=== PATIENT | female | born 1960 | race Caucasian/White ===

== ENCOUNTER 2018-09-27 15:55 | Outpatient (REF) | payer BC, SELFPAY ==
[2018-09-27 22:05] LABS: Hemoglobin A1C 5.7 % (4.5-6.2)
[2018-09-27 22:09] LABS: TSH (W/Ref FT4) 2.52 uIU/mL (0.358-3.74)
== END 2018-09-27 16:15 ==
LOC: NCHCN 15:55
PROVIDERS: PCP Nurse Practitioner; Visit Provider Nurse Practitioner
DX: R20.2 Paresthesia of skin (principal)
CPT/HCPCS: 83036; 84443

== ENCOUNTER 2018-09-28 07:53 | Outpatient (CLI) | payer BC, SELFPAY ==
--- NOTE | 2018-09-28 08:09 | DI.RAD_ITS ---
SYMPTOMS/DIAGNOSIS: PARESTHESIA OF FOOT, R20.2, RIGHT FOOT PAIN, M79.671 RIGHT FOOT: There are mild degenerative changes involving the right foot. The bony structures are normally mineralized. There is no evidence of a fracture or dislocation.
== END 2018-09-28 08:13 ==
PROVIDERS: PCP Nurse Practitioner; Visit Provider Nurse Practitioner
DX: M79.671 Pain in right foot (principal); M19.071 Primary osteoarthritis, right ankle and foot
CPT/HCPCS: 73630

== ENCOUNTER 2018-10-30 00:46 | Outpatient (CLI) | payer BC, SELFPAY ==
--- NOTE | 2018-10-30 08:23 | DI.MAMMO_ITS ---
SYMPTOMS/DIAGNOSIS: SCREENING, Z12.31 MAMMOGRAM: Mammograms were interpreted according to the usual protocol including computer analysis with CAD system, tomosynthesis and C view imaging. Comparison with prior examinations. Breast density B. No masses or microcalcifications are seen. There is nothing to suggest malignancy. IMPRESSION: Negative mammogram. Routine screening is recommended. Category I. MQSA ASSESSMENT OF FINDINGS: Negative. Category 1. Patient will receive a letter notifying them of these results. BI-RADS category B. There are scattered areas of fibroglandular density.
== END 2018-10-30 01:06 ==
PROVIDERS: PCP Nurse Practitioner; Visit Provider Obstetrics & Gynecology Gynecology
DX: Z12.31 Encounter for screening mammogram for malignant neoplasm of breast (principal)
CPT/HCPCS: 77063; 77067

== ENCOUNTER 2019-09-19 08:31 | Outpatient (REF) | payer BC, SELFPAY ==
[2019-09-19 12:53] LABS: Hemoglobin A1C 5.9 % (4.5-6.2)
[2019-09-19 12:58] LABS: ALT 42 U/L (14-59); Anion Gap 10.6 mmol/L (3-11); BUN 15 mg/dL (7-18); CO2 26.4 mmol/L (21.0-32.0); CREATININE 0.91 mg/dL (0.55-1.02); Calcium 9.2 mg/dL (8.5-10.1); Chloride 105 mmol/L (98-107); Glucose 98 mg/dL (70-100); Potassium 4.6 mmol/L (3.5-5.1); Sodium 142 mmol/L (136-145)
[2019-09-20 20:50] LABS: AST 20 U/L (15-37)
== END 2019-09-19 08:51 ==
LOC: NCHCN 08:31
PROVIDERS: PCP Nurse Practitioner; Visit Provider Nurse Practitioner Family
DX: Z00.00 Encounter for general adult medical examination without abnormal findings (principal); E78.00 Pure hypercholesterolemia, unspecified
CPT/HCPCS: 80048; 83036; 84450; 84460

== ENCOUNTER 2019-10-04 11:57 | Outpatient (REF) | payer BC, SELFPAY ==
[2019-10-04 13:46] LABS: Calculated LDL 157 mg/dL; Cholesterol 266 mg/dL (50-200); HDL Cholesterol 34 mg/dL (40-60); Triglyceride 376 mg/dL (30-150)
== END 2019-10-04 12:17 ==
LOC: NCHCN 11:57
PROVIDERS: PCP Nurse Practitioner; Visit Provider Nurse Practitioner Family
DX: Z00.00 Encounter for general adult medical examination without abnormal findings (principal); E78.00 Pure hypercholesterolemia, unspecified
CPT/HCPCS: 80061

== ENCOUNTER 2019-11-05 00:07 | Outpatient (CLI) | payer BC, SELFPAY ==
--- NOTE | 2019-11-05 10:16 | DI.MAMMO_ITS ---
EXAM: MG MAMMO SCREENING CLINICAL HISTORY: SCREENING Z12.31. TECHNIQUE: Full field digital CC and MLO mammographic images were obtained with 3D tomosynthesis and utilizing computer aided detection (CAD). COMPARISON: Available for comparison. FINDINGS: Masses/Architectural Distortion: None seen. Microcalcifications: No suspicious pleomorphic-type are seen. Skin Thickening/Nipple Retraction: None. IMPRESSION: 1. No significant interval change with no specific features of malignancy noted. 2. Unless there is more urgent need, screening mammography is recommended, as per [employer] guidelines. BI-RADS Cat 1 - Negative Breast Density - Category B - Scattered areas of fibroglandular density A negative radiographic report should not delay biopsy if a dominant or clinically suspicious mass is present. Up to ten percent of cancers are not identified on mammography. A negative report may reinforce clinical impression. Adenosis and dense breasts may obscure an underlying neoplasm. False positive reports average 6 to 10%. Patient will receive a letter notifying them of these results.
== END 2019-11-05 00:27 ==
PROVIDERS: PCP Nurse Practitioner; Visit Provider Nurse Practitioner Family
DX: Z12.31 Encounter for screening mammogram for malignant neoplasm of breast (principal)
CPT/HCPCS: 77063; 77067

== ENCOUNTER 2020-01-14 07:18 | Day surgery (SDC) | payer BC, SELFPAY ==
--- NOTE | 2020-01-14 06:49 | W.COLOREPORT ---
Date of service: 01/14/20 Time of Service: 09:37 Colonoscopy Report Date of procedure: 01/14/20 Pre-op diagnosis general: Colon Cancer Screening Post-op diagnosis procedure note: other (small polyp) Procedure: Colonoscopy with polypectomy by forceps Surgeon: Carlee Gomez Anesthesia proc note operative: other (General/ ASA 2/Lyssa Farfan CRNA) Estimated blood loss (mL): 2 Pathology: other (ASCENDING COLON POLYP) Complications: None Disposition: same day Indications: Mrs. Morales is a pleasant 59-year-old female who is here today to discuss a screening colonoscopy. Her last colonoscopy was in [address] White. At that time she had no polyps. Her only finding was that of mild diverticulosis. She has done well since then. A few years ago she did develop some intermittent diarrhea which she attributed to her anxiety. The episodes of diarrhea have decreased since she retired last year. She also has some intermittent urgency depending on what she eats. She has noted increase in loose stools and urgency after eating a lot of milk products as well as salads. She denies any melena or hematochezia. Once in a while she does have a little bit of blood on the tissue paper. No rectal pain. She has no family history of colon cancer. She has had no unintentional weight loss. She was recently diagnosed with prediabetes so she is at this point trying to eat a better diet and lose a little weight. Risks, benefits and complications have been reviewed. Complications include but are not limited to bleeding, pain, perforation, missed small lesion/polyp, sore throat, aspiration and adverse reaction to the medications. Questions were entertained and answered to their satisfaction and they wished to proceed. No guarantees were given or implied. Prep: Miralax/Dulcolax Procedure Start Time: 09:07 Procedure End Time: 09:33 Retraction Time: 18 minutes Findings: One small flat polyp just distal to the cecum Procedure Description: After informed consent was obtained the patient was taken to the procedure room and placed in a left decubitous position. Monitors were applied and a time out was done. The patients name, date of , procedure, allergies to medications and metal in their body was reviewed. The patient was then sedated. Once sedated and comfortable a rectal exam was done. External exam was normal. Internal exam revealed a normal sphincter tone and no palpable masses. The scope was then introduced and retro-flexed. No internal hemorrhoids were identified. The scope was then advanced to the cecum without difficulty. The TI and appendiceal orifice were identified. The prep was adequate. The scope was then slowly retracted over 18 minutes back into the rectum. Polyps were removed with cold forceps in the ascending colon. The scope was removed and the patient was woken up and taken back to Same day surgery in stable condition. The patient tolerated the procedure well and there were no immediate complications. Follow up: Follow up will depend on final pathology, unless they develop changes in bowel habits or other new gastrointestinal complaints.
--- NOTE | 2020-01-14 06:50 | W.PM.DSUDISC ---
Discharge Plan Disposition Patient Disposition: HOME Condition: Good Discharge Details Reason For Visit: Colon CAncer Screening Attending Provider: Carlee Gomez Primary Care Provider: Marilou Velasquez Home Meds and New Rx's Prescriptions: Continued multivitamin [Daily Multi-Vitamin] 1 EACH tablet 1 ea PO DAILY RF: 0 ergocalciferol (vitamin D2) 400 UNIT tablet 1 tab-cap PO DAILY RF: 0 fluoxetine 20 MG capsule 20 mg PO DAILY Qty: 60 RF: 6 Discontinued polyethylene glycol 3350 17 gram/dose powder 238 g PO ONCE Qty: 238 RF: 0 No Action ibuprofen [Advil] 200 mg Tablet 200 mg PO Q6H PRNRF: 0 fexofenadine [Vannessa Allergy] 180 mg Tablet 180 mg PO Q24H RF: 0 Discharge Instructions Additional Instructions: Findings: One small polyp Follow up: depends on final pathology report Please call if you develop: fevers >101.5 Nausea or Vomiting Abdominal pain that is not transient DAY SURGERY UNIT POST ENDOSCOPY INSTRUCTIONS 1. Because there will be medication in your system for the next 24 hours, you may feel a little sleepy. Your coordination will be affected. Therefore: a. Do not drive or operate dangerous equipment for 24 hours. b. Do not drink alcohol beverages for 24 hours (not even beer). c. Plan to go home and rest for the day. 2. Generally there are no restrictions on your activity after a day or so has gone by, but you may feel a bit fatigued for a few days. 3 After you arrive home you may have a light meal and return to a normal diet as you can tolerate it without feeling sick to your stomach. 4. After surgery, you may feel pain or discomfort. This should be only transient, but if it persists please contact your doctor. 5. If there are any questions regarding the findings of your procedure, please feel free to contact your doctor. 6. If you are unable to contact your doctor with a problem, contact the hospital at [phone]. 7. Continue all your regular medications unless directed otherwise. I understand the above instructions and have no questions. Signature of Patient or Responsible Adult Escort Date/Time Name of Responsible Adult Escort Signature of Nurse Date/Time Activity:: Activity as Tolerated Diet:: As Tolerated Discharge Orders Discharge Orders: Discharge Order (Routine); Ordered 01/14/20 Ordered By: Carlee Gomez
[2020-01-14 07:43] VITALS: BP 134/84; PULSE 76; RESP 18; TEMP 36.6; O2SAT 98
[2020-01-14] MEDS: Lactated Ringers 1,000 ML 80 ML IV (08:00)
--- NOTE | 2020-01-14 09:18 | BOWEL_PTH ---
PATIENT: Roxie Morales LOC: [facility] U#:[id number] AGE/SX: 59/F ROOM: RE01/14/[address]: Carlee Gomez MD : 1960 BED: DIS: 01/14/2020 SPEC #: [id number] RECD: 01/14/20 12:43 STATUS: DANIAL REQ #: [id number] JYOTI: 01/14/20 09:[address]: Carlee Gomez DEPT: Surgical Specimen RECD BY: Dai Tim ENTERED: 01/14/20 12:44 SP TYPE: Bowel OTHR DR: Marilou Velasquez Tissues: 1 - BIOPSY BOWEL Procedures: GROSS AND MICRO LEVEL 4 Comments: [id number]
[2020-01-14 10:25] VITALS: BP 134/74; PULSE 63; RESP 18; TEMP 36.1; O2SAT 96
== END 2020-01-14 11:21 | disposition home or self-care (01) ==
LOC: SUR 07:19
PROVIDERS: PCP Nurse Practitioner Family; Visit Provider Surgery
PROC: 0DJD8ZZ Inspection of Lower Intestinal Tract, Via Natural or Artificial Opening Endoscopic (ICD-10-PCS; CPT 45378; principal; 2020-01-14 08:30)
DX: Z12.11 Encounter for screening for malignant neoplasm of colon (principal); D12.1 Benign neoplasm of appendix
CPT/HCPCS: 45380; 88305; J2001; J2405; J2704

== ENCOUNTER 2020-10-15 08:45 | Outpatient (REF) | payer BC, SELFPAY ==
[2020-10-15 22:38] LABS: Calculated LDL 158 mg/dL (<100); Cholesterol 258 mg/dL (<200); HDL Cholesterol 37 mg/dL (40-60); Triglyceride 317 mg/dL (<150)
[2020-10-15 22:49] LABS: Hemoglobin A1C 5.6 % (<5.7)
[2020-10-16 04:48] LABS: Vitamin D 25 Total 33.2 ng/ml (30-100)
== END 2020-10-15 09:05 ==
LOC: NCHCN 08:45
PROVIDERS: PCP Nurse Practitioner Family; Visit Provider Nurse Practitioner Family
DX: Z00.00 Encounter for general adult medical examination without abnormal findings (principal); R73.03 Prediabetes; E78.00 Pure hypercholesterolemia, unspecified; E66.9 Obesity, unspecified
CPT/HCPCS: 80061; 82306; 83036

== ENCOUNTER 2021-09-29 13:29 | Outpatient (REF) | payer BC, SELFPAY ==
[2021-09-29 15:08] LABS: ALT 41 U/L (14-59); AST 21 U/L (15-37); Abs Immature Grans 0.02 10^3/uL (0.0-0.06); Absolute Basophil Count 0.05 10^3/uL (0.0-0.2); Absolute Eosinophil Count 0.14 10^3/uL (0.0-0.7); Absolute Lymphocyte Count 2.46 10^3/uL (1.2-3.4); Absolute Monocyte Count 0.87 10^3/uL (0.1-0.8); Absolute Neutrophil Count 4.51 10^3/uL (1.2-6.7); Alkaline Phosphatase 112 U/L (46-116); BUN 17 mg/dL (7-18); Basophils % 0.6; Bilirubin, Total 0.4 mg/dL (0.2-1.0); CREATININE 0.9 mg/dL (0.55-1.02); Calcium 9.3 mg/dL (8.5-10.1); Chloride 105 mmol/L (98-107); Eosinophils % 1.7; Glucose 98 mg/dL (74-106); HCT 45.6 % (36.0-46.0); HGB 15.5 g/dL (11.2-15.7); Immature Grans % 0.2; Lymphocytes % 30.6; MPV 10.7 fL (8.0-11.0); Monocytes % 10.8; Neutrophils % 56.1; Nucleated RBC 0 %; Platelet Count 289 10^3/uL (130-400); RDW 12.2 % (11.7-14.6); RDW-SD 43.8 fL; Sodium 142 mmol/L (136-145); Total Protein 7.6 g/dL (6.4-8.2); WBC 8.05 10^3/uL (4.4-10.8)
[2021-09-29 15:46] LABS: ESR 11 mm/hr (0-30)
[2021-09-30 20:48] LABS: Campylobacter PCR Negative (Negative); Salmonella PCR Negative (Negative); Shiga Toxin PCR Negative (Negative); Shigella/Enteroinvasive Ecoli Negative (Negative)
== END 2021-09-29 13:30 | disposition home or self-care (01) ==
LOC: NCHCN 13:29
PROVIDERS: PCP Nurse Practitioner Family; Visit Provider Family Medicine
DX: R19.7 Diarrhea, unspecified (principal)
CPT/HCPCS: 80053; 85652; 87329; 87505; 85025; 87177

== ENCOUNTER 2021-10-08 01:00 | Outpatient (CLI) | payer BC, SELFPAY ==
--- NOTE | 2021-10-08 10:20 | DI.MAMMO_ITS ---
Exam(s) MAMMO SCREENING EXAM: MAMMO SCREENING CLINICAL HISTORY: SCREENING, Z12.31 TECHNIQUE: Mammograms were interpreted according to the usual protocol including computer analysis w [employer] CAD system, tomosynthesis and C-view imaging. COMPARISON: 2010 through 2018 FINDINGS: The breasts are composed of scattered fibroglandular densities, Breast Density category B. No suspicious masses or suspicious microcalcifications are seen. No skin thickening or abnormal axillary lymph nodes are seen. There has been no significant change from prior exams. IMPRESSION: BI-RADS Category 1, Negative mammogram Yearly screening mammography is recommended. Breast Density - Category B, scattered fibroglandular densities. A negative radiographic report should not delay biopsy if a dominant or clinically suspicious mass is present. Up to ten percent of cancers are not identified on mammography. A negative report may reinforce clinical impression. Adenosis and dense breasts may obscure an underlying neoplasm. False positive reports average 6 to 10%. Patient will receive a letter notifying them of these results.
== END 2021-10-08 01:20 ==
PROVIDERS: PCP Nurse Practitioner Family; Visit Provider Nurse Practitioner Family
DX: Z12.31 Encounter for screening mammogram for malignant neoplasm of breast (principal)
CPT/HCPCS: 77063; 77067

== ENCOUNTER 2022-08-23 03:17 | Outpatient (CLI) | payer BC, SELFPAY ==
[2022-08-23] MEDS: Inhaler, Assist Device 1 EACH MC (15:17)
[2022-08-23] MEDS: Methacholine 100 MG VIAL IH (15:17)
[2022-08-23] MEDS: Albuterol HFA 18 GM 200 PUFF INH IH (15:17)
--- NOTE | 2022-08-27 15:04 | W.PFT ---
Date of service: 08/23/22 Time of Service: 13:00 Pulmonary Function Test Result Requesting Provider Marilou Velasquez Indications: REY Interpretation Spirometry: There is no airflow limitation. There was a 7% decrease in FEV1% with administration of 16 mg/mL methacholine. The FVC is low. Lung Volumes: There is mild restrictive lung disease. Diffusion Capacity: The diffusion is low. Airway Pressure: Increased airways resistance. Impression There is mild restrictive lung disease with a reduced diffusion. This may represent interstitial lung disease - recommend high resolution chest CT to evaluate for ILD if there is appropriate clinical concern. Clinical Correlation therefore is recommended.
== END 2022-08-23 03:18 | disposition home or self-care (01) ==
LOC: RT 03:17
PROVIDERS: PCP Nurse Practitioner Family; Visit Provider Nurse Practitioner Family
DX: R06.02 Shortness of breath (principal); R06.09 Other forms of dyspnea; J98.4 Other disorders of lung
CPT/HCPCS: 94060; 94070; 94726; 94729; 94010; J7674

== ENCOUNTER → 2022-08-23 09:32 | Outpatient (CLI) | payer BC, SELFPAY ==
--- NOTE | 2022-08-23 | DI.RAD_ITS ---
Exam(s) XR CHEST 2V PA LATERAL EXAM: XR CHEST 2V PA LATERAL CLINICAL HISTORY: SOB R06.02 TECHNIQUE: 2D digital imaging was performed. COMPARISON: No exams were available for comparison FINDINGS: HEART: Normal size. Aorta: PULMONARY VASCULATURE: Normal. LUNGS: Clear. PLEURAL SPACE: No pleural effusion or pneumothorax. BONE:Unremarkable for age. IMPRESSION: No acute abnormality. DATA REPOSITORY: RADIATION DOSE DELIVERED:
== END ==
PROVIDERS: PCP Nurse Practitioner Family; Visit Provider Nurse Practitioner Family
DX: R06.02 Shortness of breath (principal)
CPT/HCPCS: 71046

== ENCOUNTER 2022-09-21 14:06 | Outpatient (REF) | payer BC, SELFPAY ==
[2022-09-21 16:51] LABS: HCT 45.1 % (36.0-46.0); HGB 15.5 g/dL (11.2-15.7); MCH 33.4 pg (27.0-33.0); MCHC 34.4 % (32.0-36.0); MCV 97 fL (80-95); MPV 10.9 fL (8.0-11.0); Platelet Count 276 10^3/uL (130-400); RBC 4.64 10^6/uL (3.93-5.22); RDW 12.2 % (11.7-14.6); RDW-SD 43.8 fL; WBC 8.26 10^3/uL (4.4-10.8)
[2022-09-21 17:20] LABS: ALT 110 U/L (14-59); AST 83 U/L (15-37); Albumin 3.9 g/dL (3.4-5.0); Alkaline Phosphatase 105 U/L (46-116); BUN 18 mg/dL (7-18); Bilirubin, Total 0.5 mg/dL (0.2-1.0); CREATININE 0.8 mg/dL (0.55-1.02); Calcium 9.5 mg/dL (8.5-10.1); Chloride 104 mmol/L (98-107); Estimated GFR 82.23 (mL/min/1.73m2); Glucose 103 mg/dL (74-106); Potassium 4.1 mmol/L (3.5-5.1); Sodium 139 mmol/L (136-145); Total Protein 7.9 g/dL (6.4-8.2)
== END 2022-09-21 14:07 | disposition home or self-care (01) ==
LOC: NCHCN 14:06
PROVIDERS: PCP Nurse Practitioner Family; Visit Provider Family Medicine
DX: R06.02 Shortness of breath (principal); R73.03 Prediabetes
CPT/HCPCS: 80053; 85027

== ENCOUNTER → 2022-10-15 00:14 | Outpatient (CLI) | payer BC, SELFPAY ==
--- NOTE | 2022-10-15 | DI.US_ITS ---
APPROVED REPORT EXAM: Comprehensive 2D, Doppler, and color-flow Echocardiogram Patient Location: Out-Patient Squaring Machine Operator: Ayesha Cruz RDCS (AE) Indications: SOB Other Information Study Quality: Adequate Conclusion Normal left ventricular wall thickness and chamber size. Estimated ejection fraction is 60%. Wall m otion is normal Normal right ventricular size and systolic function Both atria are normal in size There is no structural or hemodynamically significant valvular disease Right ventricular systolic pressure could not be estimated Wall motion Left Ventricle The left ventricle is normal size. The left ventricular systolic function is normal. The left ventric ular ejection fraction is within the normal range. There is normal left ventricular wall thickness. T here is normal LV segmental wall motion. There is no ventricular septal defect visualized. LVEF is 60 %. Right Ventricle The right ventricle is normal size. The right ventricular systolic function is normal. Atria The left atrium size is normal. The right atrium size is normal. The interatrial septum is intact wit h no evidence for an atrial septal defect. Aortic Valve The aortic valve is normal in structure. Aortic valve is trileaflet. There is no aortic valvular sten osis. No aortic regurgitation is present. Mitral Valve The mitral valve is normal in structure. No evidence of mitral valve stenosis. Trace mitral regurgita tion. Tricuspid Valve The tricuspid valve is normal in structure. There is no tricuspid valve stenosis. Trace tricuspid reg urgitation. Unable to assess PA pressure. Pulmonic Valve The pulmonary valve is normal in structure. There is no pulmonic valvular stenosis. Trace pulmonic re gurgitation. Great Vessels The aortic root is normal in size. The ascending aorta is normal in size. Aortic arch is not well vis ualized. IVC is normal in size and collapses >50% with inspiration. Pericardium There is no pericardial effusion. 2D Dimensions IVSD d PLAX 1.03 cm F: 0.6-1.0 LV Vol A2C d MOD 82.6 mL LVPW d PLAX 0.98 cm F: 0.6 - 1.0 LV Vol A4C d MOD 82.6 mL LVID d PLAX 4.43 cm F: 3.8 - 5.2 LA vol/ BSA A2C s A-L 18.1 mL/m2 LVDs 3.00 cm F: 2.2 - 3.5 LA vol/ BSA A4C s A-L 21.3 mL/m2 Ao Root d 2.76 cm F: 2.7 - 3.3 LA Vol/ BSA Biplane s A-L 19.9 mL/m2 RA Area A4C 10.95 cm2 LA Area A4C s MOD 16.30 cm2 RA Vol/ BSA A4C s A-L 10.5 mL/m2 LA Area A2C s MOD 14.76 cm2 Ao Asc Diam d 2.94 cm F: 2.3 - 3.1 LV EF A4C MOD 65.9 % LV EF Teichholz 60.3 % LV EF A2C MOD 59.2 % LVEF (Figueroa's) 61.09 % F: 54 - 74 LV EF Biplane MOD 61.1 % LV Volume 62.71 mL F: 46 - 106 SV 51.22 mL LV Volume Index 31.19 mL/m2 F: 29 - 61 SV Index 25.39 mL/m2 LV Vol Biplane MOD 83.8 mL FS 31.95 % M-Mode TAPSE 2.47 cm (M/F) >1.7 LV Diastology MV E' medial 0.106 (>0.07 m/s) E/A Ratio 0.7 LV E/e MED 5.40 (<14) MV E Vmax 0.57 (0.4-1.3 m/s) MV E' lateral 0.073 (>0.1 m/s) MV A Vmax 0.80 (0.4-1.3 m/s) LV E/e LAT 7.80 (<14) MV E/A Ratio 0.69 MV E/E' medial 5.42 MV E/E' lateral 7.83 Aortic Valve LVOT Area 3.08 cm2 AoV Area Vmax 2.75 cm2 LVOT Vmax 1.11 m/s AoV Area/ BSA (Vmax) 1.36 cm2/m2 LVOT Mean Mohit. 0.73 m/s VIKTORIA Mean Mohit. 2.70 cm2 LVOT Peak Grad 4.9 mmHg VIKTORIA Mean Mohit. Index 1.34 cm2/m2 LVOT Mean Grad 2.5 mmHg LVOT VTI 0.247 m LVOT Diam s 1.95 cm AoV Vmax 1.24 m/s Velocity Ratio 0.89 AoV Mean Mohit. 0.83 m/s AoV Peak Grad 6.2 mmHg LVOT SV 75.98 mL AoV Mean Grad 3.1 mmHg AoV VTI 0.256 m AoV Area VTI 2.97 cm2 AoV Area/ BSA (VTI) 1.47 cm/m2 Mitral Valve MV DT 305 (160-240 msec) MV PHT 89 msec MV Area PHT 2.49 cm2 MV VTI 0.276 m MV Area VTI 2.76 (4.0-6.0 cm2) Pulmonary Valve PV Vmax 0.83 (0.5-1.5 m/s) RVOT Peak Gr. 2.23 mmHg PV Peak Grad 2.8 mmHg RVOT Mean Gr. 1.10 mmHg PV Mean Grad 2.0 mmHg RVOT VTI 0.160 m PV VTI 0.179 m RVOT Vmax 0.75 m/s
--- NOTE | 2022-10-15 | DI.CT_ITS ---
Exam(s) CT CHEST WO EXAM: CT CHEST WO CLINICAL HISTORY: SOB R06.02. TECHNIQUE: Multi planar reconstructions were performed. CONTRAST MATERIAL: None COMPARISON: CR XR CHEST 2V PA LATERAL from 08/23/2022 FINDINGS: CHEST: LUNGS: There are mild increased benign-appearing lung markings medially in both lower lobes, not asso ciated with pleural effusions. There are no ominous pulmonary nodules. Tiny 2 millimeter probable g ranuloma in the mid right lung is noted. No significant focal findings in the trachea and mainstem b ronchi. No bronchiectasis MEDIASTINUM: There is no obvious hilar nor mediastinal adenopathy. Visualized thyroid unremarkable.No obvious axillary adenopathy CARDIAC: Heart size is normal. There is no pericardial effusion.Caliber of the thoracic aorta is wit hin normal limits. VISUALIZED UPPER ABDOMEN:No adrenal masses. No splenomegaly. OSSEOUS: No significant osseous lesions.. IMPRESSION: 1. There are similar appearing increased markings in the medial aspect of both lower lobes., slightly more so on the right side. Benign appearance. No associated pleural effusions. No adenopathy. RADIATION DOSE DELIVERED: Total DLP DATA REPOSITORY: All CT scans at this facility are submitted to the National Radiology Data Registry (NRDR) Dose Index Registry (DIR) with the [employer] ([employer]). RADIATION OPTIMIZATION: All CT scans at this facility use at least one of these dose optimization te chniques: automated exposure control; mA and/or kV adjustment per patient size (includes targeted exa ms where dose is matched to clinical indication); or iterative reconstruction.
--- NOTE | 2022-10-15 | DI.MAMMO_ITS ---
Exam(s) MAMMO SCREENING EXAM: MAMMO SCREENING CLINICAL HISTORY: SCREENING FOR BREAST CANCER Z12.39. TECHNIQUE: Bilateral full field digital CC and MLO mammographic images were obtained with 3D tomosyn thesis and utilizing computer aided detection (CAD). COMPARISON: Prior mammograms were reviewed. FINDINGS: There has been no significant change in the appearance and distribution of the fibroglandular tissue. Asymmetric tissue medially in the breast is unchanged prior studies. There are no new spiculated masses nor malignant appearing microcalcification groups. Benign-appearing micro and macro calcifications are again noted in both breasts. There is no significant architectural distortion nor skin thickening-retraction. IMPRESSION: No radiographic evidence of malignancy. Stable benign findings. BI-RADS Category 2 - Benign Findings Breast Density - Category A - Almost entirely fatty Breast density Category C or D implies that the patient has dense breast tissue. Dense breast tissue can make it harder to find cancer on a mammogram. Dense breast tissue is also associated with an incr eased risk of breast cancer. This information about the result of the mammogram report was provided to the patient to raise their awareness. Use this report when you speak with the patient about their risks for breast cancer, which includes their family history. At that time, you may recommend additional screening tests (Ultrasoun d or MRI) as these tests may add significant information. A negative radiographic report should not delay biopsy if a dominant or clinically suspicious mass is present. Up to ten percent of cancers are not identified on mammography. A negative report may reinforce clinical impression. Adenosis and dense breasts may obscure an underlying neoplasm. False positive reports average 6 to 10%. Patient will receive a letter notifying them of these results.
--- OUTSIDE RECORDS SUMMARY | 2022-10-15 00:15 | XMS_ITS | Encounter Summary ---
:1960 Author Organization [facility] [place] [address] Care Team Providers Name Role Phone Conrado Chilel MD Primary Care Provider Reason for Visit Reason Comments Skin Check history of AKs Encounter Details Date Type Department Care Team Description 05/11/2018 Office Visit Dermatology at Dontae Vidal MD [facility] [address] [place] [address] Fuentes angioma; Bree Bee PA [facility] [address] [place] [address] Dermatofibroma; [address] Seborrheic keratosis; [place] [address] History of insect bite; [phone] History of nons pecific rash Social History Tobacco Use Types Packs/Day Years Used Date Smoking Tobacco: Never Smokeless Tobacco: Never Sex Assigned at Date Recorded Not on file documented as of this encounter Patient Instructions Patient InstructionsKiera Chacon V - 05/11/2018 8:00 AM EDT Recommended products: - Zeasorb AF powder - Vanicream antiperspirant - Hydrocortisone cream for bug bites documented in this encounter Progress Notes Bree Mosher PA - 05/11/2018 8:00 AM EDT DERMATOLOGY - ESTABLISHED PATIENT CLINIC NOTE Date of service: 05/11/2018 Roxie Morales : 1960 Dermatology Physician Press Loader Note: Bree Mosher PA-C (Bri) Chief Complaint Patient presents with ??? Skin Check history of AKs This is an established patient, last seen by me on 05/09/17 for skin exam. HPI: Roxie Morales is a 57 y.o. female who presents for a full skin check. Concerns today: rough spot on right lower cheek, itching under her breasts. Treats the redness and itching under her breasts with OTC miconazole. Also reports that she has developed a stronger reaction to insect bites in the past few years and wondering about any treatment for the itching. Usually treats with Sarna lotion. Skin History: Actinic keratosis No history of skin cancer Medical History: No past medical history on file. No Defibrillator/pacemaker No Anti-coagulants Medications: Current Outpatient Prescriptions on File Prior to Visit Medication Sig Dispense Refill ??? ESTRING 2 mg (7.5 mcg /24 hour) Ring 0 ??? multivitamin (THERAGRAN) Tablet Take 1 tablet by mouth daily. ??? FLUoxetine (PROZAC) 20 mg tablet Take 20 mg by mouth daily. ??? ergocalciferol (VITAMIN D) 50,000 unit capsule No current facility-administered medications on file prior to visit. Allergies: Allergies Allergen Reactions ??? 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 - Skin: As per HPI; no other skin concerns. Examination: - Constitutional: Patient was alert, well-appearing and in no noticeable distress. - Skin: A full skin examination was performed. This includes the head, neck, face and scalp including behind the ears. The chest, abdomen, back, and axillae, as well as the arms, hands, palms, fingers.Legs, feet, toes and soles were also examined. Buttocks and breasts were also examined with patient consent. Genitalia were not examined. Patient declined genital exam. Bo Skin Type: 2 Diagnosis/Assessment/Treatment Plan: 1. History of nonspecific rash - Inframammary folds are clear; patient reported history of itching and pink color, no scale - Recommended patient avoid habits that perpetuate warm, damp environment in the area - such as extended wear of wet bathing suits. - Recommended patient use an antifungal powder for prevention and maintenance (Zeasorb AF). Discussed adding in Vanicream antiperspirant. -Happy to evaluate when rash flares- doubt inverse psoriasis, intertrigo but I let her know she can be seen during a flare if she'd like us to evaluate. 2. Seborrheic keratoses - Scattered, including the right lower cheek: Multiple 0.4-0.6cm brown papules with waxy, stuck-on appearance. Milia-like cysts, comedone-like openings and/or fissuring on dermoscopy. - Patient reassured of benign nature. - Advised patient to call if areas become inflamed or irritated. 3. History of insect bites - Clear on exam today - Recommended patient use an OTC topical steroid such as hydrocortisone if needed for itching instead of Sarna if Sarna doesn't work well. 4. Dermatofibroma (DF) - Right forearm, right anterior thigh: firm papule, centrally raised and sclerotic, with peripheral hyperpigmentation and dimpling with lateral pressure. - Patient reassured of benign nature. - No treatment necessary. 5. Fuentes angiomas - Scattered: Multiple 0.2-0.4cm bright red, well-demarcated papules. - Patient reassured of benign nature. - No treatment necessary. [facility] [id number] RTC in 1 year for a full skin exam, sooner if needed. Reminder placed in scheduling system. Instructed to call if problems arise. Patient verbally expressed understanding. I specifically asked the patient at the end of the visit if there were any further concerns or questions and the patient verbally stated there were no other concerns or questions. All questions were answered and all concerns were addressed. Note initiated by GEORGETTE TOBIAS, Clinical Scribe - I am documenting this encounter acting as the scribe for and in the presence of Bree Mosher PA-C (Bri) I performed the above scribed service and agree with the accuracy of the documentation in this encounter. Reviewed and signed by Bree Mosher PA-C (Bri) Dermatology [facility] Patient seen in conjunction with staff physician: Azalia Espinosa MD Section of Dermatology [facility] Azalia Espinosa MD - 05/11/2018 8:00 AM EDT Patient seen and examined with Livia Mosher PA-C. We reviewed the patient's history. I personally examined the patient. We discussed the assessment and plan. Specifically, ?? Expand All Collapse All I have seen and examined this patient.?? I evaluated the skin findings: ??- I noted benign skin exam I went over the patient's history and discussed the symptoms. I discussed recommendations and therapeutic measures. ??- I agree with plan as documented by Livia Mosher PA-C. We will see the patient back as planned; they will call if problems arise. Patient seen in conjunction with Bree Mosher PA-C (Bri) Signed by: AZALIA ESPINOSA MD Section of Dermatology [facility] documented in this encounter Plan of Treatment Not on filedocumented as of this encounter Visit Diagnoses Diagnosis Fuentes angioma Nevus, non-neoplastic Dermatofibroma Benign neoplasm of skin, site unspecifie d Seborrheic keratosis Other seborrheic keratosis History of insect bite History of nonspecific rash Rash and other nonspecific skin eruption documented in this encounter Care Teams Sales Special Agent Relationship Specialty Start Date End Date Conrado Chilel MD PCP - General 10/20/10 04/27/20 [address] [place] [address] documented as of this encounter
--- OUTSIDE RECORDS SUMMARY | 2022-10-15 00:15 | XMS_ITS | Encounter Summary ---
:1960 Author Organization [facility] [place] [address] Care Team Providers Name Role Phone Marilou Velasquez APRN Primary Care Provider Encounter Details Date Type Department Care Team Description 09/11/2021 Office Visit Dermatology at Azalia Graham A ctinic keratosis; Cristian MULLER Seborrheic keratosis; [address] [facility] Fuentes angioma; [place], [place] CENTER Multiple benign nevi of upper extremity, lower extremity, and trunk; [id number] [facility] Lentigines; [phone] RD-DERMATOLOGY Dermatofibroma [place], [place] [address] Social History Tobacco Use Types Packs/Day Years Used Date Smoking Tobacco: Never Smokeless Tobacco: Never Sex Assigned at Date Recorded Not on file documented as of this encounter Progress Notes Azalia Blancas MD - 09/11/2021 9:00 AM EDT Images from the original note were not included. DEPARTMENT OF DERMATOLOGY [facility] D[facility]at[facility] Provider: Azalia Blancas MD Patient's preferred name Caty Preferred contact method for results [x]Phone [x]myD-H []Letter Detailed phone message OK? yes Are there any other people with whom we may discuss your care? 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 Patient returns to clinic today for a full skin cancer screening: - Rough bumps on left side and back, present for years no previously treatment - Bump on Left buddhism, 1 year, no previous treatment. -bump on right cheek, present several years, no previous treatment -Bump on right upper chest, present couple of years, no previous treatment Last visit at [facility] Derm: 07/18/2020 Last visit with this provider: Visit date not found Medications: Reviewed in eD-H Allergies: Reviewed in eD-H Skin Examination: Full skin examination: Patient asked to undress to their comfort level. Verbalized that the provider's preference is that patient remove all clothing and that the provider will not examine areas patient elects to keep covered. Examination of the scalp, hair, head, face, ears, neck, chest, axillae, abdomen, back, buttocks, genitalia, and upper and lower extremities was normal with the exception of thefindings below. Assessment/Plan # Actinic Keratosis-0.2-0.3cm scaly irregular pink papule(s) on the right cheek x2 - Discussed the natural history and etiology of actinic keratoses including the premalignant potential of these lesions. -Discussed treatment options. Procedure Note: Procedure: Destruction of lesion(s) with cryotherapy. Number: 2 Location: as above Discussed procedure and expectations including risks (including risk of hypopigmentation) and benefits. Verbal consent obtained. Frozen with LN2, 15-30 second thaw time, TWICE. There were no complications; the patient tolerated the procedure well. Post-procedure expectations and wound care were reviewed. # Seborrheic keratoses Scattered yellow to ruiz stuck on papules 3-6 mm in size on face, chest, back,arms, and legs -benign nature of lesions discussed -patient reassured. # Fuentes Angioma(s) Multiple 0.2-0.4cm bright red, well-demarcated papules with well formed lobules on dermoscopy -reassured pt of benign nature and that more would come with increasing age # Nevi-scattered brown macules on the back, chest, and face w/o concerning findings on dermoscopy # Plantar mole- on the left sole is a 3mm fibrillar macule -pt reassured -advised the pt to monitor nevi monthly and if they are growing, changing color, or new lesions appear pt should call back to be seen before their next FBSE # Intertrigo: Patient with slightly erythematous and macerated plaques of the bilateral inframammarycreases and inguinal fold. Intertrigo is a chronic inflammatory condition of approximating or opposing skin surfaces (intertriginous skin) such as the axillae, groin, inframammary folds, abdominal folds, and/or labiocrural folds.Clinically, there is erythema and sometimes maceration, erosions, or fissuring. Most frequently seen in obese and/or diabetic patients -Not active on exam today. # Solar lentigines -scattered light brown 3-6mm macules on the upper back, chest, BL arms and BL lower extremities - continue photoprotection - return to clinic for any growing or changing spots # Dermatofibroma- 4mm brown macule on the right antecubital fossa and right thigh with stellate appearence on dermoscopy Counseled: Dermatofibromas, benign/non-cancerous growth of dermal dendritic histiocyte cells, commonly arise at site of a minor injury and etiology is unknown, prognosis, treatment options if recurs and/or is symptomatic. Other: ??? Sun protection discussed (protective clothing and SPF30+ broad-spectrum sunscreen) RTC: 1- 2 years FSE []Note routed to secretary bookkeeper [x]Recall placed in scheduling system []Appointment scheduled at checkout Scribe attestation: Aury Weinberg LPN has performed the documentation for this encounter in the presence of and acting as a scribe for Azalia Blancas MD. I performed the above scribed service and agree with the accuracy of the documentation in this encounter. Reviewed and signed by: Azalia Blancas MD Dermatology [facility] documented in this encounter Plan of Treatment Not on filedocumented as of this encounter Visit Diagnoses Diagnosis Actinic keratosis Seborrheic keratosis Other seborrheic keratosis Fuentes angioma Nevus, non-neoplastic Multiple benign nevi of upper extremity, lower extremity, and trunk Lentigines Other dyschromia Dermatofibroma Benign neoplasm of skin, site unspecifie d documented in this encounter Care Teams Independent Freight Agent Relationship Specialty Start Date End Date Marilou Velasquez APRN PCP - General Family Medicine 04/28/20 [address] [place] [address] documented as of this encounter
--- OUTSIDE RECORDS SUMMARY | 2022-10-15 00:15 | XMS_ITS | Encounter Summary ---
:1960 Author Organization [facility] [place] [address] Care Team Providers Name Role Phone Conrado Chilel MD Primary Care Provider Reason for Visit Reason Comments Follow-up Encounter Details Date Type Department Care Team Description 11/08/2019 Office Visit Dermatology at [facility] Azalia Espinosa MD Rash [address] [facility] [place] [address] [facility]-DER[facility] [phone] [place], [place] [address] (Wo rk) Social History Tobacco Use Types Packs/Day Years Used Date Smoking Tobacco: Never Smokeless Tobacco: Never Sex Assigned at Date Recorded Not on file documented as of this encounter Progress Notes Azalia Espinosa MD - 11/08/2019 2:00 PM EST DERMATOLOGY ESTABLISHED PATIENT CLINIC NOTE Date of service: 11/08/2019 Roxie Morales : 1960 Provider: Azalia Espinosa MD Chief Complaint Patient presents with ??? Follow-up SKIN HISTORY: Actinic keratosis Seborrheic dermatitis No history of skin cancer Family History: No family history of melanoma Father- BCC No family history of atopy, psoriasis or other skin disease ?? 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 ? PATIENT PREFERENCES Preferred name: Caty Preferred contact method with results: home phone Detailed message including biopsy results okay?: yes HPI Roxie Morales is a 59 y.o. year old female. Established patient, last seen by me on 06/28/19. Here today for a follow up of an area located on the left tricep. Reports she applied Lotrimin and thecondition resolved. ADR: Allergies Allergen Reactions ??? Penicillins CIS - Rash, CIS - Rash MEDS: Current Outpatient Medications Medication Sig Dispense Refill ??? multivitamin (THERAGRAN) Tablet Take 1 tablet by mouth daily. ??? FLUoxetine (PROZAC) 20 mg tablet Take 20 mg by mouth daily. ??? ergocalciferol (VITAMIN D) 50,000 unit capsule No current facility-administered medications for this visit. ROS General: feeling well Skin: denies other skin complaints EXAM General: NAD, pleasant, cooperative Skin: A focused skin examination of the left tricep, significant for??the following: Significant skin findings: A. No skin findings appreciated upon exam today. ASSESSMENT/PLAN: A. Non-specific lesion resolved FOLLOW UP: RTC in June 2020 for a full skin exam; sooner if needed. Reminder placed in system to schedule. Instructed patient to call with questions or concerns. I am documenting this encounter acting as the scribe for and in the presence of Dr. Espinosa.: ALINA ROMO LPN and Chavez Menon I performed the above scribed service and agree with the accuracy of the documentation in this encounter. Azalia Espinosa MD Section of Dermatology [facility] documented in this encounter Plan of Treatment Not on filedocumented as of this encounter Visit Diagnoses Diagnosis Rash Rash and other nonspecific skin eruption documented in this encounter Care Teams Mover Relationship Specialty Start Date End Date Conrado Chilel MD PCP - General 10/20/10 04/27/20 [address] [place] [address] documented as of this encounter
--- OUTSIDE RECORDS SUMMARY | 2022-10-15 00:15 | XMS_ITS | Encounter Summary ---
:1960 Author Organization [facility] [place] [address] Care Team Providers Name Role Phone Marilou Velasquez APRN Primary Care Provider Reason for Visit Reason Comments Follow-up Last seen by JS 07/2015. GP J une 1st for fullness and HL AD. 2 weeks ago it started to resolve. Consultation (Routine) - Specialty Diagnoses / Procedures Referred By Contact Refer red To Contact Otolaryngology Diagnoses Unspecified hearing loss, unspecified ear HEARING LOSS Destini Hartman MD Saunders, James E, MD [address] [facility] [place] [address] 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 [address] Social History Tobacco Use Types Packs/Day Years Used Date Smoking Tobacco: Never Smokeless Tobacco: Never Sex Assigned at Date Recorded Not on file documented as of this encounter Last Filed Vital Signs Vital Sign Reading Time Taken Comments Blood Pressure 149/84 07/18/2020 8:57 AM EDT Pulse 64 07/18/2020 8:57 AM EDT Temperature 36.8 ??C (98.3 ??F) 07/18/2020 8:57 AM EDT Respiratory Rate 18 07/18/2020 8:57 AM EDT Oxygen Saturation 98% 07/18/2020 8:57 AM EDT Inhaled Oxygen Concentration - - Weight 91.5 kg (201 lb 11.2 oz) 07/18/2020 8:57 AM EDT Height 167.6 cm (5' 6) 07/18/2020 8:57 AM EDT Body Mass Index 32.56 07/18/2020 8:57 AM EDT documented in this encounter Progress Notes Sonny Corcoran PA - 07/18/2020 9:00 AM EDT HPI: h/o pulsatile tinnitus in left ear and CHL with neg MRI and CT thought c/w otosclerosis (no SCCD), last seen in clinic 05/17/2014. Doesn't notice change in hearing. Does occ have fullness AD and tinnitus L>>R.. Evaluated by Neurology in [place], [place] for her dizziness, diagnosed with migraine related dizziness. Returns today after a trial of low sodium diet. Still with fullness, tinnitus and dizziness. Is postmenopausal ~ 1 - 2 yrs ago Last appointment summary: Low frequency HL with fullness . 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 She would like to explore amplification as she is straining with male voices. Dizziness is most likely related to migraine and perimenopausal state. May consider low dose progesterone. Interval history: Patient reports onset of Right ear fullness and hearing loss that started in February. She was evlauated by her PCP who recommended trying a daily dose of Claritin. Tried this for a month and then added Flonase nasal spray, 2 sprays in each nostril daily. Symptoms resolved after ~ 1 month. Today patient reports symptoms had remained resolved with no recurrence. Is now using Flonase, 1 spray each nostril daily Known history of Left hearing loss, most consistent with otosclerosis. She denies any new or change in symptoms of her Left ear. Denies pain, discharge, vertigo, hearing change, vertigo PMH: reviewed, no interval change System review: the Constitutional and ENT systems are thoroughly reviewed for any changes. Pertinentpositives are listed in the HPI. Physical Exam The patient is well developed, well nourished. Responds to commands appropriately. Vocalizes in a strong clear voice. Alert and oriented x3. Ears: The pinnas are without erythema or mass. Facial motor function strong and symmetrical. Both ears were carefully examined using binocular microscopy Left side: Ear canal clear with mild, normal cerumen, exostosis anterior, inferior canal Tympanic membrane intact and translucent with normal mobility on pneumatic otoscopy. Fistula test isnegative. Right side: Ear canal clear with mild, normal cerumen, exostosis anterior, inferior canal Tympanic membrane intact and translucent with normal mobility on pneumatic otoscopy. Fistula test isnegative. Audiological Exam Audiogram 07/18/2020 Right- Normal Hearing Left- Mild mixed hearing loss Tympanograms: Right- Type As; Left Type As Word discrimination: Right- 100% at 85dB; Left- 100% at 85dB A/P: Signs and symptoms most consistent of serous otitis media that has resolved. Dr. Anaya recommended patient should continue to use Flonase daily and if symptoms should return, she can add Afrin nasalspray for 3 days. He recommended returning to audiology yearly for hearing test. No ENT follow up isneeded unless symptoms change or do not resolve. Patient was agreeable to this and all questions were answered. Sonny Corcoran MPAS, MS, PA-C, [place] [address] phone: [phone] Sarabjit Anaya MD - 07/18/2020 9:00 AM EDT I have discussed the case with Dre PALOMINO, reviewed the pertinent details in the chart, interviewed and examined the patient. I agree with the documented history, exam findings and management plan.Stable mild MHL - most likely due to otosclerosis. 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
--- OUTSIDE RECORDS SUMMARY | 2022-10-15 00:15 | XMS_ITS | Encounter Summary ---
:1960 Author Organization [facility] [place] [address] Care Team Providers Name Role Phone Conrado Chilel MD Primary Care Provider Reason for Visit Reason Comments Skin Check Encounter Details Date Type Department Care Team Description 05/09/2017 Office Visit Dermatology at Emilia Martines III, MD [facility] [address] EDWAR AREVALO-DERMATOLGY [place], [place] [id number] Lentigines; Road Bree Mosher PA [facility] [address] EDWAR AREVAL[place]MATOLOG[place], [place] [id number] Seborrheic keratosis; [address] Multiple benign nevi; [place], [place] Fuentes angioma; [id number] Dermatofibroma [phone] Social History Tobacco Use Types Packs/Day Years Used Date Smoking Tobacco: Never Smokeless Tobacco: Never Sex Assigned at Date Recorded Not on file documented as of this encounter Progress Notes Bree Mosher PA - 05/09/2017 2:30 PM EDT DERMATOLOGY - ESTABLISHED PATIENT CLINIC NOTE Date of service: 05/09/2017 Roxie Morales : 1960 Dermatology Physician Book Coverer Note: Bree Mosher PA-C (Bri) Chief Complaint Patient presents with ??? Skin Check This is an established patient, last seen by me on 05/19/16 for skin exam. HPI: Roxie Morales is a 56 y.o. female who presents for a full skin check. She is aware that her last check was one week short of one year ago and she and I are unaware if her insurance will cover another full skin check, but she verbalizes understanding of this and request the exam today. She has a scaly lesion on the right cheek which has been present for about one month as well as a few light brown spots on her right dorsal wrist and left flank. Denies itching, bleeding, or tenderness of any of these lesions. Denies prior treatments. Skin History: Actinic keratosis No history of skin cancer Medical History: No past medical history on file. No Defibrillator/pacemaker No Anti-coagulants Medications: Current Outpatient Prescriptions on File Prior to Visit Medication Sig Dispense Refill ??? PREMARIN 0.625 mg/gram Cream 0 ??? FLUoxetine (PROZAC) 20 mg tablet Take 20 mg by mouth daily. ??? CIS Free Text Med - Multivite\E\ ??? ergocalciferol (VITAMIN D) 50,000 unit capsule No current facility-administered medications on file prior to visit. Allergies: Allergies Allergen Reactions ??? 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 [...] declined genital exam. Bo Skin Type: 2 Specific skin findings: 1. Face: 0.3-0.6cm light-brown evenly pigmented, well-demarcated macules. 2. Face, trunk and extremities: Multiple 0.4-0.6cm brown papules with waxy, stuck-on appearance. Milia-like cysts, comedone-like openings and/or fissuring on dermoscopy. 3. Trunk and extremities: 0.3-0.5cm, medium-brown, evenly-pigmented macules and papules. All with regular pigment pattern on dermoscopy. No pigmented lesions suspicious for melanoma. 4. Scalp, trunk and extremities: Multiple 0.2-0.4cm bright red, well-demarcated papules. 5. Right anterior thigh: firm papule, centrally raised and sclerotic, with peripheral hyperpigmentation and dimpling with lateral pressure. Diagnosis/Assessment/Treatment Plan: 1. Lentigines - Patient reassured of benign nature. - Observe skin for change in color, size or character. Call if such occur. 2. Seborrheic keratosis (nonsymptomatic) - Patient reassured of benign nature. - Advised patient to call if areas become inflamed or irritated. 3. Benign appearing nevi with even pigmentation and well defined margins are noted (nonsymptomatic) - No lesions suspicious for melanoma identified on exam today. Will continue to monitor. - Discussed importance of sun protection, sun avoidance strategies, protective clothing, and sunscreen. I discussed warning signs for skin cancer, including the ABCDEs of melanoma. ?? - Patient reassured of benign nature. - Observe skin for change in color, size or character. Call if such occur. 4. Fuentes angiomas (nonsymptomatic) - Patient reassured of benign nature. - Advised patient to call if areas become inflamed or irritated. 5. Dermatofibroma (DF) (nonsymptomatic) - Patient reassured of benign nature. - Advised patient to call if areas become inflamed or irritated. [facility] [id number] RTC in 1 year for a full [...] all concerns were addressed. Note initiated by PELON L ALLEY, FARM AGENT Cindy Ludmila, Clinical Scribe - I am documenting this encounter acting as the scribe for and in the presence of Bree Armando) DARIA Mosher I performed the above scribed service and agree with the accuracy of the documentation in this encounter. Reviewed and signed by Bree Mosher PA-C (Bri) Dermatology [facility] Patient seen in conjunction with staff physician: Nate Bacon MD Section of Dermatology [facility] Nate Bacon III, MD - 05/09/2017 2:30 PM EDT I have seen and examined this patient. I evaluated the skin findings: - I noted the patient for a skin check - I noted lentigines, brendan kers and benign appearing nevi - I noted fuentes angioma and dermatofibroma I went over the patient's history and discussed the symptoms. I discussed recommendations and therapeutic measures. - I concur with the note as written and findings presented as well as the treatment proposed. We will see the patient back as planned; they will call if problems arise. Patient seen in conjunction with DARIA Maynard MD (Bri) Staff Dermatology documented in this encounter Plan of Treatment Not on filedocumented as of this encounter Visit Diagnoses Diagnosis Lentigines Other dyschromia Seborrheic keratosis Other seborrheic keratosis Multiple benign nevi Benign neoplasm of skin, site unspecifie d Fuentes angioma Nevus, non-neoplastic Dermatofibroma Benign neoplasm of skin, site unspecifie d documented in this encounter Care Teams Dial Equipment Engineer Relationship Specialty Start Date End Date Conrado Chilel MD PCP - General 10/20/10 04/27/[address] [place] [id number] documented as of this encounter
--- OUTSIDE RECORDS SUMMARY | 2022-10-15 00:15 | XMS_ITS | Encounter Summary ---
:1960 Author Organization [facility] [place] [address] Care Team Providers Name Role Phone Marilou Velasquez APRN Primary Care Provider Reason for Visit Reason Comments Skin Cancer Examination Encounter Details Date Type Department Care Team Description [facility] borrheic [facility]; Cristian MULLER Multiple benign nevi; [address] [facility] Dermatofibroma; [place] [address] [address] Skin irritation [phone] [facility] [place] [place] [place], [place] [address] Social History Tobacco Use Types Packs/Day Years Used Date Smoking Tobacco: Never Smokeless Tobacco: Never Sex Assigned at Date Recorded Not on file documented as of this encounter Progress Notes Azalia Espinosa MD - 07/18/2020 11:15 AM EDT DERMATOLOGY ESTABLISHED PATIENT CLINIC NOTE Date of Service: 07/17/2020 Roxie Morales : 1960 Provider: Azalia Espinosa MD Chief Complaint Patient presents with ??? 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 female, established patient last seen by me on 11/08/2019. Here today for a 1-year full skin exam with the following concerns: - Raised, asymptomatic lesions on face, including right mandible - Rashy area in inframammary, flaring today; treats as needed with OTC Monistat but inquires about alternative treatments Last FSE: 06/28/19 MEDS Current Outpatient Medications Medication Sig Dispense Refill ??? multivitamin (THERAGRAN) Tablet Take 1 tablet by mouth daily. ??? FLUoxetine (PROZAC) 20 mg tablet Take 20 mg by mouth daily. ??? ergocalciferol (VITAMIN D) 50,000 unit capsule No current facility-administered medications for this visit. ADR Allergies Allergen Reactions ??? Penicillins CIS - Rash, CIS - Rash ROS General: Feeling well Skin: Denies other skin complaints EXAM General: NAD, pleasant, cooperative Skin: Patient was asked to undress to the level of her comfort. Verbalized that the provider's preference is for the patient to remove all clothing and that the provider will not examine areas patient elects to keep covered. Patient's decision was to remove bra and underwear for a total body skin exam. This includes examination of the scalp, hair, face, ears, neck, chest, breasts, abdomen, back, axillae, upper and lower extremities, hands, and feet. Buttocks and genitalia were not examined. Buttocksand genitalia were examined with patient's consent. Areas of face under mask examined (COVID-19): [x] Yes [] No Significant Skin Findings: A. Right mandible, left cheek, trunk, and extremities: Low density of brown papules/plaques with waxy, stuck-on appearance. B. Trunk and extremities: Low density of 0.3-0.5 cm medium-brown, evenly- pigmented macules and papules. All with regular pigment pattern on dermoscopy. No pigmented lesions suspicious for melanoma. C. Lower extremities: Firm papule, centrally raised and sclerotic, with peripheral hyperpigmentationand dimpling with lateral pressure. D. Inframammary chest, inner thighs: Erythematous plaques; no maceration. Moist. ASSESSMENT/PLAN A. Low Density Seborrheic Keratoses - Etiology discussed. - Patient reassured that benign in nature. B. Low Density Benign-Appearing Nevi - No atypical lesions or features worrisome for malignancy. - Advised patient to watch for anything new or changing. Discussed changes (bleeding, pain, change in color or shape) that should prompt re-evaluation.?? - Will continue to monitor. C. Dermatofibromas - Discussed benign nature of lesion and provided reassurance. No treatment necessary. D. Hyperhidrosis and intertrigo - Discussed mechanical factors that make the skin environment suspectible to intertrigo. - Instructed patient to keep the area dry. May use a blow-dryer on low setting or grey goods examiner front of fan/AC after bathing. - Instructed to use clinical strength antiperspirant (20% AlCl) in affected areas nightly such as Dove Clinical Strength. - For flares, recommend OTC hydrocortisone 2.5% cream. Follow Up: RTC in 1 year for: [x] FSE [] Follow up [x] Reminder placed in system [] Appointment scheduled before exiting Note initiated by: CHAO Barragan I am documenting this encounter acting as the scribe for and in the presence of Dr. Espinosa: Amanda Esteban I performed the above scribed service and agree with the accuracy of the documentation in this encounter. Azalia Espinosa MD Department of Dermatology [facility] cc: Marilou Velasquez APRN documented in this encounter Plan of Treatment Not on filedocumented as of this encounter Visit Diagnoses Diagnosis Seborrheic keratosis Other seborrheic keratosis Multiple benign nevi Benign neoplasm of skin, site unspecifie d Dermatofibroma Benign neoplasm of skin, site unspecifie d Skin irritation Unspecified disorder of skin and subcuta neous tissue documented in this encounter Care Teams Research Tech Relationship Specialty Start Date End Date Marilou Velasquez APRN PCP - General Family Medicine 04/28/20 [address] [place] [address] documented as of this encounter
--- OUTSIDE RECORDS SUMMARY | 2022-10-15 00:15 | XMS_ITS | Encounter Summary ---
:1960 Author Organization [facility] [address] Care Team Providers Name Role Phone Conrado Chilel MD Primary Care Provider Encounter Details Date Type Department Care Team Description 07/06/2019 Telephone Dermatology at [facility] Azalia Evans MD [address] [facility] [place] [address] [facility] [phone] [place] [address] (Wo rk) Social History Tobacco Use Types Packs/Day Years Used Date Smoking Tobacco: Never Smokeless Tobacco: Never Sex Assigned at Date Recorded Not on file documented as of this encounter Miscellaneous Notes Telephone Encounter - Ana Quiroz - 07/06/2019 2:10 PM EDT I left a voicemail for Roxie Morales requesting a call back to schedule a 3 month spot check. Telephone Encounter - Ana Quiroz - 07/06/2019 2:10 PM EDT ----- Message from Azalia Espinosa MD sent at 06/28/2019 10:53 AM EDT ----- RTC 3 months recheck spot on right arm documented in this encounter Plan of Treatment Not on filedocumented as of this encounter Visit Diagnoses Not on filedocumented in this encounter Care Teams Due Diligence Coordinator Relationship Specialty Start Date End Date Conrado Chilel MD PCP - General 10/20/10 04/27/20 [address] [place] [address] documented as of this encounter
--- OUTSIDE RECORDS SUMMARY | 2022-10-15 00:15 | XMS_ITS | Encounter Summary ---
:1960 Author Organization [facility] [address] Care Team Providers Name Role Phone Marilou Velasquez APRN Primary Care Provider Encounter Details Date Type Department Care Team Description 09/29/2022 Travel Social History Tobacco Use Types Packs/Day Years Used Date Smoking Tobacco: Never Smokeless Tobacco: Never Sex Assigned at Date Recorded Not on file documented as of this encounter Plan of Treatment Not on filedocumented as of this encounter Visit Diagnoses Not on filedocumented in this encounter Care Teams Elevator Runner Relationship Specialty Start Date End Date Marilou Velasquez APRN PCP - General Family Medicine 04/28/20 [address] [place], [place] [id number] documented as of this encounter
--- OUTSIDE RECORDS SUMMARY | 2022-10-15 00:15 | XMS_ITS | Encounter Summary ---
:1960 Author Organization [facility] [place] [address] Care Team Providers Name Role Phone Conrado Chilel MD Primary Care Provider Encounter Details Date Type Department Care Team Description 10/11/2019 [address] [facility] Юлия Ramey, Sensorineural hearing [facility] AUD loss, unilateral, left Drive [facility] ear, with unrestricted [place], [place] [phone] AUDIOLOGY DEPT contralateral side [phone] [place], [place] [address] Social History Tobacco Use Types Packs/Day Years Used Date Smoking Tobacco: Never Smokeless Tobacco: Never Sex Assigned at Date Recorded Not on file documented as of this encounter Progress Notes Юлия Ramey, ALBERT - 10/11/2019 11:15 AM EST AUDIOLOGY Roxie Morales was seen today for a hearing aid check following a hearing re-evaluation. The hearing aid is used for management of unilateral sensorineural hearing loss in the left ear. Hearing thresholds appear to be stable in comparison to hear last audiologic evaluation. Please refer to the audiogram and associated note for details on otologic symptoms and hearing test results. Ana Gama, AuD Can Stacker, was present and assisted with this appointment. I was present throughout the patient's visit Ms. Morales reported the hearing aid is working well and she uses it consistently. She occasionally has some difficulty understanding others and requests repetition, but is uncertain whether it is her hearing or ???her brain?? having difficulty processing the information. Ms. Morales also mentioned that she uses her Speech in Noise program for restaurants and has found that to be helpful for understanding speech in noisier environments. The following actions were taken: ?? The hearing aid was cleaned and a listening check indicated that it was functioning appropriately. ?? Hearing aid responses approximated prescriptive targets for speech without exceeding MPO targets.No changes to hearing aid programming were made. ?? Simulated real ear measures were obtained and function of the directional microphones was verified. ?? Three extra tubes/domes were provided for the hearing instrument RECOMMENDATIONS Annual hearing evaluation and hearing aid check, sooner if concerns arise in the interim. Albert Babb [place] [address] ; HEARING AID(S): HEARING AID RIGHT LEFT Make/Model/Style Phonak Bolero V50 M Casing Color Champagne Serial Number [id number] Battery Size 312 Invoice number / date [id number] 10/13/15 PROGRAM/SETTINGS Fitting Algorithm DSL-Adult Verification Method REM Programs Autosense OS P1= Speech in Noise (less low frequency gain, increased high frequency gain) Disabled Features Other HEARING AID WARRANTY Original Fit Date 10/28/15 Current Status 01/10/18 EARMOLD (if BTE HOANG) Lab Earmold / Slim tube / EMILEE specifics Length 2 thin-tube/ medium closed dome Impression Date Invoice # ACCESSORIES Make/Model Color Serial Number Warranty date Invoice number/date documented in this encounter Plan of Treatment Not on filedocumented as of this encounter Visit Diagnoses Diagnosis Sensorineural hearing loss, unilateral, left ear, with unrestricted hearing on the contralateral side documented in this encounter Care Teams Repairer Resistance Welding Machines Relationship Specialty Start Date End Date Conrado Chilel MD PCP - General 10/20/10 04/27/20 [address] [place] [address] documented as of this encounter
--- OUTSIDE RECORDS SUMMARY | 2022-10-15 00:15 | XMS_ITS | Encounter Summary ---
:1960 Author Organization [facility] [place] [address] Care Team Providers Name Role Phone Conrado Chilel MD Primary Care Provider Encounter Details Date Type Department Care Team Description 10/11/2019 Office Visit Audiology at [facility] Seble Paulson Sensorineural hearing [facility] loss ([facility] L) of left ear [place] [address] of right ear [phone] Social History Tobacco Use Types Packs/Day Years Used Date Smoking Tobacco: Never Smokeless Tobacco: Never Sex Assigned at Date Recorded Not on file documented as of this encounter Progress Notes Seble Paulson - 10/11/2019 10:15 AM EST AUDIOLOGIC EVALUATION Roxie Morales was seen on 10/11/2019 for an audiologic evaluation in conjunction with Liss Babb for amplification management. Please refer to the audiogram located under the Procedurestab in the medical record for findings, impressions, and recommendations. Ruth Chaudhary. [place] [address] This case was discussed at the time of the visit or immediately afterwards. I have reviewed the history, assessment and plan with the Audiology Doctoral Post Hole Digger named above and concur with the findings.I was not present during this visit. Paulette Pierce MS, CCC-A Clinical Coordinator, Adult Audiology Program [place] [phone] (fax) documented in this encounter Plan of Treatment Not on filedocumented as of this encounter Procedures Procedure Name Priority Date/Time Associated Comments Diagnosis COMPREHENSIVE HEARING Routine 10/11/2019 10:26 Re sults for this TEST AM EST procedure are i n the results section. documented in this encounter Results Comprehensive hearing test (10/11/2019 10:26 AM EST) Specimen (Source) Anatomical Collection Method Collection Time Re ceived Time Location / / Volume Laterality 10/11/2019 10:26 AM EST Narrative AUD[facility] COMP - 10/11/2019 10:26 AM EST Follow-up with Liss Babb for amplification management (appointment today). Annual hearing test to monitor hearing t hresholds. Hearing protection in the presence of alas zardous noise levels. Good communication strategies in challen ging listening environments. Procedure Note Unknown - 10/11/2019Formatting of this n ote might be different from the original. Follow-up with Liss Babb for a mplification management (appointment today). Annual hearing test to monitor hearing t hresholds. Hearing protection in the presence of alas zardous noise levels. Good communication strategies in challen ging listening environments. Unknown AUDIOLOGY SERVICES ORDERABLE S Performing Organization Address City/State/ZIP Code Phon e Number AUD[facility] COMP documented in this encounter Visit Diagnoses Diagnosis Sensorineural hearing loss (SNHL) of lef t ear with unrestricted hearing of right ear documented in this encounter Care Teams Tricot Knitting Machine Operator Relationship Specialty Start Date End Date Conrado Chilel MD PCP - General 10/20/10 04/27/20 [address] [place] [address] documented as of this encounter
--- OUTSIDE RECORDS SUMMARY | 2022-10-15 00:15 | XMS_ITS | Encounter Summary ---
:1960 Author Organization [facility] [place] [address] Care Team Providers Name Role Phone RonMarilou YOANDY Primary Care Provider Encounter Details Date Type Department Care Team Description 02/27/2021 Telephone Otolaryngology at [facility] Tara Hernandez, [place] [address] Social History Tobacco Use Types Packs/Day Years Used Date Smoking Tobacco: Never Smokeless Tobacco: Never Sex Assigned at Date Recorded Not on file documented as of this encounter Miscellaneous Notes Telephone Encounter - Tara Hernandez RN - 02/27/2021 4:07 PM EDT Patient's call returned. Patient states right ear feels blocked, like the left one did when I came in for my appointment last June. Patient is wondering if it's the eustachian tube. Patient statesshe's tried fluticasone, henny, and afrin without relief. After discussion with GEORGETTE José he'dlike patient to come in with AE and appointment. Patient refuses this recommendation and states whenshe saw GEORGETTE José in 06/2020, Dr. Anaya had also seen her and recommended another medication, I think it was a steroid. Offered to speak with Dr. Anaya. Patient will hold off for now and pursue an allergy referral. documented in this encounter Plan of Treatment Not on filedocumented as of this encounter Visit Diagnoses Not on filedocumented in this encounter Care Teams Tie Tamper Relationship Specialty Start Date End Date Marilou Velasquez APRN PCP - General Family Medicine 04/28/20 [address] [place] [address] documented as of this encounter
--- OUTSIDE RECORDS SUMMARY | 2022-10-15 00:15 | XMS_ITS | Encounter Summary ---
:1960 Author Organization [facility] [place] [address] Care Team Providers Name Role Phone Conrado Chilel MD Primary Care Provider Reason for Visit Reason Comments Hearing Loss Encounter Details Date Type Department Care Team Description 11/07/2017 Office [address] Audiology at [facility] Carmen Ashford Unilateral [facility] sensorine [place] [address] Social History Tobacco Use Types Packs/Day Years Used Date Smoking Tobacco: Never Smokeless Tobacco: Never Sex Assigned at Date Recorded Not on file documented as of this encounter Progress Notes Carmen Lepe - 11/07/2017 3:30 PM EST AUDIOLOGIC EVALUATION Roxie Morales was seen on 11/07/2017 for an audiologic evaluation. Please refer to the scanned audiogram listed under Procedures for findings, impressions and recommendations. Carmen Arana, ELIZABETH Audiology [place] [address] ; Please do not hesitate to contact this Section at [phone] if there are questions regarding thisreport or its recommendations. I have reviewed this case and concur with the findings. Kike Babb [place] [address] ; documented in this encounter Plan of Treatment Not on filedocumented as of this encounter Procedures Procedure Name Priority Date/Time Associated Comments Diagnosis COMPREHENSIVE HEARING Routine 11/07/2017 3:32 PM Results for this TEST EST procedure are i n the results section. documented in this encounter Results Comprehensive hearing test (11/07/2017 3:32 PM EST) Specimen (Source) Anatomical Collection Method Collection Time Re ceived Time Location / / Volume Laterality 11/07/2017 3:32 PM EST Narrative [facility] - 11/07/2017 3:32 PM EST - Follow up with Kike Babb for amplification management. - Re-eval of hearing in one year or soon er if new concerns arise. - Hearing conservation - use hearing pro tection in excessive noise. - Use of communication strategies given hearing difficulties. Procedure Note Unknown - 11/07/2017Formatting of this n ote might be different from the original. - Follow up with Kike Babb for a mplification management. - Re-eval of hearing in one year or soon er if new concerns arise. - Hearing conservation - use hearing pro tection in excessive noise. - Use of communication strategies given hearing difficulties. Unknown AUDIOLOGY SERVICES ORDERABLE S Performing Organization Address City/State/ZIP Code Phon e Number [facility] documented in this encounter Visit Diagnoses Diagnosis Unilateral sensorineural hearing loss Sensorineural hearing loss, unilateral documented in this encounter Care Teams Type Soldering Machine Tender Relationship Specialty Start Date End Date Conrado Chilel MD PCP - General 10/20/10 04/27/20 [address] [place] [address] documented as of this encounter
--- OUTSIDE RECORDS SUMMARY | 2022-10-15 00:15 | XMS_ITS | Encounter Summary ---
:1960 Author Organization [facility] [place] [address] Care Team Providers Name Role Phone Conrado Chilel MD Primary Care Provider Reason for Visit Reason Onset Date Comments Appointment 07/09/2019 Encounter Details Date Type Department Care Team Description 07/09/2019 Telephone Dermatology at [facility] Dorota Taylor Appointment [address] [place] [address] Social History Tobacco Use Types Packs/Day Years Used Date Smoking Tobacco: Never Smokeless Tobacco: Never Sex Assigned at Date Recorded Not on file documented as of this encounter Miscellaneous Notes Telephone Encounter - Dorota Taylor - 07/09/2019 12:00 PM EDT Caller and relationship to patient (if other than patient): Evonne Best time to reach caller: any Message or Reason for Call: Evonne returned nAa's call from last week to schedule a 2 month follow up with Dr. Espinosa Appt Needed and Reason: yes, Provider: Dr. Espinosa documented in this encounter Plan of Treatment Not on filedocumented as of this encounter Visit Diagnoses Not on filedocumented in this encounter Care Teams Manager Tax Relationship Specialty Start Date End Date Conrado Chilel MD PCP - General 10/20/10 04/27/20 [address] [place] [address] documented as of this encounter
--- OUTSIDE RECORDS SUMMARY | 2022-10-15 00:15 | XMS_ITS | Encounter Summary ---
:1960 Author Organization [facility] [place] [address] Care Team Providers Name Role Phone Marilou Velasquez APRN Primary Care Provider Encounter Details Date Type Department Care Team Description 09/29/2022 [facility] Flip eborrheic keratoses; Road Fuentes angioma; [address] [facility] Lentigines; [place] [address] [address] Trevizo's contracture; [phone] [facility]-DERMATOLOGY [place], [place] [address] Social History Tobacco Use Types Packs/Day Years Used Date Smoking Tobacco: Never Smokeless Tobacco: Never Sex Assigned at Date Recorded Not on file documented as of this encounter Progress Notes Azalia Blancas MD - 09/29/2022 8:30 AM EDT Images from the original note were not included. DEPARTMENT OF DERMATOLOGY Medical Dermatology Clinic Provider: Azalia Blancas MD Patient's preferred name Caty Preferred contact method for results [x]?Phone [x]?myD-H []?Letter Detailed phone message OK? Yes Are there any other people with whom we may discuss your care? Yes ( Fidel) ?? 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 Pre-Procedure Questions Details Allergy to lidocaine, epinephrine, Dermabond, chlorhexidine, or adhesives N Bleeding disorder or blood thinners N Pacemaker, defibrillator, deep brain stimulator, cochlear implant N History of Present Illness: Roxie Morales is a 62 y.o. Patient returns to clinic today for a full skin cancer screening: - Left hinduism, lesion getting larger. Not bothersome to patient. - 2 raised lesions on right cheek and right shoulder x1. Patient denies of itch and pain from these spots. - Hx of irritation below the breasts. Patient uses Lotrimin and antifungal powder. Last visit at Dermatology: 06/08/2022 Last visit with this provider: 09/11/2021 Medications: Reviewed in eD-H Allergies: Reviewed in [...] with the exception of thefindings below. Assessment/Plan #. Seborrheic Keratoses - Stuck on, waxy papules on the face, trunk and extremities. - Discussed benign nature of lesions and provided reassurance. No treatment necessary at this time. #. Fuentes Angiomas - Multiple bright red, well-demarcated papules on the trunk and extremities. - Discussed benign nature of lesions and provided reassurance. No treatment necessary at this time. #. Lentigines - Scattered light-brown, evenly pigmented, well-demarcated macules on sun-exposed areas of the trunk and extremities. - No worrisome pigmented lesions. Discussed benign nature of lesions and provided reassurance. Will continue to monitor. #. Dupuytren's Contracture - erythematous nodules on L palm over tendons - F/u with PCP to see if would recommend treating #. Intertrigo - Erythema on the inframammary area. Improved per pt - Explained that condition is a result of repeated rubbing of skin folds in the setting of moisture. - Can continue OTC Lotrimin and Nystatin Powder to apply to the affected areas as needed. # Melanocytic Nevi- 2-6mm brown macules on trunk and extremities with reassuring pigment pattern on dermoscopy - Discussed benign appearing nevi based on today's exam - Recommended follow-up with dermatology if any changes in any pigmented lesions are noted or any concerns regarding new lesions arise. Other: ??? Sun protection discussed (protective clothing and SPF30+ broad-spectrum sunscreen) RTC: 1 year FSE, Hx of AK's. Return sooner as needed []Note routed to payroll secretary [x]Recall placed in scheduling system []Appointment scheduled at checkout Scribe attestation: Denisse Meléndez [facility] has performed the documentation for this encounter in the presence of and acting as a scribe for Azalia Blancas MD. I performed the above scribed service and agree with the accuracy of the documentation in this encounter. Reviewed and signed by: Azalia Blancas MD Dermatology [facility] documented in this encounter Plan of Treatment Not on filedocumented as of this encounter Visit Diagnoses Diagnosis Seborrheic keratoses Fuentes angioma Nevus, non-neoplastic Lentigines Other dyschromia Dupuytren's contracture Contracture of palmar fascia Intertrigo Other specified erythematous condition documented in this encounter Care Teams Recruiting Team Lead Relationship Specialty Start Date End Date Marilou Velasquez APRN PCP - General Family Medicine 04/28/20 [address] [place] [address] documented as of this encounter
--- OUTSIDE RECORDS SUMMARY | 2022-10-15 00:15 | XMS_ITS | Encounter Summary ---
:1960 Author Organization [facility] [place] [address] Care Team Providers Name Role Phone Conrado Chilel MD Primary Care Provider Reason for Visit Reason Comments Skin Check FSE Encounter Details Date Type Department Care Team Description 06/28/2019 Office Visit Dermatology at [facility], Azalia Kaplan, De rmatofibroma; Cristian MULLER Seborrheic keratosis; [address] [facility] Seborrheic dermatitis of sca [place]; [place] [address] [address] [place] (actinic keratosis); [phone] [facility] Tinea corporis -DERMATOLOGY [place], [place] [address] Social History Tobacco Use Types Packs/Day Years Used Date Smoking Tobacco: Never Smokeless Tobacco: Never Sex Assigned at Date Recorded Not on file documented as of this encounter Patient Instructions Patient InstructionsBea Dunlap CCMA - 06/28/2019 8:00 AM EDT Images from the original note were not included. Seborrheic Dermatitis Diagnosis: Seborrheic dermatitis is a red, scaly, itchy rash, most commonly seen on the scalp, eyebrows, eyelids, behind the ears, sides of the nose, and middle of the chest. Treatment instructions: 1. Massage abld-zlv-ndokdnu anti-dandruff shampoo onto affected area. (recommend medicated head and shoulders shampoo) 2. Leave on for 5-10 minutes. 3. Rinse. 4. If treating the scalp, follow with regular shampoo and conditioner. 5. Alternate with leave in product (photo below) every other day. Contact information: On weekdays (8am to 5pm), please call the clinic at [phone]. After 5pm, and on weekends and holidays, please call the hospital at [phone] and ask for the Nursing Unit Clerk Account Developer. documented in this encounter Progress Notes Azalia Espinosa MD - 06/28/2019 8:00 AM EDT DERMATOLOGY ESTABLISHED PATIENT CLINIC NOTE Date of service: 06/28/2019 Roxie Morales : 1960 Provider: Azalia sEpinosa MD Chief Complaint Patient presents with ??? Skin Check FSE Skin History: Actinic keratosis Seborrheic dermatitis No history of skin cancer Family History: No family history of melanoma Father- BCC No family history of atopy, psoriasis or other skin disease ?? 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 ?? PATIENT PREFERENCES Preferred name: Caty Preferred contact method with results: home phone Detailed message including biopsy results okay?: yes HPI Roxie Morales is a 58 y.o. year old female. Here for full skin exam. No personal history of skin cancer. Concerned about scaly brown lesions on her right lower cheek, present for less than a year.No attempted treatments. Also has a rash of her left tricep 5-6 weeks ago. The size and shape of the rash has remained consistent. She does not recall a tick bite. No previous tx. Intermittently itchy. Has a hx of seborrheic dermatitis on her scalp, not on any strict regimen, she limits her hair washing to a few times a week. ADR: Allergies Allergen Reactions ??? Penicillins CIS - Rash, CIS - Rash MEDS: Current Outpatient Medications Medication Sig Dispense Refill ??? ESTRING 2 [...] complaints EXAM General: NAD, pleasant, cooperative Skin: Significant skin findings: A. Trunk, face, and extremities: Scattered 0.4-0.6 cm pink-brown papules/plaques with waxy stuck-on appearance. B. Scalp: Diffuse greasy, loosely adherent, scale throughout scalp C. Right thigh: firm papule, centrally raised and sclerotic, with peripheral hyperpigmentation and dimpling with lateral pressure. D. Left tricep: 2 cm slightly scaly annular thin plaque ; KIEL negative for fungal elements ASSESSMENT/PLAN: A. Seborrheic keratosis. Patient reassured B. Seborrheic Dermatitis - Discussed etiology and therapeutic options. - Recommended using OTC anti-dandruff shampoo (Head and Shoulders) several times weekly. Advised lathering it on and letting it sit for 5 minutes before rinsing. Advised to alternate daily with leave in foam C. Dermatofibroma Patient reassured of benign nature. Discussed that it can arise from trauma. D. Tinea corporis (KIEL negative today for fungal elements) vs evolving SK vs granuloma annulare Discussed it is unlikely a tick bite. DDx includes evolving seborrheic keratosis. She was advised toreturn to clinic with any change in symptoms or appearance. RTC 3 months to recheck FOLLOW UP: 1 year for full skin exam, or sooner if needed. Appt reminder entered in the system. I am documenting this encounter acting as the scribe for and in the presence of Dr. Espinosa.: Bea Dunlap [facility] I performed the above scribed service and agree with the accuracy of the documentation in this encounter. Azalia Espinosa MD Section of Dermatology [facility] documented in this encounter Plan of Treatment Not on filedocumented as of this encounter Visit Diagnoses Diagnosis Dermatofibroma Benign neoplasm of skin, site unspecifie d Seborrheic keratosis Other seborrheic keratosis Seborrheic dermatitis of scalp Other seborrheic dermatitis AK (actinic keratosis) Actinic keratosis Tinea corporis Dermatophytosis of the body documented in this encounter Care Teams Metal Shaping Machine Operator Relationship Specialty Start Date End Date Conrado Chilel MD PCP - General 10/20/10 04/27/20 [address] [place] [address] documented as of this encounter
--- OUTSIDE RECORDS SUMMARY | 2022-10-15 00:15 | XMS_ITS | Encounter Summary ---
:1960 Author Organization [facility] [place] [address] Care Team Providers Name Role Phone Marilou Velasquez YOANDY Primary Care Provider Reason for Visit Reason Comments Skin Lesion Encounter Details Date Type Department Care Team Description 06/08/2022 Office Visit Dermatology at [facility], Neoplasm of Road unspecified behavior [address] [facility] [place] [address] [address] and skin [phone] DERMATOLOGY [place] [address] Social History Tobacco Use Types Packs/Day Years Used Date Smoking Tobacco: Never Smokeless Tobacco: Never Sex Assigned at Date Recorded Not on file documented as of this encounter Progress Notes Virgie Cornejo MD - 06/08/2022 10:30 AM EDT Images from the original note were not included. DEPARTMENT OF DERMATOLOGY Medical Dermatology Clinic Provider: Virgie Cornejo MD Patient's preferred name Caty Preferred contact method for results [x]Phone [x]myD-H []Letter Detailed phone message OK? Yes Are there any other people with whom we may discuss your care? 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 Patient returns to clinic today for spotof concern on chest. -Raised spot on the right chest that it has been there for 4-6 months. Patient stated that it sometimes gets red around the edges. It is very bothersome because of the location. No bleeding or itching.Non tender. Last visit at Dermatology: 09/11/2021 Medications: Reviewed in eD-H Allergies: Reviewed in eD-H Skin Examination: Focused skin examination of the right chest was normal with the exception of the findings below. Assessment/Plan: #. Wart vs SK vs SCC - 6 mm verrucous papule on the right chest (Figure 1). - Recommended a skin biopsy to confirm/clarify the nature of the skin lesion. After discussion of potential risks (scarring, bleeding, infection) and recurrence, patient agreed to proceed. - Patient denies known allergies to lidocaine and epinephrine. Procedure: Skin shave biopsy Location: right chest Discussed indications for procedure and expectations including risks and benefits. Verbal consent obtained. Time out performed. Skin prepped with alcohol. Local anesthesia with 1% xylocaine, 1/100,000 epinephrine. A sample of the lesion was removed by shave technique to the level of the dermis and subm itted to Pathology. Hemostasis obtained (AlCl). There were no complications; patient tolerated the procedure well. Wound dressed. Post-procedure expectations, wound care and activity restrictions reviewed. - Follow-up based on pathology results. Figure 1 Photo(s) taken and charted with patient's verbal consent. Other: ??? N/A RTC: Pending pathology and August 2022 for FSE []Note routed to medical file clerk []Recall placed in scheduling system [x]Appointment scheduled at checkout Scribe attestation: Dina Campbell performed the documentation for this encounter in the presence ofand acting as a scribe for Clemente Garvin MD. I performed the above scribed service and agree with the accuracy of the documentation in this encounter. Reviewed and signed by: Virgie Cornejo MD Dermatology [facility] documented in this encounter Plan of Treatment Not on filedocumented as of this encounter Procedures Procedure Name Priority Date/Time Associated Diagnosis Comme nts SURGICAL PATHOLOGY Routine 06/08/2022 10:59 AM Re sults for this REPORT EDT procedure are i n the results section. SPECIMEN TO Routine 06/08/2022 10:59 AM Neoplasm of Results for this PATHOLOGY EDT unspecified behavior procedu re are in of bone, soft the results tissue, and skin section. documented in this encounter Results Surgical Pathology Report (06/08/2022 10:59 AM EDT) Component Value Ref Test Analysis Performed At [facility] [place] Method Time Signature Surgical [id number] ? Location: [facility] Report The signing pathologist has (i) examined the relevant preparation(s) for the [facility] specimen(s) and (ii) rendered or confirmed the diagnosis(es) . HOSPITAL LABORATORY . ?Surgic al Pathology DIAGNOSIS Right chest, skin shave biopsy: - ??Verrucous keratosis, irritated and inflamed Electronically signed by: ?Blanca MULLER, Ami Verified: ??06/10/2022 12:12 ??Dermatopathologist Performed at: ??-[facility] Dept. of Pathology, [place], [place] SPECIMEN(S) SUBMITTED A - right chest, skin shave biopsy (1) CLINICAL INFORMATION Wart vs SK vs SCC. 6 mm verrucous papule SPECIMEN PROCESSING A - Labeled/Fixative: Right chest, formalin. Quantity/Size: ??Single, 0.7 x 0.6 x 0.4 cm. Tissue Description: Granular, friable pink-white papule. Sections/Processing: Inked, trisected and entirely submitted in 1 cassette labele d A1. ??pps Specimen (Source) Anatomical Collection Method Collection Time Re ceived Time Location / / Volume Laterality 06/08/2022 10:59 AM EDT Virgie Cornejo MD PATHOLOGY/CYTOLOGY ORDERABLE S Performing Organization Address City/[facility]/[place] [address] Specimen to Pathology (06/08/2022 10:59 AM EDT) Specimen Anatomical Collection Method Collection Time Receive d Time (Source) Location / / Volume Laterality AP Specimen 06/08/2022 10:59 06/08/2022 AM EDT 10:59 AM EDT Narrative [facility] - 06/08/2022 10:59 AM EDT Specimen requisition ordered. ??Separate Pathology report to follow Virgie Cornejo MD PATHOLOGY/CYTOLOGY ORDERABLE S Performing Organization Address City/[facility]/[place] [address] documented in this encounter Visit Diagnoses Diagnosis Neoplasm of unspecified behavior of bone , soft tissue, and skin documented in this encounter Care Teams Radiologic Therapist Relationship Specialty Start Date End Date Marilou Velasquez APRN PCP - General Family Medicine 04/28/20 [address] [place] [address] documented as of this encounter
--- OUTSIDE RECORDS SUMMARY | 2022-10-15 00:15 | XMS_ITS | Encounter Summary ---
:1960 Author Organization [facility] [place] [address] Care Team Providers Name Role Phone Conrado Chilel MD Primary Care Provider Encounter Details Date Type Department Care Team Description 11/07/2017 Office Visit Audiology at [facility] Юлия aRmey, Fitting and adjustment [facility] [place] [address] AUDIOLOGY DEPT [phone] [place], [place] [address] Social History Tobacco Use Types Packs/Day Years Used Date Smoking Tobacco: Never Smokeless Tobacco: Never Sex Assigned at Date Recorded Not on file documented as of this encounter Progress Notes Юлия Ramey, AUD - 11/07/2017 4:45 PM EST AUDIOLOGY Roxie Morales was seen today for a hearing aid check following a hearing re-evaluation. Please refer to the audiogram and associated note for details on otologic symptoms and hearing test results.Ms. Morales reported the hearing aid is working well and she uses it consistently. The following actions were taken: ?? The hearing aid was cleaned and a listening check indicated that it was functioning appropriately. ?? Hearing aid responses approximated prescriptive targets for speech without exceeding MPO targets.No significant changes to hearing aid programming were made. Simulated real ear measures were obtained and function of the directional microphones was verified. Three extra tubes/domes were provided for the hearing instrument RECOMMENDATIONS Annual hearing evaluation and hearing aid check, sooner if concerns arise in the interim. Kike Babb [place] [address] ; HEARING AID(S): HEARING AID RIGHT LEFT Make/Model/Style ? Diego Gracia V50 M Casing Color ? [facility] Serial Number ? [id number] Battery Size ? 312 Invoice number / date ? [id number] 10/13/15 PROGRAM/SETTINGS ? Fitting Algorithm ? DSL-Adult Verification Method ? REM Programs ? Autosense OS P1= Speech in Noise (less low frequency gain, increased high frequency gain) Disabled Features ? Other ? HEARING AID WARRANTY ? Original Fit Date ? 10/28/15 Current Status ? 01/10/18 EARMOLD (if BTE HOANG) ? Lab ? Earmold / Slim tube / EMILEE specifics ? Length 2 thin-tube/ medium closed dome Impression Date ? Invoice # ? ACCESSORIES ? Make/Model ? Color ? Serial Number ? Warranty date ? Invoice number/date ? documented in this encounter Plan of Treatment Not on filedocumented as of this encounter Visit Diagnoses Diagnosis Fitting and adjustment of hearing aid documented in this encounter Care Teams Emergency Department Director Relationship Specialty Start Date End Date Conrado Chilel MD PCP - General 10/20/10 04/27/20 [address] [place] [address] documented as of this encounter
--- OUTSIDE RECORDS SUMMARY | 2022-10-15 00:15 | XMS_ITS | Clinical Summary ---
:1960 Author Organization [facility] [place] [address] Care Team Providers Name Role Phone Marilou Velasquez YOANDY Primary Care Provider Allergies Active Allergy Reactions Severity Noted Date Comments Penicillins Medium CIS - Rash, CIS - Rash Medications Medication Sig Dispensed Refills Start Date End Date Status ergocalciferol (VITAMIN 0 01/01/2011 Active D) 50,000 unit capsule FLUoxetine (PROZAC) 20 Take 20 mg by 0 Active mg tablet mouth daily. multivitamin (THERAGRAN) Take 1 tablet by 0 Active Tablet mouth daily. fexofenadine/pseudoephed Take 1 tablet by 0 Active rine (JERRY-D 24 HOUR mouth daily. ORAL) triamcinolone (NASACORT 2 sprays by 0 Active or NASACORT OTC) 55 mcg Nasal route Aerosol, [place] daily. Active Problems Problem Noted Date CHL (conductive hearing loss) 07/27/2012 Pulsatile tinnitus 07/27/2012 Encounters Date Type Specialty Care Team Description 09/29/2022 Office Visit Dermatology Azalia Blancas MD Seborrh eic keratoses; Fuentes angioma; Lentigines; Dupuytren's con tracture; Intertrigo 09/29/2022 Travel from Last 3 Months Social History Tobacco Use Types Packs/Day Years Used Date Smoking Tobacco: Never Smokeless Tobacco: Never Sex Assigned at Date Recorded Not on file Last Filed Vital Signs Vital Sign Reading [...] Mass Index 32.56 07/18/2020 8:57 AM EDT Plan of Treatment Health Maintenance Due Date Last Done Comments Covid-19 Vaccine (#1) 02/12/1961 HIV screen 1976 Hepatitis C Screening 1976 Lipid Screening 1976 Tdap adult 1977 Tetanus vaccine 1977 HPV test 1988 PAP Smear 1988 Breast Cancer Share Decision Needed 1998 Diabetes Screening (HgbA1C or Glucose) 1998 Colonoscopy 2003 Breast Cancer screening 2008 Zoster vaccine (1 of 2) 2008 Advance Directive 2013 Influenza (Flu) vaccine (1 of 1 - Influenza standard 07/29/2022 series) Insurance Payer Benefit Plan Subscriber ID Effective Dates Phone Address Type / Group [facility] [id number] 2019-Sachi [phone] [address] [facility] t [address] [facility] [id number] Care Teams Personal Fitness Manager Relationship Specialty Start Date End Date Marilou Velasquez APRN PCP - General Family Medicine 04/28/20 [address] [place], [place] [address]
--- OUTSIDE RECORDS SUMMARY | 2022-10-15 00:16 | XMS_ITS | Encounter Summary ---
:1960 Author Organization [facility] [place] [address] Care Team Providers Name Role Phone Conrado Chilel MD Primary Care Provider Reason for Visit Reason Comments Skin Check Encounter Details Date Type Department Care Team Description 05/19/2016 Office Visit Dermatology at Do janet Meza MD [facility] [address] [place] [address] Seborrheic keratosis; Bree Bee PA [facility] [address] [place] [address] Dermatofibroma; [address] Fuentes angioma; [place] [address] Bug bite [phone] Social History Tobacco Use Types Packs/Day Years Used Date Smoking Tobacco: Never Smokeless Tobacco: Never Sex Assigned at Date Recorded Not on file documented as of this encounter Progress Notes Lisette Appiah MD - 05/19/2016 4:35 PM EDT Benign skin exam including DF, SKs, fuentes angiomas. No worrisome pigmented or cancerous lesions. Patient seen in conjunction with Bree Mosher PA-C (Bri) Signed by: LISETTE APPIAH MD Section of Dermatology [facility] Bree Mosher PA - 05/19/2016 3:16 PM EDT DERMATOLOGY - ESTABLISHED PATIENT CLINIC NOTE Date of service: 05/19/2016 Roxie Morales : 1960 Dermatology Physician Therapeutic Specialist Note: Bree Mosher PA-C (Bri) Chief Complaint Patient presents with ??? Skin Check This is an established patient, last seen by myself on 04/16/2015 for a full skin exam. HPI: Roxie Morales presents for a full skin exam. Ms. Morales states that she has been doing well; does not believe as though there have been any skin changes. No personal history of skin cancer; fatherwith NMSC. Patient is otherwise doing well and has no other skin concerns today. 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 [...] with patient consent. Genitalia were not examined. Bo Skin Type: 2 Specific skin findings: 1. Scattered on the trunk and extremities: Multiple 0.2-0.4cm bright red, well- demarcated papules 2. Scattered on the trunk and extremities: Warty stuck on papules 3. Chest: Scattered pink edematous papules 4. Right thigh, right arm: Firm papules, centrally raised and sclerotic, with peripheral hyperpigmentation and dimpling with lateral pressure. Diagnosis/Assessment/Treatment Plan: 1. Fuentes angioma - Etiology discussed - Patient reassured lesions are benign in nature 2. Seborrheic keratosis - Etiology discussed - Patient reassured lesions are benign in nature 3. Multiple bug bites - Reassured benign 4. Dermatofibroma - Etiology discussed - Patient reassured lesions are benign in nature - No intervention warranted LOS: [id number] RTC in 1 year skin exam, sooner if needed. Instructed to call with questions/concerns. Patient verbally expressed understanding. I specifically asked the patient at the end of the visit if there were any further concerns or questions and the patient verbally stated there were no other concerns or questions. All questions were answered and all concerns were addressed. I have granted patient's request that this note be sent to PCP. Note initiated by KLEBER WILKERSON, Clinical scribe: I am documenting this encounter acting as the scribe for and in the presence of Bree Mosher PA-C (Bri) I performed the above scribed service and agree with the accuracy of the documentation in this encounter. Reviewed and signed by Bree Mosher PA-C (Bri) Dermatology [facility] Patient seen in conjunction with staff physician: Lisette Appiah MD Section of Dermatology [facility] documented in this encounter Plan of Treatment Not on filedocumented as of this encounter Visit Diagnoses Diagnosis Seborrheic keratosis Other seborrheic keratosis Dermatofibroma Benign neoplasm of skin, site unspecifie d Fuentes angioma Nevus, non-neoplastic Bug bite Other, multiple, and unspecified sites, insect bite, nonvenomous, without mention of infection documented in this encounter Care Teams Boom Man Relationship Specialty Start Date End Date Conrado Chilel MD PCP - General 10/20/10 04/27/20 [address] [place] [address] documented as of this encounter
--- OUTSIDE RECORDS SUMMARY | 2022-10-15 00:16 | XMS_ITS | Encounter Summary ---
:1960 Author Organization [place] [address] Care Team Providers Name Role Phone Conrado Chilel MD Primary Care Provider Encounter Details Date Type Department Care Team Description 11/23/2011 Follow-Up Audiology at [facility] Lolis Pierce Tinnitus (Primary Dx); [facility] MS Anupama Normal hearing exam; [facility] Conductive hearing loss, [place] [address] AUDIOLOGY DEPT [place], [place] [address] (Wo rk) Social History Tobacco Use Types Packs/Day Years Used Date Smoking Tobacco: Never Smokeless Tobacco: Never Sex Assigned at Date Recorded Not on file documented as of this encounter Progress Notes Lolis Pierce MS - 11/23/2011 3:56 PM EST AUDIOLOGY SECTION Roxie Morales, age 51 years, was seen on 11/23/2011 for an audiologic evaluation in conjunctionwith Sarabjit Anaya MD. Please refer to the scanned audiogram in the electronic medical record for findings, impressions and recommendations. Paulette Pierce MS, [facility] [place] [address] [phone] (fax) documented in this encounter Plan of Treatment Not on filedocumented as of this encounter Visit Diagnoses Diagnosis Tinnitus - Primary Unspecified tinnitus Normal hearing exam Reserved for inherently not codable conc epts WITHOUT codable children Conductive hearing loss, unilateral documented in this encounter Care Teams Press Tool Maker Relationship Specialty Start Date End Date Conrado Chilel MD PCP - General 10/20/10 04/27/20 [address] [place] [address] documented as of this encounter
--- OUTSIDE RECORDS SUMMARY | 2022-10-15 00:16 | XMS_ITS | Encounter Summary ---
:1960 Author Organization [facility] [place] [address] Care Team Providers Name Role Phone Conrado Chilel MD Primary Care Provider Reason for Visit Reason Comments Skin Check Encounter Details Date Type Department Care Team Description 04/16/2015 Office Visit Dermatology at Bree L[facility]ep[facility] rmatoforrest; GEORGETTE Perkins Multiple benign nevi; [address] [facility] Seborrheic keratosis, inflam ed; [place] [address] [address] Actinic keratosis [phone] [facility]-DERMATOLOGY [place], [place] [address] Social History Tobacco Use Types Packs/Day Years Used Date Smoking Tobacco: Never Smokeless Tobacco: Never Sex Assigned at Date Recorded Not on file documented as of this encounter Progress Notes Azalia Espinosa MD - 04/16/2015 1:06 PM EDT Agree with treatment with LN2 Patient seen in conjunction with Bree Mosher PA-C (Bri) Signed by: Azalia Espinosa MD Section of Dermatology [facility] Bree Mosher PA - 04/16/2015 8:44 AM EDT Images from the original note were not included. DERMATOLOGY - NEW PATIENT CONSULT NOTE Date of service: 04/16/2015 Roxie Morales : 1960 Dermatology Physician Processing Mgr Note: Bree Mosher PA-C (Bri) Chief Complaint Patient presents with ??? Skin Check Roxie Morales is a 54 y.o. female. This is a new patient to me and to the clinic. Seen in consultation at the request of CONRADO CHILEL MD specifically for the evaluation and management of the above problem. HPI: Ms. Morales presents for a full skin exam. She has a new spot on her left forehead that appeared a few months ago and has been slowly growing. Denies bleeding or tenderness of this spot, but it concerning to her as it has grown. She several spots scattered over her body that are new in the past severalyears but none has bled, itched or changed. She protects her skin from the sun with sunscreen SPF 30. She has never used a tanning bed but did have a couple of blistering sunburns as a child. Past Skin History: No personal history of skin cancer or skin diseases Medical History: Patient Active Problem List Diagnosis Code ??? CHL (conductive hearing loss) 389.00 ??? Pulsatile tinnitus 388.30 Medications: Current Outpatient Prescriptions on File Prior to Visit Medication Sig Dispense Refill ??? FLUoxetine (PROZAC) 20 mg tablet Take 20 mg by mouth daily. ??? CIS Free Text Med - Multivite\E\ ??? Calcium Carbonate (TUMS) 300 mg (750 mg) Chew ??? ergocalciferol (VITAMIN D) 50,000 unit capsule ??? Bushnell-3 Fatty Acids-Fish Oil (ONE-PER-DAY OMEGA-3) 684-1,200 mg CpDR No current facility-administered medications on file prior to visit. Allergies: Allergies Allergen Reactions ??? 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 Skin: A full skin examination was performed. This includes the head, neck, face and scalp including behind the ears. The chest, abdomen, back, and axillae, as well as the arms, hands, palms, fingers. Legs, feet, toes and soles were also examined. Buttocks and breasts were also examined with patient consent. Genitalia were not examined. Bo Skin Type: Specific skin findings: 1. Left forehead - 4 mm symmetrical light pink scaly papule, irritated by washing face 2. Multiple 0.4-0.6cm brown papules with waxy, stuck-on appearance on her right central back x 1, right abdomen x 1, left flank x 2. Milia-like cysts, comedone- like openings and/or fissuring on dermoscopy. 3. Multiple 0.2-0.4cm bright red, well-demarcated papules on her trunk 4. Right lower cheek- 0.2-0.3cm scaly irregular pink papule 5. Right distal elbow, right thigh - firm papule, centrally raised and sclerotic, with peripheral hyperpigmentation and dimpling with lateral pressure. 6. Left upper back - symmetrical pink soft papule with adjacent brown pigmented macule Diagnosis/Assessment/Treatment Plan: 1. Seborrheic keratosis, inflamed and irritated - I discussed this condition with the patient and explored therapeutic options. I recommended this could be treated with LN2 and she agreed. Procedure Note: Procedure: Destruction of lesion(s) with cryotherapy. Number: 1 Location: as above Discussed procedure and expectations including risks (including risk of hypopigmentation) and benefits. Verbal consent obtained. Frozen with LN2, 15-30 second thaw time, TWICE. There were no complications; the patient tolerated the procedure well. Post-procedure expectations and wound care were reviewed. 2. Seborrheic keratoses - reassurance given. 3. Fuentes Angioma - reassurance given 4. Actinic keratosis Discussed premalignent potential of these lesions. Discussed that a surgical procedure would likely be needed if these were to progress to skin cancer. Discussed treatment options including LN2, PDT, and 5-FU. Shared decision to proceed with LN2 treatment at this time. Advised to call if this lesion does not resolve as expected in 4-6 weeks. Procedure Note: Procedure: Destruction of lesion(s) with cryotherapy. Number: 1 Location: as above Discussed procedure and expectations including risks (including risk of hypopigmentation) and benefits. Verbal consent obtained. Frozen with LN2, 15-30 second thaw time, TWICE. There were no complications; the patient tolerated the procedure well. Post-procedure expectations and wound care were reviewed. 5. Dermatofibroma (DF) - reassurance given 6. Dermal nevus with adjacent lentigo -Picture taken for documentation and to show patient this spot. RTC in 1 year. Instructed to call with questions or concerns. Note initiated by Zara Britt LPN I am documenting this encounter acting as the scribe for and in the presence of Bree Mosher PA-C (Bri) I performed the above scribed service and agree with the accuracy of the documentation in this encounter. Reviewed and signed by Bree Mosher PA-C (Bri) Dermatology [facility] Attending physician: Azalia Espinosa MD Section of Dermatology [facility] A copy of this report has been sent to the referring provider either by electronic messaging or by fax. Please see message below: We appreciate you allowing us to join in the care of your patient. To help expedite future referrals, we have included some tips below for your reference. We have created guidelines for our scheduling team for prioritizing referrals. By adhering to these guidelines and referral process requests, we feel we can do a better job meeting your needs. Please note that the following lists are simply guidelines and are subject to change based on your clinical exam. MOST Urgent (need to be seen within 48-72 hours) *Call our Consult [place] to schedule at [phone] ??? New or changing pigmented lesion ??? Eruptive rash (new/concerning) ??? Ruptured cyst ??? Bullous dermatoses (blisters/ blistering rash) ??? Ulcerated hemangioma SEMI Urgent (need to be seen within 2 weeks) *Enter referral in eDH as ???Urgent?? or ???YEIMY? Eczema and psoriasis flares /dermatitis ??? Skin lesions concerning for non-melanoma skin cancer ??? Hemangioma LEAST Urgent (next available appointment) *Enter referral in eDH as ???Routine? Chronic rash ??? Cosmetic concerns (including skin tags) ??? Onychomycosis and other nail complaints ??? Cysts ??? Acne ??? Alopecia ??? Actinic keratosis ??? Warts/molluscum ??? matute We hope you will work with us to educate mutual patients on these expected timelines. We feel that this process will help us see the right patients at the right time. documented in this encounter Plan of Treatment Not on filedocumented as of this encounter Visit Diagnoses Diagnosis Dermatofibroma Benign neoplasm of skin, site unspecifie d Multiple benign nevi Benign neoplasm of skin, site unspecifie d Seborrheic keratosis, inflamed Inflamed seborrheic keratosis Actinic keratosis documented in this encounter Care Teams Game Developer Relationship Specialty Start Date End Date Conrado Chilel MD PCP - General 10/20/10 04/27/20 [address] [place] [address] documented as of this encounter
--- OUTSIDE RECORDS SUMMARY | 2022-10-15 00:16 | XMS_ITS | Encounter Summary ---
:1960 Author Organization [facility] [address] Care Team Providers Name Role Phone Conrado Chille MD Primary Care Provider Encounter Details Date Type Department Care Team Description 06/09/2015 Follow-Up Audiology [place] [facility] Joanne Jones, Mixed hearing loss, [place] [address] [address] [phone] AUDIOLOGY DEPT [place], [place] [address] (Wo rk) Social History Tobacco Use Types Packs/Day Years Used Date Smoking Tobacco: Never Smokeless Tobacco: Never Sex Assigned at Date Recorded Not on file documented as of this encounter Progress Notes Joanne Jones AUD - 06/09/2015 10:25 [place] [address] (phone), (fax) Roxie Morales was seen on 06/09/2015 for an audiologic evaluation. Please refer to the scanned audiogram for findings, impressions, and recommendations. documented in this encounter Plan of Treatment Not on filedocumented as of this encounter Visit Diagnoses Diagnosis Mixed hearing loss, unilateral documented in this encounter Care Teams Resident Programs Assistant Relationship Specialty Start Date End Date Conrado Chilel MD PCP - General 10/20/10 04/27/20 [address] [place] [address] documented as of this encounter
--- OUTSIDE RECORDS SUMMARY | 2022-10-15 00:16 | XMS_ITS | Encounter Summary ---
:1960 Author Organization [facility] [place] [address] Care Team Providers Name Role Phone Conrado Chilel MD Primary Care Provider Encounter Details Date Type Department Care Team Description 11/24/2011 External Results Audiology at [facility] Lolis Pierce, [facility] [place] [address] [facility] [phone] AUDIOLOGY DEPT [place] [address] (Wo rk) Social History Tobacco Use Types Packs/Day Years Used Date Smoking Tobacco: Never Smokeless Tobacco: Never Sex Assigned at Date Recorded Not on file documented as of this encounter Plan of Treatment Not on filedocumented as of this encounter Procedures Procedure Name Priority Date/Time Associated Diagnosis Comme nts AUDIOLOGY SCAN Routine 11/23/2011 documented in this encounter Results Scan Doc: Audiology (11/23/2011) Narrative This result has an attachment that is no t available. Lolis Leonlla Stan MS MEDIA MGR SCAN EXT ORDR/RSLT documented in this encounter Visit Diagnoses Not on filedocumented in this encounter Care Teams Twister Hand Relationship Specialty Start Date End Date Conrado Chilel MD PCP - General 10/20/10 04/27/20 [address] [place] [address] documented as of this encounter
--- OUTSIDE RECORDS SUMMARY | 2022-10-15 00:16 | XMS_ITS | Encounter Summary ---
:1960 Author Organization [facility] [address] Care Team Providers Name Role Phone Unavailable Primary Care Provider Unavailable Encounter Details Date Type Department Care Team Description 09/30/2010 Follow-Up Otolaryngology at [facility] Sarabjit Anaya MD [place] [address] OTOLARYNGOLOGY DEPT. [phone] [place], [place] [address] (Wo rk) Social History Tobacco Use Types Packs/Day Years Used Date Smoking Tobacco: Never Assessed Sex Assigned at Date Recorded Not on file documented as of this encounter Plan of Treatment Not on filedocumented as of this encounter Visit Diagnoses Not on filedocumented in this encounter
--- OUTSIDE RECORDS SUMMARY | 2022-10-15 00:16 | XMS_ITS | Encounter Summary ---
:1960 Author Organization [facility] [place] [address] Care Team Providers Name Role Phone Conrado Chilel MD Primary Care Provider Encounter Details Date Type Department Care Team Description 07/27/2012 Follow-Up Audiology at [facility] Haim Contreras, Pulsatile tinnitus (Primary Dx); [facility] AUD Conductive hearing loss [place] [address] AUDIOLOGY DEPT. [place], [place] [address] Social History Tobacco Use Types Packs/Day Years Used Date Smoking Tobacco: Never Smokeless Tobacco: Never Sex Assigned at Date Recorded Not on file documented as of this encounter Progress Notes Haim Contreras, AUD - 07/27/2012 1:21 PM EDT AUDIOLOGY SECTION AUDIOLOGIC EVALUATION [place], [place] Roxie Morales was seen on 07/27/2012 for an audiologic evaluation. Please refer to the scanned audiogram listed under ???Chart Review?? and Scan Doc for findings, impressions and recommendations. It may take up to 24 hours for the audiogram to be scanned. Liss Jean, C-BOSSMAN Clinical Graduate Assistant [facility] [place] [address] ; [phone] (fax) [email or web address] documented in this encounter Plan of Treatment Not on filedocumented as of this encounter Visit Diagnoses Diagnosis Pulsatile tinnitus - Primary Unspecified tinnitus Conductive hearing loss in left ear Conductive hearing loss, unilateral documented in this encounter Care Teams Quarter Trimmer Relationship Specialty Start Date End Date Conrado Chilel MD PCP - General 10/20/10 04/27/20 [address] [place] [address] documented as of this encounter
--- OUTSIDE RECORDS SUMMARY | 2022-10-15 00:16 | XMS_ITS | Encounter Summary ---
:1960 Author Organization [place] [address] Care Team Providers Name Role Phone Conrado Chilel MD Primary Care Provider Encounter Details Date Type Department Care Team Description 10/28/2015 Clinical Support Audiology at [facility] Юлия Ramey, [place] [facility] AUD adjustment of [facility] [employer] hearing aid [place], [place] CENTER [address] AUDIOLOGY DEPT [phone] [place] [id number] Social History Tobacco Use Types Packs/Day Years Used Date Smoking Tobacco: Never Smokeless Tobacco: Never Sex Assigned at Date Recorded Not on file documented as of this encounter Progress Notes Юлия Naik, AUD - 10/28/2015 1:42 PM EST AUDIOLOGY Roxie Morales was fit today with a left hearing aid. Hearing aid programming was adjusted so that the aided responses approximated prescriptive targets for speech without exceeding MPO targets. Ms. Morales was subjectively satisfied with the sound quality of the aid, and loudness discomfort was denied. Ms. Morales was instructed on use, care and maintenance of the hearing aid, including instruction on hearing aid insertion/removal, cleaning and batteries. Warranty coverage, and the 30-day trial periodwere discussed. A review of expectations and the hearing aid adjustment process were also discussed.Ms. Morales was able to insert and manipulate the instrument with relative ease. she will be seen in 2-4 weeks for a follow-up hearing aid check and orientation. Lupe Walsh Clinical Medical Office [place] [address] (fax) HEARING AID(S): HEARING AID RIGHT LEFT Make/Model/Style Phonak Bolero V50 M Casing Color Champagne Serial Number [id number] Battery Size 312 Invoice number / date [id number] 10/13/15 PROGRAM/SETTINGS Fitting Algorithm DSL-Adult Verification Method REM Programs Autosense OS Disabled Features Push button Other HEARING AID WARRANTY Original Fit Date [...] aid documented in this encounter Care Teams Meat Wrapper Relationship Specialty Start Date End Date Conrado Chilel MD PCP - General 10/20/10 04/27/20 [address] [place] [address] documented as of this encounter
--- OUTSIDE RECORDS SUMMARY | 2022-10-15 00:16 | XMS_ITS | Encounter Summary ---
:1960 Author Organization [facility] [place] [address] Care Team Providers Name Role Phone Conrado Chilel MD Primary Care Provider Encounter Details Date Type Department Care Team Description 04/13/2017 Telephone Dermatology at [facility] Bree Mosher PA [address] [facility] [address] [facility] [phone] [place], [place] [address] (Wo rk) Social History Tobacco Use Types Packs/Day Years Used Date Smoking Tobacco: Never Smokeless Tobacco: Never Sex Assigned at Date Recorded Not on file documented as of this encounter Miscellaneous Notes Telephone Encounter - Bree Mosher PA - 04/13/2017 11:22 AM EDT Called patient to change appt scheduled appointment on May 24 to another day as I will not be here.If she needs to be seen that day/time, she can be changed to [facility]'s schedule. documented in this encounter Plan of Treatment Not on filedocumented as of this encounter Visit Diagnoses Not on filedocumented in this encounter Care Teams Drum Drier Relationship Specialty Start Date End Date Conrado Chilel MD PCP - General 10/20/10 04/27/20 [address] [place] [address] documented as of this encounter
--- OUTSIDE RECORDS SUMMARY | 2022-10-15 00:16 | XMS_ITS | Encounter Summary ---
:1960 Author Organization [facility] [place] [address] Care Team Providers Name Role Phone Conrado Chilel MD Primary Care Provider Reason for Visit Reason Comments Follow-up Encounter Details Date Type Department Care Team Description 07/27/2012 Follow-Up Otolaryngology at [facility] Sarabjit Anaya, Pulsatile tinnitus (Primary Dx); [facility] Melinda moon MD CHL (conductive hearing loss) [place] [address] [facility] [phone] OTOLARYNGOLOGY DEPT. [place], [place] 0[address] Social History Tobacco Use Types Packs/Day Years Used Date Smoking Tobacco: Never Smokeless Tobacco: Never Sex Assigned at Date Recorded Not on file documented as of this encounter Last Filed Vital Signs Vital Sign Reading Time Taken Comments Blood Pressure 139/74 07/27/2012 1:30 PM EDT Pulse 68 07/27/2012 1:30 PM EDT Temperature - - Respiratory Rate - - Oxygen Saturation - - Inhaled Oxygen Concentration - - Weight 86.2 kg (190 lb) 07/27/2012 1:30 PM EDT Height 167.6 cm (5' 6) 07/27/2012 1:30 PM EDT Body Mass Index 30.67 07/27/2012 1:30 PM EDT documented in this encounter Progress Notes Sarabjit Anaya MD - 07/27/2012 2:49 PM EDT HPI: h/o pulsatile tinnitus in left ear and CHL with neg MRI and CT thought c/w otosclerosis, now presents with head fullness and right ear tinnitus andhearing loss that occurs when she stands form sitting position, Doesn't occur when she has been lying down. Lasts for seconds and then abates. No dizziness, lightheadedness or syncope. No headaches. PMH: reviewed, no interval change System review: the Constitutional and ENT systems are thoroughly reviewed for any changes. Pertinentpositives are listed in the HPI. Physical Exam: The patient is well developed, well nourished. Responds to commands appropriately. Vocalizes in a strong clear voice. Alert and oriented x3. Ears: The pinnas are without erythema or mass. Facial motor function strong and symmetrical. Both ears were carefully examined using binocular microscopy Right:Normal EAC and TM w/ excellent mobility and no middle ear disease. fistula test negative, normal landmarks Left:Normal EAC and TM w/ excellent mobility and no middle ear disease. fistula test negative, normal landmarks Fundi - normal venous pulsation The following audiological studies were reviewed by me: CHL in left ear (slight progression form last year) , nl on right The following imaging studies were reviewed by me: CT, MRA and MRI - NL A/P: Uncertain of the cause of these new right sided symptoms. There was no drop in her BP with standing today and her exam is normal. There is no change of her hearing in the right. I have asked her to follow up with her PCP as I believe these ear symptoms are the manifestation of a systemic condition, possibly orthostatic BP change. There is no evidence of BIH in her case and she does not have headaches. 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 RTC 1 yr with AE. documented in this encounter Plan of Treatment Not on filedocumented as of this encounter Visit Diagnoses Diagnosis Pulsatile tinnitus - Primary Unspecified tinnitus CHL (conductive hearing loss) Unspecified conductive hearing loss documented in this encounter Care Teams Hand Tier Relationship Specialty Start Date End Date Conrado Chilel MD PCP - General 10/20/10 04/27/20 [address] [place] [address] documented as of this encounter
--- OUTSIDE RECORDS SUMMARY | 2022-10-15 00:16 | XMS_ITS | Encounter Summary ---
:1960 Author Organization [facility] [place] [address] Care Team Providers Name Role Phone Conrado Chilel MD Primary Care Provider Encounter Details Date Type Department Care Team Description 11/16/2016 Office Visit [place] [facility] [place]лия Ramey, Fitting and adjustment [facility] [place]UD [place] [address] AUDIOLOGY DEPT [phone] [place], [place] [address] Social History Tobacco Use Types Packs/Day Years Used Date Smoking Tobacco: Never Smokeless Tobacco: Never Sex Assigned at Date Recorded Not on file documented as of this encounter Progress Notes Юлия Ramey, AUD - 11/16/2016 7:30 AM EST AUDIOLOGY Roxie Morales was seen today for a hearing aid check. Ms. Morales reported that she uses the hearing aid consistently and it does help improve speech clarity. The following actions were taken: ?? A listening check indicated that the hearing aid was functioning appropriately ?? Verification of fit was completed via [id number] (REM) using the DSL- Adult prescriptive fitting method. Hearing aid programming was adjusted (very minor gain changes) so that the aided response nicely approximated targets for speech without exceeding MPO targets. ??NL?? was subjectively satisfied with the sound quality of the aids, and loudness discomfort was denied. ?? Simulated real ear measures were obtained and function of the directional microphones was verified. RECOMMENDATIONS: Return to clinic for annual hearing re-evaluation and hearing aid check, sooner if concerns arise. Please do not hesitate to contact this Section at [phone] if there are questions regarding thisreport or its recommendations. Kike [place]abb [place] [address] ; HEARING AID(S): HEARING AID RIGHT LEFT Make/Model/Style ?? Diego Gracia V50 M Casing Color ?? [facility] Serial Number ?? [id number] Battery Size ?? 312 Invoice number / date ?? [id number] 10/13/15 PROGRAM/SETTINGS ? Fitting Algorithm ?? DSL-Adult Verification Method ?? REM Programs ?? Autosense OS P1= Speech in Noise (less low frequency gain, increased high frequency gain) Disabled Features ? Other ? HEARING AID WARRANTY ? Original Fit Date ?? 10/28/15 Current Status ?? 01/10/18 EARMOLD (if BTE HOANG) ? Lab ? Earmold / Slim tube / EMILEE specifics ?? Length 2 thin-tube/ medium closed dome Impression Date ? Invoice # ? ACCESSORIES ? Make/Model ? Color ? Serial Number ? Warranty date ? Invoice number/date ? documented in this encounter Plan of Treatment Not on filedocumented as of this encounter Visit Diagnoses Diagnosis Fitting and adjustment of hearing aid documented in this encounter Care Teams Oil Rig Roughneck Relationship Specialty Start Date End Date Conrado Chilel MD PCP - General 10/20/10 04/27/20 [address] [place] [address] documented as of this encounter
--- OUTSIDE RECORDS SUMMARY | 2022-10-15 00:16 | XMS_ITS | Encounter Summary ---
:1960 Author Organization [facility] [place] [address] Care Team Providers Name Role Phone Conrado Chilel MD Primary Care Provider Reason for Visit Reason Onset Date Comments Prior Authorization 10/16/2015 hearing aid benefits Encounter Details Date Type Department Care Team Description 10/16/2015 Telephone Audiology at [facility] Юлия Ramey, Prior Authorization [facility] AUD (hearing aid benefits) [place] [address] AUDIOLOGY DEPT [place], [place] [address] Social History Tobacco Use Types Packs/Day Years Used Date Smoking Tobacco: Never Smokeless Tobacco: Never Sex Assigned at Date Recorded Not on file documented as of this encounter Miscellaneous Notes Telephone Encounter - Alejandrina Reid - 10/16/2015 12:36 PM EST PER OUSMANE @[facility]: AIDS ARE NOT A BENEFIT ON THE PATIENTS POLICY. REF# IS [id number]. documented in this encounter Plan of Treatment Not on filedocumented as of this encounter Visit Diagnoses Not on filedocumented in this encounter Care Teams Relocation Associate Relationship Specialty Start Date End Date Conrado Chilel MD PCP - General 10/20/10 04/27/[address] [place] [address] documented as of this encounter
--- OUTSIDE RECORDS SUMMARY | 2022-10-15 00:16 | XMS_ITS | Encounter Summary ---
:1960 Author Organization [facility] [place] [address] Care Team Providers Name Role Phone Conrado Chilel MD Primary Care Provider Encounter Details Date Type Department Care Team Description 01/02/[address] [facility] [place] [address] Social History Tobacco Use Types Packs/Day Years Used Date Smoking Tobacco: Never Smokeless Tobacco: Never Sex Assigned at Date Recorded Not on file documented as of this encounter Miscellaneous Notes Telephone Encounter - Lovely Berg LNA - 01/02/2014 10:48 AM EST Reminder sent documented in this encounter Plan of Treatment Not on filedocumented as of this encounter Visit Diagnoses Not on filedocumented in this encounter Care Teams Scientific Specialist Relationship Specialty Start Date End Date Conrado Chilel MD PCP - General 10/20/10 04/27/20 [address] [place] [address] documented as of this encounter
--- OUTSIDE RECORDS SUMMARY | 2022-10-15 00:16 | XMS_ITS | Encounter Summary ---
:1960 Author Organization [facility] [place] [address] Care Team Providers Name Role Phone Conrado Chilel MD Primary Care Provider Encounter Details Date Type Department Care Team Description 08/02/2012 External Results Audiology at [facility] Haim Contreras, [facility] [place] [address] [facility] [phone] AUDIOLOGY DEPT. [place], [place] [address] Social History Tobacco Use Types Packs/Day Years Used Date Smoking Tobacco: Never Smokeless Tobacco: Never Sex Assigned at Date Recorded Not on file documented as of this encounter Plan of Treatment Not on filedocumented as of this encounter Procedures Procedure Name Priority Date/Time Associated Diagnosis Comme nts AUDIOLOGY SCAN Routine 07/27/2012 documented in this encounter Results Scan Doc: Audiology (07/27/2012) Narrative This result has an attachment that is no t available. Haim Contreras AUD MEDIA MGR SCAN EXT ORDR/RSLT documented in this encounter Visit Diagnoses Not on filedocumented in this encounter Care Teams Motor Racer Relationship Specialty Start Date End Date Conrado Chilel MD PCP - General 10/20/10 04/27/20 [address] [place] [address] documented as of this encounter
--- OUTSIDE RECORDS SUMMARY | 2022-10-15 00:16 | XMS_ITS | Encounter Summary ---
:1960 Author Organization [facility] [place] [address] Care Team Providers Name Role Phone Conrado Chilel MD Primary Care Provider Reason for Visit Reason Comments Follow-up Encounter Details Date Type Department Care Team Description 05/17/2014 Follow-Up Otolaryngology at [facility] Sarabjit Anaya, Cerumen impaction, right (Pr imary Dx); [facility] Melinda moon MD SNHL (sensorineural hearing loss); [place] [address] [facility] Pulsatile tinnitus, left [phone] OTOLARYNGOLOGY DEPT. [place], [place] [address] Social History Tobacco Use Types Packs/Day Years Used Date Smoking Tobacco: Never Smokeless Tobacco: Never Sex Assigned at Date Recorded Not on file documented as of this encounter Last Filed Vital Signs Vital Sign Reading Time Taken Comments Blood Pressure 142/73 05/17/2014 1:47 PM EDT Pulse 65 05/17/2014 1:47 PM EDT Temperature - - Respiratory Rate - - Oxygen Saturation - - Inhaled Oxygen Concentration - - Weight 88.5 kg (195 lb) 05/17/2014 1:47 PM EDT Height 167.6 cm (5' 6) 05/17/2014 1:47 PM EDT Body Mass Index 31.47 05/17/2014 1:47 PM EDT documented in this encounter Progress Notes Sarabjit Anaya MD - 05/17/2014 1:22 PM EDT In the presence of Dr Anaya, I am recording the patients history of present illness. Lovely JEREZ HPI: h/o pulsatile tinnitus in left ear and CHL with neg MRI and CT thought c/w otosclerosis, last seen in clinic 07/27/2012, at that time Roxie presented with head fullness and right ear tinnitus and hearing loss that occurs when she stands form sitting position, Doesn't occur when she has been lying down. Lasts for seconds and then abates. Today Roxie states she still have the pulsatile tinnitus and it's symptoms, also with some dizziness she is working with her PCP, not sure if it is related to her anxiety, now on 20 MG Fluoxitine daily. PMH: reviewed, no interval change System review: the Constitutional and ENT systems are thoroughly reviewed for any changes. Pertinentpositives are listed in the HPI. Physical Exam: BP: 138/70 sitting, 128/73 standing The patient is well developed, well nourished. Responds to commands appropriately. Vocalizes in a strong clear voice. Alert and oriented x3. Ears: The pinnas are without erythema or mass. Facial motor function strong and symmetrical. Both ears were carefully examined using binocular microscopy Right:Normal EAC with wax and TM w/ excellent mobility and no middle ear disease. fistula test negative, normal landmarks Procedure: The impacted cerumen was obstructing the full view of the tympanic membrane, therefore the ear canals were cleaned of wax and debris with binocular microscopy using small blunt tip curettes,forceps and suctions as needed. Left:Normal EAC and TM w/ excellent mobility and no middle ear disease. fistula test negative, normal landmarks Ocular Exam: No spontaneous or gaze evoked nystagmus, EOMI with smooth pursuit Eyes Closed Rhomberg - stable Tandem Rhomberg - stable for 10 - 20 sec Tandem Gait - able to walk 5 ft with pivot and return with minimal or no errors Fukuda Test - stable without drift Delano-Hallpike Position Right - No dizziness or Nystagmus Lorraine-Hallpike Position Left - No dizziness or Nystagmus The following audiological studies were reviewed by me: Mild low Hz SNHL (previous scored as CHL) inleft ear, stable. nl on right The following imaging studies were reviewed by me: CT, MRA and MRI - NL A/P: Low frequency HL AD with pulsatile tinnitus. 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 Advised her RE low salt diet. Dizziness most likely due to orthostatic hypotension, but advised her RE BPPV as well. RTC 1 yr with AE I have performed the service outlined in the notes from this encounter. I have reviewed the pertinent details in the chart, interviewed and review the HPI with the patient, and personally examined the patient. I agree with the documented history and I am responsible for the exam findings and management plan as documented in the note. Jimmie Anaya MD documented in this encounter Plan of Treatment Not on filedocumented as of this encounter Visit Diagnoses Diagnosis Cerumen impaction, right - Primary SNHL (sensorineural hearing loss) Sensorineural hearing loss, unspecified Pulsatile tinnitus, left documented in this encounter Care Teams Hair Weaver Relationship Specialty Start Date End Date Conrado Chilel MD PCP - General 10/20/10 04/27/20 [address] [place] [address] documented as of this encounter
--- OUTSIDE RECORDS SUMMARY | 2022-10-15 00:16 | XMS_ITS | Encounter Summary ---
:1960 Author Organization [facility] [place] [address] Care Team Providers Name Role Phone Conrado Chilel MD Primary Care Provider Encounter Details Date Type Department Care Team Description 08/12/2015 External Results Otolaryngology at [facility] Emely Lewis [facility] [place] [address] [facility] [phone] AUDIOLOGY [place], [place] [address] (Wo rk) Social History Tobacco Use Types Packs/Day Years Used Date Smoking Tobacco: Never Smokeless Tobacco: Never Sex Assigned at Date Recorded Not on file documented as of this encounter Plan of Treatment Not on filedocumented as of this encounter Procedures Procedure Name Priority Date/Time Associated Diagnosis Comme nts AUDIOLOGY SCAN Routine 08/11/2015 documented in this encounter Results Scan Doc: Audiology (08/11/2015) Narrative This result has an attachment that is no t available. [facility] MGR SC[facility] EXT ORDR/RSLT documented in this encounter Visit Diagnoses Not on filedocumented in this encounter Care Teams Leather Goods Sales Representative Relationship Specialty Start Date End Date Conrado Chilel MD PCP - General 10/20/10 04/27/20 [address] [place] [address] documented as of this encounter
--- OUTSIDE RECORDS SUMMARY | 2022-10-15 00:16 | XMS_ITS | Encounter Summary ---
:1960 Author Organization [facility] [place] [address] Care Team Providers Name Role Phone Unavailable Primary Care Provider Unavailable Encounter Details Date Type Department Care Team Description 09/30/2010 Follow-Up Audiology at [facility] Teri Contreras, [facility] [place] [address] AUDIOLOGY DEPT [phone] [place], [place] [address] (Wo rk) Social History Tobacco Use Types Packs/Day Years Used Date Smoking Tobacco: Never Assessed Sex Assigned at Date Recorded Not on file documented as of this encounter Plan of Treatment Not on filedocumented as of this encounter Visit Diagnoses Not on filedocumented in this encounter
--- OUTSIDE RECORDS SUMMARY | 2022-10-15 00:16 | XMS_ITS | Encounter Summary ---
:1960 Author Organization [facility] [place] [address] Care Team Providers Name Role Phone Conrado Chilel MD Primary Care Provider Reason for Visit Reason Comments Follow-up pressure in L ear Encounter Details Date Type Department Care Team Description 11/23/2011 Follow-Up Otolaryngology at [facility] Blandon Otosclerosis of both ears (P rimary Dx); [facility] Melinda Zam[place] [address] [facility] [phone] [facility]. [place], [place] [address] Social History Tobacco Use Types Packs/Day Years Used Date Smoking Tobacco: Never Smokeless Tobacco: Never Sex Assigned at Date Recorded Not on file documented as of this encounter Last Filed Vital Signs Vital Sign Reading Time Taken Comments Blood Pressure 134/77 11/23/2011 3:39 PM EST Pulse 62 11/23/2011 3:39 PM EST Temperature - - Respiratory Rate - - Oxygen Saturation - - Inhaled Oxygen Concentration - - Weight 86.2 kg (190 lb) 11/23/2011 3:39 PM EST Height 167.6 cm (5' 6) 11/23/2011 3:39 PM EST Body Mass Index 30.67 11/23/2011 3:39 PM EST documented in this encounter Progress Notes Sarabjit Anaya MD - 11/23/2011 4:17 PM EST HPI: h/o mild CHL, Presumed to be otosclerosis, recent URI PMH: reviewed, no interval change System review: [...] ears were carefully examined using binocular microscopy Right: wax in EAC, o/w Normal EAC and TM w/ excellent mobility and no middle ear disease. fistula test negative, normal landmarks Procedure: The impacted cerumen was obstructing the full view of the tympanic membrane, therefore the ear canals were cleaned of wax and debris with binocular microscopy using small blunt tip curettes,forceps and suctions as needed. Left: minimal wax in EAc, o/w Normal EAC and TM w/ excellent mobility and no middle ear disease. fistula test negative, normal landmarks Audiogram: No change of left mild CHL, tymp - reduced compliance Radiology Studies: Ct and MRI reviewed - NL A/P: Presumed otosclerosis. RTC 2 yrs with AE. documented in this encounter Plan of Treatment Not on filedocumented as of this encounter Visit Diagnoses Diagnosis Otosclerosis of both ears - Primary Otosclerosis, unspecified Cerumen impaction Impacted cerumen documented in this encounter Care Teams Geospatial Systems Integrator Relationship Specialty Start Date End Date Conrado Chilel MD PCP - General 10/20/10 04/27/20 [address] [place] [address] documented as of this encounter
--- OUTSIDE RECORDS SUMMARY | 2022-10-15 00:16 | XMS_ITS | Encounter Summary ---
:1960 Author Organization [facility] [place] [address] Care Team Providers Name Role Phone Conrado Chilel MD Primary Care Provider Encounter Details Date Type Department Care Team Description 02/17/2015 Telephone Otolaryngology at [facility] [place] [address] Social History Tobacco Use Types Packs/Day Years Used Date Smoking Tobacco: Never Smokeless Tobacco: Never Sex Assigned at Date Recorded Not on file documented as of this encounter Miscellaneous Notes Telephone Encounter - Chhaya Flowers - 02/17/2015 3:50 PM EDT Sent April [address] Anaya documented in this encounter Plan of Treatment Not on filedocumented as of this encounter Visit Diagnoses Not on filedocumented in this encounter Care Teams Site Auditor Relationship Specialty Start Date End Date Conrado Chilel MD PCP - General 10/20/10 04/27/20 [address] [place] [address] documented as of this encounter
--- OUTSIDE RECORDS SUMMARY | 2022-10-15 00:16 | XMS_ITS | Encounter Summary ---
:1960 Author Organization [place] [address] Care Team Providers Name Role Phone Conrado Chilel MD Primary Care Provider Encounter Details Date Type Department Care Team Description 05/21/2014 External Results Otolaryngology at [facility] Emely Lewis [facility] [place] [address] [facility] [phone] AUDIOLOGY [place], [place] [address] (Wo rk) Social History Tobacco Use Types Packs/Day Years Used Date Smoking Tobacco: Never Smokeless Tobacco: Never Sex Assigned at Date Recorded Not on file documented as of this encounter Plan of Treatment Not on filedocumented as of this encounter Procedures Procedure Name Priority Date/Time Associated Diagnosis Comme nts AUDIOLOGY SCAN Routine 05/17/2014 documented in this encounter Results Scan Doc: Audiology (05/17/2014) Narrative This result has an attachment that is no t available. [facility] MGR SCAN EXT ORDR/RSLT documented in this encounter Visit Diagnoses Not on filedocumented in this encounter Care Teams Supervisor [place] Relationship Specialty Start Date End Date Conrado Chilel MD PCP - General 10/20/10 04/27/20 [address] [place] [address] documented as of this encounter
--- OUTSIDE RECORDS SUMMARY | 2022-10-15 00:16 | XMS_ITS | Encounter Summary ---
:1960 Author Organization [place] [address] Care Team Providers Name Role Phone Conrado Chilel MD Primary Care Provider Encounter Details Date Type Department Care Team Description 09/30/2015 Clinical Support Audiology at [facility] Юлия Ramey, Unilateral [facility] AUD conductive hearing [address] [facility] loss [place], [place] CENTER [address] AUDIOLOGY DEPT [phone] [place] [address] Social History Tobacco Use Types Packs/Day Years Used Date Smoking Tobacco: Never Smokeless Tobacco: Never Sex Assigned at Date Recorded Not on file documented as of this encounter Progress Notes Юлия Naik, AUD - 09/30/2015 12:30 PM EST AUDIOLOGY SECTION HEARING AID SELECTION APPOINTMENT Roxie Morales returns today for a hearing aid selection appointment. Ms. 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 She has tinnitus that can fluctuate in intensity. It is stressful to listen in noisy environments, as shenotices difficulty understanding people. Ms. Morales was counseled regarding hearing aid styles, technology, and pricing options. In consideration of Ms. Morales's auditory demands and degree/configuration of hearing loss, it was agreed that Phonak Bolero V50 M hearing aid would be appropriate for her needs. Otoscopy showed a clear left ear canal. Ms. Morales was counseled about the terms of the purchase and the thirty day return privilege. Although medical clearance was recommended prior to the new hearing aid fitting, Ms. Morales opted to sign the medical clearance waiver. The New Hearing Instruments: Itemized Fees form was reviewed and signed by Ms. Morales, and she understood the terms of payment. PLAN Monaural hearing aid fitting in the left ear. Liss Walsh, Flower Shop Laborer/Designer [facility] [place] [address] [address] ; [phone] (fax) documented in this encounter Plan of Treatment Not on filedocumented as of this encounter Visit Diagnoses Diagnosis Unilateral conductive hearing loss Conductive hearing loss, unilateral documented in this encounter Care Teams Tableau Analyst Relationship Specialty Start Date End Date Conrado Chilel MD PCP - General 10/20/10 04/27/20 [address] [place] [address] documented as of this encounter
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
--- OUTSIDE RECORDS SUMMARY | 2022-10-15 00:16 | XMS_ITS | Encounter Summary ---
:1960 Author Organization [facility] [place] [address] Care Team Providers Name Role Phone Conrado Chilel MD Primary Care Provider Encounter Details Date Type Department Care Team Description 11/11/2015 Clinical Support Audiology at [facility] Юлия Ramey, [place] and [facility] AUD adjustment of Drive [facility] hearing aid [place], [place] C[place] [address] AUDIOLOGY DEPT [phone] [place] [id number] Social History Tobacco Use Types Packs/Day Years Used Date Smoking Tobacco: Never Smokeless Tobacco: Never Sex Assigned at Date Recorded Not on file documented as of this encounter Progress Notes Юлия Naik, ALBERT - 11/11/2015 7:46 AM EST AUDIOLOGY HEARING AID CHECK Roxie Morales returns today after fitting of a left hearing aid. Ms. Morales reported the following information: The hearing aid seems to be helping her understand speech better. While the change in her hearing isnot dramatic, she is understanding her better and she is able to understand speech more easily in noisy situations. Soft female speech and child's speech can still be challenging to understand in the classroom setting. 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 The following actions were taken: ?? Otoscopy showed a clear left ear canal and no signs of irritation from the hearing aid. ?? Program 1 was created for Ms. Morales to try in the classroom setting (decreased low frequency, increased high frequency gain). ?? Simulated real ear measures were obtained and function of the directional microphones was verified. ?? Ms. Morales was provided 3 extra tubes/domes for the hearing instrument. Plan: Annual audiologic evaluation and hearing aid check. Patient was advised to contact the clinic if concerns arise in the interim. Albert Franklin [place] [address] ; HEARING AID(S): HEARING AID RIGHT LEFT Make/Model/Style Phonak Bolero V50 M Casing Color Champagne Serial Number [id number] Battery Size 312 Invoice number / date [id number] 10/13/15 PROGRAM/SETTINGS Fitting Algorithm DSL-Adult Verification Method [...] aid documented in this encounter Care Teams Printed Circuit Boards Inspector Relationship Specialty Start Date End Date Conrado Chilel MD PCP - General 10/20/10 04/27/20 [address] [place] [address] documented as of this encounter
--- OUTSIDE RECORDS SUMMARY | 2022-10-15 00:16 | XMS_ITS | Encounter Summary ---
:1960 Author Organization [place] [address] Care Team Providers Name Role Phone Conrado Chilel MD Primary Care Provider Encounter Details Date Type Department Care Team Description 06/09/2015 External Results Otolaryngology at Joanne Molina, [facility] [place] [address] [facility] [phone] AUDIOLOGY [place], [place] [address] (Wo rk) Social History Tobacco Use Types Packs/Day Years Used Date Smoking Tobacco: Never Smokeless Tobacco: Never Sex Assigned at Date Recorded Not on file documented as of this encounter Plan of Treatment Not on filedocumented as of this encounter Procedures Procedure Name Priority Date/Time Associated Diagnosis Comme nts AUDIOLOGY SCAN Routine 06/09/2015 documented in this encounter Results Scan Doc: Audiology (06/09/2015) Narrative This result has an attachment that is no t available. Joanne [facility] [place] MGR SCAN EXT ORDR/RSLT documented in this encounter Visit Diagnoses Not on filedocumented in this encounter Care Teams Lumber Carrier Operator Relationship Specialty Start Date End Date Conrado Chilel MD PCP - General 10/20/10 04/27/[address] [place] [address] documented as of this encounter
--- OUTSIDE RECORDS SUMMARY | 2022-10-15 00:16 | XMS_ITS | Encounter Summary ---
:1960 Author Organization [facility] [place] [address] Care Team Providers Name Role Phone Conrado Chilel MD Primary Care Provider Reason for Visit Reason Comments Follow-up Encounter Details Date Type Department Care Team Description 08/11/2015 Follow-Up Otolaryngology at [facility] Sarabjit Anaya, L (mixed hearing loss); [facility] Melinda moon MD Bilateral impacted cerumen; [phone] [facility] Pulsatile tinnitus, left [phone] OTOLARYNGOLOGY DEPT. [place], [place] [address] Social History Tobacco Use Types Packs/Day Years Used Date Smoking Tobacco: Never Smokeless Tobacco: Never Sex Assigned at Date Recorded Not on file documented as of this encounter Last Filed Vital Signs Vital Sign Reading Time Taken Comments Blood Pressure 141/78 08/11/2015 9:29 AM EDT Pulse 58 08/11/2015 9:29 AM EDT Temperature - - Respiratory Rate - - Oxygen Saturation - - Inhaled Oxygen Concentration - - Weight 88.5 kg (195 lb) 08/11/2015 9:29 AM EDT Height 167.6 cm (5' 6) 08/11/2015 9:29 AM EDT Body Mass Index 31.47 08/11/2015 9:29 AM EDT documented in this encounter Progress Notes Sarabjit Anaya MD - 08/11/2015 8:54 AM EDT In the presence of Dr Anaya, I am recording the patients history of present illness. Lovely JEREZ HPI: h/o pulsatile tinnitus in left ear and CHL with neg MRI and CT thought c/w otosclerosis (no SCCD), last seen in clinic 05/17/2014. Doesn't notice change in hearing. Does occ have fullness AD and tinnitus L>>R.. Evaluated by Neurology in [place], [place] for her dizziness, diagnosed with migraine related dizziness. Returns today after a trial of low sodium diet. Still with fullness, tinnitus and dizziness. Is postmenopausal ~ 1 - 2 yrs ago PMH: reviewed, no interval change System review: [...] ears were carefully examined using binocular microscopy Procedure: The impacted cerumen was obstructing the full view of the tympanic membrane, therefore the ear canal bilaterally were cleaned of wax and debris with binocular microscopy using small blunt tip curettes, forceps and suctions as needed. Left:Normal EAC and TM w/ excellent mobility and no middle ear disease. fistula test negative, normal landmarks Right:Normal EAC with wax and TM w/ excellent mobility and no middle ear disease. fistula test negative, normal landmarksOcular Exam: No spontaneous or gaze evoked nystagmus, EOMI with smooth pursuit Procedure: The impacted cerumen was obstructing the full view of the tympanic membrane, therefore the ear canals were cleaned of wax and debris bilateral with binocular microscopy using small blunt tipcurettes, forceps and suctions as needed. The following audiological studies were reviewed by me: low Hz MHL in left ear, nl on right The following imaging studies were reviewed by me: CT, MRA and MRI - NL as above A/P: Low frequency HL with fullness . 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 Early Otosclerosis (most likely). She would like to explore amplification as she is straining with male voices. Dizziness is most likely related to migraine and perimenopausal state. May consider low dose progesterone. I have performed the service outlined in the notes from this encounter and agree with the accuracy of the note. Jimmie Anaya MD documented in this encounter Plan of Treatment Not on filedocumented as of this encounter Visit Diagnoses Diagnosis MHL (mixed hearing loss) Mixed hearing loss, unspecified Bilateral impacted cerumen Impacted cerumen Pulsatile tinnitus, left documented in this encounter Care Teams Bicycle Taxi Driver Relationship Specialty Start Date End Date Conrado Chilel MD PCP - General 10/20/10 04/27/20 [address] [place] [address] documented as of this encounter
--- OUTSIDE RECORDS SUMMARY | 2022-10-15 00:16 | XMS_ITS | Encounter Summary ---
:1960 Author Organization [facility] [place] [address] Care Team Providers Name Role Phone Conrado Chilel MD Primary Care Provider Encounter Details Date Type Department Care Team Description 01/01/2011 Follow-Up Otolaryngology at [facility] Jessee Hickman MD [facility] [place] [address] OTOLARYNGOLOGY DEPT. [phone] [place], [place] [address] (Wo rk) Social History Tobacco Use Types Packs/Day Years Used Date Smoking Tobacco: Never Assessed Sex Assigned at Date Recorded Not on file documented as of this encounter Plan of Treatment Not on filedocumented as of this encounter Visit Diagnoses Not on filedocumented in this encounter Care Teams Regional Telecommunications Specialist Relationship Specialty Start Date End Date Conrado Chilel MD PCP - General 10/20/10 04/27/20 [address] [place], [place] [address] documented as of this encounter
--- OUTSIDE RECORDS SUMMARY | 2022-10-15 00:16 | XMS_ITS | Encounter Summary ---
:1960 Author Organization [facility] [place] [address] Care Team Providers Name Role Phone Conrado Chilel MD Primary Care Provider Encounter Details Date Type Department Care Team Description 08/11/2015 Follow-Up Audiology at [facility] Emely Lewis Unilateral mixed conductive and sensorineural hearing loss; [facility] ALBERT Giron Tinnitus, bilateral; Drive [facility] Ear fullness, [place] [address] AUDIOLOGY [place] [address] Social History Tobacco Use Types Packs/Day Years Used Date Smoking Tobacco: Never Smokeless Tobacco: Never Sex Assigned at Date Recorded Not on file documented as of this encounter Progress Notes Emely Lewis AUD - 08/11/2015 8:27 AM [place] [address] Roxie Morales was seen on 08/11/2015 for an audiologic evaluation in conjunction with Dr. Anaya in Otolaryngology. Please refer to the scanned audiogram listed under Scanned documents for findings, impressions and recommendations. It may take up to 24 hours for the audiogram to be scanned. Emely Godsell, [place] [address] documented in this encounter Plan of Treatment Not on filedocumented as of this encounter Visit Diagnoses Diagnosis Unilateral mixed conductive and sensorin eural hearing loss Tinnitus, bilateral Unspecified tinnitus Ear fullness, bilateral documented in this encounter Care Teams Dry Paste Supervisor Relationship Specialty Start Date End Date Conrado Chilel MD PCP - General 10/20/10 04/27/20 [address] [place] [address] documented as of this encounter
--- OUTSIDE RECORDS SUMMARY | 2022-10-15 00:16 | XMS_ITS | Encounter Summary ---
:1960 Author Organization [facility] [place] [address] Care Team Providers Name Role Phone Conrado Chilel MD Primary Care Provider Encounter Details Date Type Department Care Team Description 05/17/2014 Follow-Up Audiology at [facility] Emely Lewis Sensorineural hearing loss, unilateral (Primary Dx); [facility] ALBERT Giron Tinnitus, bilateral; [facility] Ear fullness, right; [place] [address] [address] Barnard tinnitus, right [phone] AUDIOLOGY [place] [address] Social History Tobacco Use Types Packs/Day Years Used Date Smoking Tobacco: Never Smokeless Tobacco: Never Sex Assigned at Date Recorded Not on file documented as of this encounter Progress Notes Emely Lewis AUD - 05/17/2014 3:59 PM [place] [address] Roxie Morales was seen on 05/17/2014 for an audiologic evaluation in conjunction with Dr. Anaya in Otolaryngology. Please refer to the scanned audiogram listed under Scanned documents for findings, impressions and recommendations. It may take up to 24 hours for the audiogram to be scanned[place] [address] documented in this encounter Plan of Treatment Not on filedocumented as of this encounter Visit Diagnoses Diagnosis Sensorineural hearing loss, unilateral - Primary Tinnitus, bilateral Unspecified tinnitus Ear fullness, right Pulsatile tinnitus, right documented in this encounter Care Teams Sheet Metal Duct Installer Apprentice Relationship Specialty Start Date End Date Conrado Chilel MD PCP - General 10/20/10 04/27/20 [address] [place] [address] documented as of this encounter
--- OUTSIDE RECORDS SUMMARY | 2022-10-15 00:18 | XMS_ITS | Encounter Summary ---
:1960 Author Organization [facility] Address [address] [place] [address] Care Team Providers Name Role Phone Conrado Chilel MD Primary Care Provider Encounter Details Date Type Department Care Team Description 01/14/2020 Lab Requisition [facility] Muriel Gomez for Pathology & MD Rey screening for Laboratory Medicine [address] malignant neoplasm - [place], [place] of colon [address] [facility] [address] [place], [place] [address] Social History Tobacco Use Types Packs/Day Years Used Date Smoking Tobacco: Never Assessed Sex Assigned at Date Recorded Not on file documented as of this encounter Plan of Treatment Not on filedocumented as of this encounter Procedures Procedure Name Priority Date/Time Associated Diagnosis Comme nts SURGICAL PATHOLOGY Today 01/14/2020 9:18 EST Encounter for R esults for this screening for procedure are in malignant neoplasm the resul ts of colon section. documented in this encounter Results SURGICAL PATHOLOGY (01/14/2020 9:18 EST) Component Value Ref Test Analysis Performed At [facility] Range Method Time Signature Final A. COLON, ASCENDING, POLYP, BIOPSY: 12/29 [facility] MEDICAL Electronically Diagnosis - Tubular adenoma. 12:43 EST CENTER s igned by Karsten LABORATORY Geri Rahman MD SERVICES on 01/15/20 20 at 1243 Clinical Screening 01/15/2020 [facility] MEDICAL History 12:43 EST CENTER LABORATORY SERVICES Attestation By the signature 01/15/2020 [facility] MEDICA L Electronically below, the 12:43 EST CENTER signed by Karsten attending eGri Mccall MD physician SERVICES on 01/15/20 at certifies that 1243 they have 1) personally conducted a gross and/or microscopic examination of the described specimen(s), and/or personally interpreted the results of laboratory testing of the described specimen(s), and 2) personally rendered or confirmed the above diagnosis. Gross A. Received in formalin labe lled with proper patient identification (initials B, C) and ascending colon polyp are 2 ruiz nodular tissues averaging 0.2 x 0.2 x 0.2 cm. Entirely submitted in A1. 01/15/20 20 [facility] MEDICAL Description 12:43 EST CENTER Lolis Moncada 01/14/2020 16:38 LABORATORY SERVICES Scanned Images 01/15/2020 [facility] MEDICAL 12:43 [facility] LABORATORY SERVICES Specimen Anatomical Collection Method Collection Time Receive d Time (Source) Location / / Volume Laterality Tissue ASCENDING COLON 01/14/2020 9:18 0 STRUCTURE / EST 16:19 EST Unknown Rey Gomez MD PATHOLOGY ORDERABLES Performing Organization Address City/State/ZIP Code Phon e Number [facility] [address] [place] [address] SERVICES documented in this encounter Visit Diagnoses Diagnosis Encounter for screening for malignant ne oplasm of colon Special screening for malignant neoplasm s, colon documented in this encounter Care Teams Substation Electrician Relationship Specialty Start Date End Date Conrado Chilel MD PCP - General 10/18/15 [address] [place], [place] [id number] documented as of this encounter
--- OUTSIDE RECORDS SUMMARY | 2022-10-15 00:18 | XMS_ITS | Encounter Summary ---
:1960 Author Organization [facility] Address [address] [place] [address] Care Team Providers Name Role Phone Unavailable Primary Care Provider Unavailable Encounter Details Date Type Department Care Team Description 05/13/2004 Results Only [facility] - Jennifer Tabares FNP conversion [address] [place] [address] [place] [address] (Wo rk) Social History Tobacco Use Types Packs/Day Years Used Date Smoking Tobacco: Never Assessed Sex Assigned at Date Recorded Not on file documented as of this encounter Plan of Treatment Not on filedocumented as of this encounter Procedures Procedure Name Priority Date/Time Associated Diagnosis Comme nts CYTOPATHOLOGY Routine 05/13/2004 0:00 EDT Results for this procedure are i n the results section . documented in this encounter Results CYTOPATHOLOGY (05/13/2004 0:00 EDT) Component Value Ref Test Analysis Performed At [facility] Method Time Signature Pathology CYTOPATHOLOGY REPORT [facility] Report: [facility] Reports generated via electronic interface contain original data; however they are lacking the format of the original report. Caution should be taken when reading/interpreting unformatte d reports. Name: ? IRINA TURNER ? Accession #: ? [id number] : ? 1960 (Age: 43) ??F ?Collect Date: ? 05/13/2004 Location: ? [facility] ? Receive Date: ? 05/18/2004 Provider: ?JENNIFER CORONA DIRECTOR REGULATORY COMPLIANCE Copy to: ? Specimen/Source: ?ThinPrep Pap Test, Cervix/Endoce rvix Last Menstrual Period: ? 04/27/2004 Other: ? HPVA - HPV testing requested if ASC-US on the current ThinPr ep Pap test. ? SPECIMEN ADEQUACY ? Satisfactory for Evaluation - transformation zone component present GENERAL CATEGORIZATION ? Negative for Intraepithelial Lesion or Malignancy ? Document reviewed and electronically signed by: ? Mamadou Galloway, SIVAKUMAR(ASCP) ? Report Date: ??05/21/2004 12:39 End of Report Specimen (Source) Anatomical Location Collection Method / Collectio n Time Received Time / Laterality Volume 05/13/2004 05/18/2004 Jennifer Corona DIRECTOR REGULATORY COMPLIANCE PATHOLOGY ORDERABLES Performing Organization Address City/State/ZIP Code Phon e Number [facility] [address] [place] [address] SERVICES [facility] [address] [place] [address] documented in this encounter Visit Diagnoses Not on filedocumented in this encounter
--- OUTSIDE RECORDS SUMMARY | 2022-10-15 00:18 | XMS_ITS | Encounter Summary ---
:1960 Author Organization [facility] Address [address] [place] [address] Care Team Providers Name Role Phone Conrado Chilel MD Primary Care Provider Encounter Details Date Type Department Care Team Description 09/30/2021 Lab Requisition [facility] Outr Resulting Lab, Pathology & Laboratory Provider [facility] [address] [place] [address] Social History Tobacco Use Types Packs/Day Years Used Date Smoking Tobacco: Never Assessed Sex Assigned at Date Recorded Not on file documented as of this encounter Plan of Treatment Not on filedocumented as of this encounter Procedures Procedure Name Priority Date/Time Associated Diagnosis Comme nts FECAL BACTERIAL Routine 09/29/2021 10:45 Results for this PATHOGENS BY PCR EDT procedure a re in the results section. documented in this encounter Results FECAL BACTERIAL PATHOGENS BY PCR (09/29/2021 10:45 EDT) [facility] Method Time Signature Salmonella PCR Negative Negative 09/30/2021 [facility] MEDICAL 20:42 EDT CENTER LABORATORY SERVICES Shigella/Enteroin Negative Negative 09/30/2021 [facility] vasive E. coli 20:42 EDT CENTER LABORATORY SERVICES [facility] Negative Negative 09/30/2021 [facility] CAMPYLOBACTER PCR 20:42 EDT CENTER LABORATORY SERVICES Shiga Toxin PCR Negative Negative 09/30/2021 [facility] MEDICAL 20:42 EDT CENTER LABORATORY SERVICES Specimen Anatomical Collection Method Collection Time Receive d Time (Source) Location / / Volume Laterality Feces SPECIMEN FROM 09/29/2021 10:45 09/30/2021 [facility] / Unknown EDT 16:14 EDT Provider Outr Resulting Lab MICROBIOLOGY - GENERAL ORD ERABLES Performing Organization Address City/State/ZIP Code Phon e Number [facility] [address] [place] [address] SERVICES documented in this encounter Visit Diagnoses Not on filedocumented in this encounter Care Teams Tufting Machine Operator Single Needle Relationship Specialty Start Date End Date Conrado Chilel MD PCP - General 10/18/15 [address] [place], [place] [phone] documented as of this encounter
--- OUTSIDE RECORDS SUMMARY | 2022-10-15 00:18 | XMS_ITS | Encounter Summary ---
:1960 Author Organization [facility] Address [address] [place] [address] Care Team Providers Name Role Phone Unavailable Primary Care Provider Unavailable Encounter Details Date Type Department Care Team Description 07/12/2005 Results Only [facility] Bryant Potts, REHABILITATION SPECIALIST conversion [address] [place] [address] [place] [address] [phone] Social History Tobacco Use Types Packs/Day Years Used Date Smoking Tobacco: Never Assessed Sex Assigned at Date Recorded Not on file documented as of this encounter Plan of Treatment Not on filedocumented as of this encounter Procedures Procedure Name Priority Date/Time Associated Diagnosis Comme nts CYTOPATHOLOGY Routine 07/12/2005 0:00 EDT Results for this procedure are i n the results section . documented in this encounter Results CYTOPATHOLOGY (07/12/2005 0:00 EDT) Component Value Ref Test Analysis Performed At [facility] Method Time Signature Pathology CYTOPATHOLOGY REPORT [facility] Report: [facility] Reports generated via electronic interface contain original data; however they are lacking the format of the original report. Caution should be taken when reading/interpreting unformatte d reports. Name: ? IRINA TURNER ? Accession #: ? [id number] : ? 1960 (Age: 44) ??F ?Collect Date: ? 07/12/2005 Location: ? [facility] ? Receive Date: ? 07/15/2005 Provider: ?BYRANT WOODALL REHABILITATION SPECIALIST Copy to: ? Specimen/Source: ? ThinPrep Pap Test, Cervix/Endocervix, processed on [employer] ThinPrep Imaging System, with manual evaluation Last Menstrual Period: ? 07/01/05 Other: ? HPVA - HPV testing requested if ASC-US on the current ThinPr ep Pap test. ? SPECIMEN ADEQUACY ? Satisfactory for Evaluation - transformation zone component present GENERAL CATEGORIZATION ? Negative for Intraepithelial Lesion or Malignancy ? Document reviewed and electronically signed by: ? Mamadou Galloway, CT(ASCP) ? Report Date: ??07/26/2005 07:07 End of Report Specimen (Source) Anatomical Location Collection Method / Collectio n Time Received Time / Laterality Volume 07/12/2005 07/15/2005 Bryant Woodall NP PATHOLOGY ORDERABLES Performing Organization Address City/State/ZIP Code Phon e Number [facility] [address] [place] [address] SERVICES [facility] [address] [place] [address] documented in this encounter Visit Diagnoses Not on filedocumented in this encounter
--- OUTSIDE RECORDS SUMMARY | 2022-10-15 00:18 | XMS_ITS | Encounter Summary ---
:1960 Author Organization [facility] Address [address] [place] [address] Care Team Providers Name Role Phone Unavailable Primary Care Provider Unavailable Encounter Details Date Type Department Care Team Description 06/18/2015 Results Only [facility]- Dario Ledezma MD [phone] [address] [place] [address] (Wo rk) Social History Tobacco Use Types Packs/Day Years Used Date Smoking Tobacco: Never Assessed Sex Assigned at Date Recorded Not on file documented as of this encounter Plan of Treatment Not on filedocumented as of this encounter Procedures Procedure Name Priority Date/Time Associated Diagnosis Comme nts PAP TEST- RESULT Routine 06/18/2015 0:00 EDT Resu lts for this ONLY procedure are i n the results section. documented in this encounter Results PAP TEST- RESULT ONLY (06/18/2015 0:00 EDT) Component Value Ref Test Analysis Performed At [facility] Range Method Time Signature Pathology CYTOPATHOLOGY REPORT [facility] Report: CENTER Reports generated via electronic interface contain origina l data; LABORATORY however they are lacking the format of the original report. SERVICES Caution should be taken when reading/interpreting unformatte d reports. Name: ? IRINA TURNER ? Accession #: ? [id number] : ? 1960 (Age: [age]) ??F ?Collect Date: ? 06/18/2015 Location: ? [facility] ? Receive Date: ? 06/20/2015 Provider: ?DARIO CLARK MD Copy to: ? Specimen/Source: ? Pap Test, Cervix/Endocervix, ThinPrep Imaging System with manual evaluation Last Menstrual Period: ? SPECIMEN ADEQUACY ? Satisfactory for Evaluation - transformation zone component absent GENERAL CATEGORIZATION ? Negative for Intraepithelial Lesion or Malignancy ? Document reviewed and electronically signed by: ? Kelly Haro, CT(ASCP)(IAC) ? Report Date: ??06/24/2015 16:41 End of Report Specimen (Source) Anatomical Location Collection Method / Collectio n Time Received Time / Laterality Volume 06/18/2015 06/20/2015 Dario Clark MD PATHOLOGY ORDERABLES Performing Organization Address City/State/ZIP Code Phon e Number [facility] [address] [place] [phone] SERVICES documented in this encounter Visit Diagnoses Not on filedocumented in this encounter
--- OUTSIDE RECORDS SUMMARY | 2022-10-15 00:18 | XMS_ITS | Encounter Summary ---
:1960 Author Organization [facility] Address [address] [place] [address] Care Team Providers Name Role Phone Unavailable Primary Care Provider Unavailable Encounter Details Date Type Department Care Team Description 10/01/2011 Results Only [facility] Dario Del Rosario MD [facility] [address] [place] [phone] (Wo rk) Social History Tobacco Use Types Packs/Day Years Used Date Smoking Tobacco: Never Assessed Sex Assigned at Date Recorded Not on file documented as of this encounter Plan of Treatment Not on filedocumented as of this encounter Procedures Procedure Name Priority Date/Time Associated Diagnosis Comme nts PAP TEST- RESULT Routine 10/01/2011 0:00 EDT Resu lts for this ONLY procedure are i n the results section. documented in this encounter Results PAP TEST- RESULT ONLY (10/01/2011 0:00 EDT) Component Value Ref Test Analysis Performed At [facility] Range Method Time Signature Pathology CYTOPATHOLOGY REPORT [facility] Report: [facility] Reports generated via electronic interface contain original data; however they are lacking the format of the original report. Caution should be taken when reading/interpreting unformatte d reports. Name: ? IRINA TURNER ? Accession #: ? [id number] : ? 1960 (Age: 51) ??F ?Collect Date: ? 10/01/2011 Location: ? [facility] ? Receive Date: ? 10/05/2011 Provider: ?DARIO CLARK MD Copy to: ? Specimen/Source: ?Pap Test, En docervix, ThinPrep Imaging System with manual evaluation Last Menstrual Period: ? SPECIMEN ADEQUACY ? Satisfactory for Evaluation - transformation zone component present GENERAL CATEGORIZATION ? Negative for Intraepithelial Lesion or Malignancy ? Document reviewed and electronically signed by: ? SIVAKUMAR Curry(ASCP) ? Report Date: ??10/11/2011 09:06 End of Report Specimen (Source) Anatomical Location Collection Method / Collectio n Time Received Time / Laterality Volume 10/01/2011 10/05/2011 Dario Clark MD PATHOLOGY ORDERABLES Performing Organization Address City/State/ZIP Code Phon e Number [facility] [address] [place] [address] SERVICES [facility] [address] [place] [address] documented in this encounter Visit Diagnoses Not on filedocumented in this encounter
--- OUTSIDE RECORDS SUMMARY | 2022-10-15 00:18 | XMS_ITS | Encounter Summary ---
:1960 Author Organization [facility] Address [address] [place] [address] Care Team Providers Name Role Phone Conrado Chilel MD Primary Care Provider Encounter Details Date Type Department Care Team Description 06/27/2018 Results Only [facility] Naomi Melgoza MD [phone] [facility] [place] [address] (Wo rk) Social History Tobacco Use Types Packs/Day Years Used Date Smoking Tobacco: Never Assessed Sex Assigned at Date Recorded Not on file documented as of this encounter Plan of Treatment Not on filedocumented as of this encounter Procedures Procedure Name Priority Date/Time Associated Diagnosis Comme nts PAP TEST- RESULT Routine 06/27/2018 0:00 EDT Resu lts for this ONLY procedure are i n the results section. documented in this encounter Results PAP TEST- RESULT ONLY (06/27/2018 0:00 EDT) Component Value Ref Test Analysis Performed At [facility] Range Method Time Signature Pathology CYTOPATHOLOGY REPORT [facility] Report: CENTER Reports generated via electronic interface contain origina l data; LABORATORY however they are lacking the format of the original report. SERVICES Caution should be taken when reading/interpreting unformatte d reports. Name: ? ADDISON TURNER ? Accession #: ? [id number] ? : ? 1960 (Age: [age]) ??F ?Collect Date: ? 06/27/2018 ? Location: ? [facility] ? Receive Date: ? 06/28/2018 ? Provider: NAOMI MELGOZA MD Copy to: DARIO HARRIS MD ? Final Report SPECIMEN ADEQUACY ? Satisfactory for Evaluation - transformation zone component present GENERAL CATEGORIZATION ? Negative for Intraepithelial Lesion or Malignancy ?? Hormonal/Contraceptive status: Yes Other: Mica Washer Gluer Clinical/Treatment Hx - None Specimen/Source: ??Pap Test, Cervix/Endocervix, ThinPr ep Imaging System with manual evaluation Document reviewed and electronically signed by: ? Lynda Ortiz, [facility](ASCP) ? Report ??Date: 07/11/2018 14:11 HPV with Pap Test ? Date Ordered: ? 07/11/2018 ? Status: ?? Signed Out ?Date Complete: ? 07/12/2018 ? By: ??System I nterface ? Date Reported: ? 07/12/2018 ? Interpretation RESULT: Negative for HPV. No E6 or E7 mRNA is detected from HPV types 16,18,31,33,35, 39,45,51,52,56,58,59,66, and 68 by grader meat mediated amplification. Comments Document reviewed and electronically signed by: ? System Interface ? Report date: 07/12/2018 By the signature above, the attending physician certifies th at he/she has personally conducted a gross and/or microscopic examin ation of the described specimens and rendered or confirmed the above diagnosis. End of Report Specimen (Source) Anatomical Location Collection Method / Collectio n Time Received Time / Laterality Volume 06/27/2018 06/28/2018 Naomi Melgoza MD PATHOLOGY ORDERABLES Performing Organization Address City/State/ZIP Code Phon e Number [facility] [address] [place] [address] SERVICES documented in this encounter Visit Diagnoses Not on filedocumented in this encounter Care Teams Brake Repair Mechanic Relationship Specialty Start Date End Date Conrado Chilel MD PCP - General 10/18/15 [address] [place] [address] documented as of this encounter
--- OUTSIDE RECORDS SUMMARY | 2022-10-15 00:18 | XMS_ITS | Encounter Summary ---
:1960 Author Organization [facility] Address [address] [place] [address] Care Team Providers Name Role Phone Unavailable Primary Care Provider Unavailable Encounter Details Date Type Department Care Team Description 07/04/2009 Orders Only [facility] Siomara Del Rosario MD [facility] [address] [place] [phone] (Wo rk) Social History Tobacco Use Types Packs/Day Years Used Date Smoking Tobacco: Never Assessed Sex Assigned at Date Recorded Not on file documented as of this encounter Plan of Treatment Not on filedocumented as of this encounter Procedures Procedure Name Priority Date/Time Associated Diagnosis Comme nts CYTOPATHOLOGY Routine 07/04/2009 0:00 EDT Results for this procedure are i n the results section . documented in this encounter Results CYTOPATHOLOGY (07/04/2009 0:00 EDT) Component Value Ref Test Analysis Performed At [facility] Range Method Time Signature Pathology CYTOPATHOLOGY REPORT ? [facility] Report: ? [facility] Reports generated via [employer] interface contain original data; ? however they are lacking the format of the original report. ? Caution should be taken when reading/interpreting unformatted reports. ? Name: ? ADDISON TURNER ? Accession #: ? [id number] ? : ? 1960 (Age: 48) ??F ?Collect Date: ? 07/04/2009 ? Location: ? [facility] ? Receive Date: ? 07/08/2009 ? Provider: ?SIOMARA FIN E MD ? Copy to: ? Specimen/Source: ? Pap Test, Endocervix, ThinPrep Imaging System with ? manual evaluation ? Last Menstrual Period: ? 7/27/09 ? SPECIMEN ADEQUACY ? Satisfactory for Eval uation ? - transformation zone compon ent present ? GENERAL CATEGORIZATION ? Negative for Intraepi thelial Lesion or Malignancy ? Document reviewed and electr onically signed by: ? Jovana Verville,CT(ASCP) ? Report Date: ??07/09/ 2008 15:18 ? End of Report ? Specimen (Source) Anatomical Location Collection Method / Collectio n Time Received Time / Laterality Volume 07/04/2009 07/08/2009 Siomara Clark MD PATHOLOGY ORDERABLES Performing Organization Address City/State/ZIP Code Phon e Number [facility] [address] [place] [address] SERVICES [facility] [address] [place] [address] documented in this encounter Visit Diagnoses Not on filedocumented in this encounter
--- OUTSIDE RECORDS SUMMARY | 2022-10-15 00:18 | XMS_ITS | Clinical Summary ---
:1960 Author Organization [facility] Address [address] [place] [address] Care Team Providers Name Role Phone Conrado Chilel MD Primary Care Provider Social History Tobacco Use Types Packs/Day Years Used Date Smoking Tobacco: Never Assessed Sex Assigned at Date Recorded Not on file Plan of Treatment Health Maintenance Due Date Last Done Comments Hepatitis C Screen 1960 COVID-19 Vaccine (#1) 02/12/1959 Insurance Payer Benefit Plan / Subscriber ID Effective Dates Phone Addre ss Type Group [facility] [id number] 2019-Present [address] [facility] [place] [address] 058 21 Care Teams Overlay Plastician Relationship Specialty Start Date End Date Conrado Chilel MD PCP - General 10/18/15 [address] [place] [address]
--- OUTSIDE RECORDS SUMMARY | 2022-10-15 00:18 | XMS_ITS | Encounter Summary ---
:1960 Author Organization [facility] Address [address] [place] [address] Care Team Providers Name Role Phone Unavailable Primary Care Provider Unavailable Encounter Details Date Type Department Care Team Description 09/25/2002 Results Only [facility] - Jennifer Tabares FNP conversion [address] [place] [address] [place] [address] (Wo rk) Social History Tobacco Use Types Packs/Day Years Used Date Smoking Tobacco: Never Assessed Sex Assigned at Date Recorded Not on file documented as of this encounter Plan of Treatment Not on filedocumented as of this encounter Procedures Procedure Name Priority Date/Time Associated Diagnosis Comme nts CYTOPATHOLOGY Routine 09/25/2002 0:00 EST Results for this procedure are i n the results section . documented in this encounter Results CYTOPATHOLOGY (09/25/2002 0:00 EST) Component Value Ref Test Analysis Performed At [facility] Method Time Signature Pathology CYTOPATHOLOGY REPORT [facility] Report: [facility] Reports generated via electronic interface contain original data; however they are lacking the format of the original report. Caution should be taken when reading/interpreting unformatte d reports. Name: ? IRINA TURNER ? Accession #: ? [id number] : ? 1960 (Age: 42) ??F ?Collect Date: ? 09/25/2002 Location: ? [facility] ? Receive Date: ? 09/28/2002 Provider: ?JENNIFER CORONA WELLNESS NURSE RN Copy to: ? Specimen/Source: ?ThinPrep Pap Test, Cervix/Endoce rvix Last Menstrual Period: ? 08/31/02 ? SPECIMEN ADEQUACY ? Satisfactory for Evaluation - transformation zone component present GENERAL CATEGORIZATION ? Negative for Intraepithelial Lesion or Malignancy ? Document reviewed and electronically signed by: ? SIVAKUMAR Arboleda(ASCP) ? Report Date: ??10/02/2002 14:10 End of Report Specimen (Source) Anatomical Location Collection Method / Collectio n Time Received Time / Laterality Volume 09/25/2002 09/28/2002 Jennifer Corona WELLNESS NURSE RN PATHOLOGY ORDERABLES Performing Organization Address City/State/ZIP Code Phon e Number [facility] [address] [place] [address] SERVICES [facility] [address] [place] [phone] documented in this encounter Visit Diagnoses Not on filedocumented in this encounter
--- OUTSIDE RECORDS SUMMARY | 2022-10-15 00:18 | XMS_ITS | Encounter Summary ---
:1960 Author Organization [facility] Address [address] [place] [address] Care Team Providers Name Role Phone Conrado Chilel MD Primary Care Provider Encounter Details Date Type Department Care Team Description 09/30/2021 Lab Requisition [facility] Outr Resulting Lab, Pathology & Laboratory Provider [facility] [address] [place] [address] Social History Tobacco Use Types Packs/Day Years Used Date Smoking Tobacco: Never Assessed Sex Assigned at Date Recorded Not on file documented as of this encounter Plan of Treatment Not on filedocumented as of this encounter Procedures Procedure Name Priority Date/Time Associated Comments Diagnosis GIARDIA AND Routine 09/29/2021 10:45 Results for this CRYPTOSPORIDIUM ANTIGENS EDT pro cedure are in the results section. OVA/PARASITE EXAM Routine 09/29/2021 10:45 Result s for this EDT procedure are i n the results section. documented in this encounter Results GIARDIA AND CRYPTOSPORIDIUM ANTIGENS (09/29/2021 10:45 EDT) Component Value Ref Range Test Analysis Performed Pathologis t Method Time At Signature Giardia and Cryptosporidium Cryptosporidium UV ME DICAL Cryptosporidium Antigen Neg and Antigen Neg and 1 10:41 CE NTER Giardia Antigen Giardia Antigen EDT LABORATO RY Neg Neg SERVICES Specimen Anatomical Collection Method Collection Time Receive d Time (Source) Location / / Volume Laterality Feces SPECIMEN FROM 09/29/2021 10:45 09/30/2021 [facility] / Unknown EDT 16:14 EDT Provider Outr Resulting Lab MICROBIOLOGY - GENERAL ORD ERABLES Performing Organization Address City/State/ZIP Code Phon e Number [facility] [address] [place] [address] SERVICES OVA/PARASITE EXAM (09/29/2021 10:45 EDT) Patholo gist Method Time Signature Parasite No ova and 10/01/2021 [facility] parasites 10:04 EDT CENTER seen. LABORATORY SERVICES Specimen Anatomical Collection Method Collection Time Receive d Time (Source) Location / / Volume Laterality Feces SPECIMEN FROM 09/29/2021 10:45 09/30/2021 [facility] / Unknown EDT 16:14 EDT Narrative [facility] SERVICES - 10/01/2021 10:04 EDT (If Cryptosporidium, Cyclospora, or Micr osporidium are suspected, specific tests must be requested.) Single negative specimen does not rule out the possibility of a parasitic infection. Provider Outr Resulting Lab MICROBIOLOGY - GENERAL ORD ERABLES Performing Organization Address City/State/ZIP Code Phon e Number [facility] [address] [place] [address] SERVICES documented in this encounter Visit Diagnoses Not on filedocumented in this encounter Care Teams Field Placement Director Relationship Specialty Start Date End Date Conrado Chilel MD PCP - General 10/18/15 [address] [place], [place] [id number] documented as of this encounter
== END ==
PROVIDERS: PCP Nurse Practitioner Family; Visit Provider Family Medicine
DX: Z12.31 Encounter for screening mammogram for malignant neoplasm of breast (principal); R06.02 Shortness of breath; R91.8 Other nonspecific abnormal finding of lung field
CPT/HCPCS: 71250; 77063; 77067; 93306

== ENCOUNTER 2022-11-04 16:36 | Outpatient (REF) | payer BC, SELFPAY ==
--- OUTSIDE RECORDS SUMMARY | 2022-11-04 16:47 | XMS_ITS ---
:[address] 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 with unrestricted hearing of right ear 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 1154 3004 left ear Problem Conductive H90.A12 Active 105326410 hearing loss of left ear with restricted hearing of right ear Problem Otosclerosis 387.2 Active 6305548 4 Problem Cerumen H61.20 Active 89841945 impaction Problem Conductive H90.0 Active 789567590 hearing loss, bilateral Problem Chronic rhinitis J31.0 Active 860 64494 Problem Allergic J30.9 Active 35577031 rhinitis due to allergen ALLERGIES Substance Reaction Event Type Date Status Dicloxacillin Sodium Unknown Drug Allergy Jan, Active ENCOUNTERS Encounter Location Date Diagnosis [place] [address] [facility] 16 Jun, 2022 Dysfunctio n of right Otolaryngology [address] [facility] Sigifredo t ube H69.[address] [place] [id number] [facility] Audiology [address] [place] [address] March, Otosclerosis o f left ear Road [address] H80.92 and Condu ctive [place], [place] hearing loss of left ear [id number] with unrestricte d hearing of right ear H90.[address] Jan, Allergic r hinitis due to Otolaryngology [address] [place], allergen J30 .9 and [place] [id number] Dysfunction of r ight Eustachian tube H69.[address] Jan, Allergic r hinitis due to Otolaryngology [address] [place], allergen J30 .9 [place] [id number] [address] Dec, Postnasal drip R09.82 ; Otolaryngology [address] [place], Chronic rhin itis J31.0 ; [place] [id number] Dysfunction of r ight Eustachian tube H69.81 ; Abnormal lead auditor y perception H93.2 99 ; Nasal ulcer J34. 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 Audiology [address] [place] [address] Feb, Otosclerosis o f left ear Road [address] H80.92 ; Stiff m iddle [place], [place] ear transmission of [id number] right ear, type B H74.8X1 and Righ t chronic serous o titis media H65.[address], [place], [place] [address] Feb, Otolaryngology [address] [place], [place] [id number] [address] 14 Feb, 2021 Right chromium plater roseann serous Otolaryngology [address] [place], otitis media H65.21 and [place] [id number] Otosclerosis of left ear H80.[address] 07 Jun, 2012 Otoscleros is 387.2 ; Otolaryngology [address] [place], Tinnitus NOS 388.30 and [place] [id number] EUSTACHIAN TUBE DIS NEC 381.89 IMMUNIZATIONS No Known Immunizations SOCIAL HISTORY Qualifiers Date Never Smoker REASON FOR REFERRAL FUNCTIONAL STATUS PLAN OF CARE VITAL SIGNS Height 5 ft 6 in in 2022-02-03 Height 5 ft 6 in in 2021-03-11 Weight 200 lbs 2022-02-03 Weight 196 lbs 2021-03-11 Weight 195 lbs 2012-07-04 Heart Rate 74 /min 2022-02-03 Heart Rate 64 /min 2012-07-04 Oximetry 94 2022-02-03 BMI 32.28 kg/m2 2022-02-03 BMI 31.63 kg/m2 2021-03-11 Blood pressure systolic 122 mm Hg 2022-02-03 Blood pressure diastolic 72 mm Hg 2022-02-03 MEDICATIONS Medication Instructions Dosage Frequency Start End Duration Statu s Date Date Fluticasone Nasally Once a 1 spray in 24h 30 day(s) Not-Taki Propionate 50 day each ng MCG/ACT nostril Multivitamins - as directed Not- Taki ng Montelukast TAKE ONE 30 Active Sodium 10 MG TABLET BY MOUTH EVERY EVENING Vitamin D 50 MCG Orally Once a 1 tablet 24h 30 day(s ) Not-Taki (1999) day ng Nasonex 50 Nasally Once a 2 sprays in 24h Dec, day(s) Active MCG/ACT day each 2021 nostril Multivitamins as directed Active henny allergy by mouth once a one tablet 24h Not-Taki 180 mg day ng FLUoxetine HCl Orally Once a 1 capsule 24h 30 day(s) Active 20 MG day PROCEDURES Procedure Date Ordered Result Body Site PRICK TESTS February 03, 2022 COMPREHENSIVE AUDIOMET THRESH AND SPEECH March 29, 2022 COMPREHENSIVE AUDIOMET THRESH AND SPEECH March 24, 2021 TYMPANOMETRY (IMPEDANCE TESTING) March 29, 2022 INTRADERMAL TESTS February 03, 2022 TYMPANOMETRY (IMPEDANCE TESTING) March 24, 2021 CERUMEN DEBRIDE - UNILATERIAL Jan 25, 2022 CERUMEN DEBRIDE - UNILATERIAL April 03, 2021 CERUMEN DEBRIDE - UNILATERIAL Jan 25, 2022 CERUMEN DEBRIDE - UNILATERIAL April 03, 2021 RESULTS No Results REASON FOR VISIT AUD AUDIOGRAM, Singulair RF, aud audiogram/check HOANG, ENT DISCUSS ALLERGY, Environmental Testing, ENTALLERGY TEST REVIEW AND MEDICATION QUESTIONS, TeleHealth Est Visit, Pt has agree to telehealth vist to todays complaints, Environmental Testing, PFP Allergy Test, ENT- ETD worsens during allergy season, PFP Est Patient (L), PFP allergy discussion. , ENT- ETD worsens during allergy season, PFP Est Patient (L), ENT DISCUSS ALLERGY. , AUD testing, ENT RECHECK EAR, PFP Est Patient (L), ent f/u from hearing test, PFP EST PATIENT (S), PFP Cerumen, Needs call back from office, AUD-PFP, records, records, ENT-right middle ear effusion, pfp New Consult, ENT-right middle ear effusion, continued right ear blockage, requesting allergy testing, ENT EAR PRESSURE, 2nd opinion Insurance Providers [facility] Health Member Patient Patient Patient Patient Patient Subscriber Subscriber Subscriber Group Insurance Plan Plan Plan Plan ID Relationship Address Phone Name Date of ID Name Date of No Type Insurance Insurance Insurance Coverage to Subscriber Address Phone Name Dates [place] [phone] [place] self Catharin [id number] [id number] [address] [place] [address]
[2022-11-04 17:27] LABS: ALT 145 U/L (14-59); AST 68 U/L (15-37); Albumin 3.9 g/dL (3.4-5.0); Alkaline Phosphatase 115 U/L (46-116); Bilirubin, Total 0.4 mg/dL (0.2-1.0); Calculated LDL 163 mg/dL (<100); Cholesterol 253 mg/dL (<200); HDL Cholesterol 38 mg/dL (40-60); TSH (W/Ref FT4) 4.22 uIU/mL (0.36-3.74); Total Protein 7.4 g/dL (6.4-8.2); Triglyceride 262 mg/dL (<150); Vitamin B12 566 pg/mL (193-986)
[2022-11-04 17:46] LABS: Bilirubin, Direct 0.1 mg/dL (0.0-0.2); FREE T4 0.94 ng/dL (0.76-1.46)
== END 2022-11-04 16:37 | disposition home or self-care (01) ==
LOC: NCHCN 16:36
PROVIDERS: PCP Nurse Practitioner Family; Visit Provider Nurse Practitioner Family
DX: R53.83 Other fatigue (principal); E78.00 Pure hypercholesterolemia, unspecified; F32.89 Other specified depressive episodes
CPT/HCPCS: 80061; 80076; 82607; 84439; 84443

== ENCOUNTER 2022-11-30 11:21 | Outpatient (REF) | payer BC, SELFPAY ==
[2022-12-01 11:12] LABS: Hepatitis A Antibody IgM Negative (Negative); Hepatitis B Core Antibody Negative (Negative); Hepatitis B surface Ag Negative (Negative); Hepatitis C Ab w Rflx HCV PCR Negative (Negative)
== END 2022-11-30 11:22 | disposition home or self-care (01) ==
LOC: NCHCN 11:21
PROVIDERS: PCP Nurse Practitioner Family; Visit Provider Nurse Practitioner Family
DX: R53.83 Other fatigue (principal)
CPT/HCPCS: 86704; 86709; 86803; 87340

== ENCOUNTER 2023-02-02 14:12 | Outpatient (REF) | payer BC, SELFPAY ==
[2023-02-02 17:29] LABS: Rheumatoid Factor <8.6 IU/mL (<12.0)
[2023-02-03 10:20] LABS: Cyclic Citrullinated Peptide <2.5 U/mL (<5.0)
[2023-02-03 14:30] LABS: ANA Interpretation Positive (Negative); ANA Titer Pattern 1:320 Homogeneous
== END 2023-02-02 14:13 | disposition home or self-care (01) ==
LOC: LBN 14:12
PROVIDERS: PCP Nurse Practitioner Family; Visit Provider Student in an Organized Health Care Education/Training Program
DX: J84.9 Interstitial pulmonary disease, unspecified (principal)
CPT/HCPCS: 86200; 86038; 86431

== ENCOUNTER 2023-02-10 12:58 | Outpatient (CLI) | payer BC, SELFPAY ==
--- NOTE | 2023-02-17 14:10 | W.PFT ---
Date of service: 02/10/23 Time of Service: 22:56 Pulmonary Function Test Result Indications: Nocturnal hypoxia Note: Overnight Oximetry Amount of time analyzed: 8 hours 37 minutes Number of minutes under 88%: 83.7 min FATMATA: 2.4 Appearance of oxygen saturation pattern: sharp increases and decreases consistent with sleep apnea Recommendation: start CPAP and retest after therapy initiated Coby Navarro MD Pulmonary & Critical Care Medicine Clinical Correlation therefore is recommended.
== END 2023-02-10 12:59 | disposition home or self-care (01) ==
PROVIDERS: PCP Nurse Practitioner Family; Visit Provider Student in an Organized Health Care Education/Training Program
DX: G47.30 Sleep apnea, unspecified (principal)
CPT/HCPCS: 94762

== ENCOUNTER 2023-04-05 10:32 | Outpatient (CLI) | payer BC, SELFPAY ==
[2023-04-06 18:39] LABS: Scl 70 Antibodies, IgG <0.2 U
[2023-04-08 14:54] LABS: SS-B (La) Ab, IgG 2.2 Units (<20.0)
[2023-04-08 15:06] LABS: dsDNA Ab, IgG <12.3 IU/mL (<30.0)
[2023-04-08 16:15] LABS: SS-A Antibody 1.4 Units (<20.0)
[2023-04-27 17:10] LABS: Anti-EJ Ab Negative (Negative); Anti-Jo-1 Ab <20 Units (<20); Anti-Ku Ab Negative (Negative); Anti-MDA-5 Ab (CADM-140) <20 Units (<20); Anti-Mi-2-Ab Negative (Negative); Anti-NXP-2 (P140) Ab <20 Units (<20); Anti-OJ Ab Negative (Negative); Anti-PL-12 Ab Negative (Negative); Anti-PL-7 Ab Negative (Negative); Anti-PM/Scl-100 Ab <20 Units (<20); Anti-SRP Ab Negative (Negative); Anti-SS-A 52kD Ab, IgG <20 Units (<20); Anti-TIF-1gamma Ab <20 Units (<20); Anti-U1 RNP Ab <20 Units (<20); Anti-U2 RNP Ab Negative (Negative); Anti-U3 RNP (Fibrillarin) Negative (Negative)
== END 2023-04-05 10:33 | disposition home or self-care (01) ==
LOC: PUL 10:33
PROVIDERS: PCP Nurse Practitioner Family; Visit Provider Student in an Organized Health Care Education/Training Program
DX: J84.9 Interstitial pulmonary disease, unspecified (principal); G47.34 Idiopathic sleep related nonobstructive alveolar hypoventilation
CPT/HCPCS: 83516; 86235; 86225

== ENCOUNTER 2023-04-26 04:22 | Outpatient (CLI) | payer BC, SELFPAY ==
--- NOTE | 2023-05-19 15:59 | W.PFT ---
Date of service: 05/19/23 Time of Service: 13:07 Pulmonary Function Test Result Indications: ILD Interpretation Spirometry: There is no airflow limitation. No significant bronchodilator response. Low FVC, likely pseudo-restriction from obesity Lung Volumes: Normal lung volumes Diffusion Capacity: Decreased diffusion Airway Pressure: Normal airways resistance Impression Decreased diffusion. Note: As compared to 08/23/22 lung function is stable and lung volumes improved. Clinical Correlation therefore is recommended.
== END 2023-04-26 04:23 | disposition home or self-care (01) ==
LOC: RT 04:22
PROVIDERS: PCP Nurse Practitioner Family; Visit Provider Student in an Organized Health Care Education/Training Program

== ENCOUNTER 2023-05-19 02:25 | Outpatient (CLI) | payer BC, SELFPAY ==
[2023-05-19] MEDS: Inhaler, Assist Device 1 EACH MC (14:18)
[2023-05-19] MEDS: Albuterol HFA 18 GM 200 PUFF INH IH (14:18)
--- NOTE | 2023-05-20 15:37 | W.NOCTURNAL ---
Date of service: 05/19/23 Time of Service: 23:17 Nocturnal Oximetry Note: Overnight Oximetry Amount of time analyzed: 8 hours 41 minutes on CPAP 8-14, FiO2 21% Number of minutes under 88%: 14.7 FATMATA:0.9 Appearance of oxygen saturation pattern:Gradual decreases consistent with cardiac or pulmonary disease. Recommendation: recommend administration of 1-2LPM bleed through CPAP machine Coby Navarro MD Pulmonary & Critical Care Medicine
== END 2023-05-19 02:26 | disposition home or self-care (01) ==
LOC: RT 02:25
PROVIDERS: PCP Nurse Practitioner Family; Visit Provider Student in an Organized Health Care Education/Training Program
DX: R53.83 Other fatigue (principal); R09.02 Hypoxemia
CPT/HCPCS: 94060; 94726; 94729; 94762

== ENCOUNTER 2023-05-26 12:28 | Outpatient (REF) | payer BC, SELFPAY | END 2023-05-26 12:29 | disposition home or self-care (01) | LOC: NCHCN 12:28 | PROVIDERS: PCP Nurse Practitioner Family; Visit Provider Family Medicine | DX: R30.0 Dysuria (principal) | CPT/HCPCS: 87077; 87086; 87186 ==

== ENCOUNTER 2023-09-20 11:16 | Outpatient (REF) | payer MEDICARE, SELFPAY ==
--- NOTE | 2023-09-20 10:15 | PAPFT_PTH ---
PATIENT: Roxie Morales LOC: [facility]#:[id number] AGE/SX: 63/F ROOM: RE09/20/[address]: Marilou Velasquez : 1960 BED: DIS: 09/20/2023 SPEC #: [id number] RECD: 09/21/23 13:09 STATUS: DANIAL RESotero #: [id number] JYOTI: 09/20/23 10:[address]: Marilou Velasquez DEPT: [facility] Cytology RECD BY: Dai Tim Tissues: 1 - CX/ENDOCX FOR PAP SMEARS Procedures: PAP THIN PREP/UVM Screening HPV DNA PROBE Comments: [id number]
[2023-09-20 15:28] LABS: HGB 15.9 g/dL (11.2-15.7); MCH 33.7 pg (27.0-33.0); MCHC 34.6 % (32.0-36.0); MCV 98 fL (80-95); Platelet Count 259 10^3/uL (130-400); RBC 4.72 10^6/uL (3.93-5.22); RDW 12.3 % (11.7-14.6); RDW-SD 44.5 fL; WBC 9.24 10^3/uL (4.4-10.8)
[2023-09-20 15:51] LABS: ALT 198 U/L (14-59); AST 144 U/L (15-37); Albumin 3.7 g/dL (3.4-5.0); Alkaline Phosphatase 113 U/L (46-116); Anion Gap 11.6 mmol/L (3-11); BUN 15 mg/dL (7-18); Bilirubin, Total 0.5 mg/dL (0.2-1.0); CO2 24.4 mmol/L (21.0-32.0); CREATININE 0.8 mg/dL (0.55-1.02); Calcium 9.3 mg/dL (8.5-10.1); Calculated LDL 173 mg/dL (<100); Chloride 105 mmol/L (98-107); Cholesterol 276 mg/dL (<200); Estimated GFR 81.72 (mL/min/1.73m2); Glucose 99 mg/dL (74-106); HDL Cholesterol 37 mg/dL (40-60); Potassium 4.3 mmol/L (3.5-5.1); Sodium 141 mmol/L (136-145); TSH (W/Ref FT4) 2.69 uIU/mL (0.36-3.74); Total Protein 7.6 g/dL (6.4-8.2); Triglyceride 333 mg/dL (<150)
== END 2023-09-20 11:17 | disposition home or self-care (01) ==
LOC: NCHCN 11:16
PROVIDERS: PCP Nurse Practitioner Family; Visit Provider Nurse Practitioner Family
DX: E66.9 Obesity, unspecified (principal); R53.83 Other fatigue; Z12.4 Encounter for screening for malignant neoplasm of cervix; Z11.51 Encounter for screening for human papillomavirus (HPV)
CPT/HCPCS: 80053; 80061; 85027; 88142; 84443; 87624

== ENCOUNTER → 2023-10-03 00:42 | Outpatient (CLI) | payer MEDICARE, SELFPAY ==
--- NOTE | 2023-10-03 | DI.US_ITS ---
Exam(s) US ABDOMEN EXAM: US ABDOMEN CLINICAL HISTORY: ELEVATED LIVER ENZYMES R74.8 TECHNIQUE: Ultrasound abdomen performed using standard protocol. COMPARISON: US PELVIS TRANSVAG from 10/14/2011 FINDINGS: ABDOMINAL AORTA AND IVC: Visualized portions normal caliber. PANCREAS: Normal where visualized. LIVER: There is increased echogenicity of the liver consistent with fatty infiltration. The liver me asures 19 cm long. Hepatopedal flow in the Portal Vein. GALLBLADDER:No evidence of cholelithiasis. No evidence of wall thickening. No pericholecystic fluid i dentified. BILIARY SYSTEM: Common bile duct measures < 7 mm. No intrahepatic biliary ductal dilation. DICKINSON'S SIGN: Negative. KIDNEYS: Right kidney is not visualized. The left kidney is unremarkable. No evidence of renal calc oneal. No evidence of hydronephrosis. No renal mass or cyst identified. SPLEEN: Not enlarged. ASCITES: None seen. IMPRESSION: 1. Hepatomegaly and hepatic steatosis. 2. The right kidney is again not visualized. The left kidney is unremarkable. DATA REPOSITORY:
== END ==
PROVIDERS: PCP Nurse Practitioner Family; Visit Provider Nurse Practitioner Family
DX: R16.0 Hepatomegaly, not elsewhere classified (principal); K76.0 Fatty (change of) liver, not elsewhere classified
CPT/HCPCS: 76700

== ENCOUNTER → 2023-10-05 00:41 | Outpatient (CLI) | payer MEDICARE, SELFPAY ==
--- NOTE | 2023-10-05 07:15 | DI.RAD_ITS ---
Exam(s) XR FOOT RT COMPLETE EXAM: XR FOOT RT COMPLETE CLINICAL HISTORY: Right foot pain,M79.671. TECHNIQUE: 2D digital imaging was performed of the right foot. Three images were obtained. AP, obl ique and lateral views were obtained. COMPARISON: CR XR foot RT complete from 09/28/2018 FINDINGS: BONES: No acute fracture is present. No bony destructive lesion is seen. JOINTS: No dislocation present. There are mild degenerative changes seen at the tarsometatarsal joint s. SOFT TISSUE: Normal. IMPRESSION: Mild degenerative changes seen at the tarsometatarsal joints particularly the 3rd and 4th TMT. DATA REPOSITORY: RADIATION DOSE DELIVERED:
== END ==
PROVIDERS: PCP Nurse Practitioner Family; Visit Provider Podiatrist
DX: M19.071 Primary osteoarthritis, right ankle and foot (principal); M72.2 Plantar fascial fibromatosis
CPT/HCPCS: 20550; 73630

== ENCOUNTER → 2023-10-17 02:22 | Outpatient (CLI) | payer MEDICARE, SELFPAY ==
--- NOTE | 2023-10-17 12:45 | DI.MAMMO_ITS ---
Exam(s) MAMMO SCREENING EXAM: MAMMO SCREENING CLINICAL HISTORY: SCREENING, Z12.39 TECHNIQUE: Mammograms were interpreted according to the usual protocol including computer analysis w Help/Systems CAD system, tomosynthesis and C-view imaging. COMPARISON: 2012 through 2021 FINDINGS: The breasts are composed of scattered fibroglandular densities, Breast Density category B. No suspicious masses or suspicious microcalcifications are seen. No skin thickening or abnormal axillary lymph nodes are seen. There has been no significant change from prior exams. IMPRESSION: BI-RADS Category 1, Negative mammogram Yearly screening mammography is recommended. Breast Density - Category B, scattered fibroglandular densities. A negative radiographic report should not delay biopsy if a dominant or clinically suspicious mass is present. Up to ten percent of cancers are not identified on mammography. A negative report may reinforce clinical impression. Adenosis and dense breasts may obscure an underlying neoplasm. False positive reports average 6 to 10%. Patient will receive a letter notifying them of these results.
== END ==
PROVIDERS: PCP Nurse Practitioner Family; Visit Provider Nurse Practitioner Family
DX: Z12.31 Encounter for screening mammogram for malignant neoplasm of breast (principal)
CPT/HCPCS: 77063; 77067

== ENCOUNTER → 2023-10-26 08:41 | Outpatient (BNVA) | payer MEDICARE, SELFPAY | PROVIDERS: PCP Nurse Practitioner Family; Referring Provider Nurse Practitioner Family; Visit Provider Podiatrist | DX: M72.2 Plantar fascial fibromatosis (principal); M79.671 Pain in right foot; M67.01 Short Achilles tendon (acquired), right ankle; M20.41 Other hammer toe(s) (acquired), right foot | CPT/HCPCS: 20550; J0702 ==

== ENCOUNTER → 2023-12-06 14:20 | Outpatient (BNVA) | payer MEDICARE, SELFPAY | PROVIDERS: PCP Nurse Practitioner Family; Referring Provider Nurse Practitioner Family; Visit Provider Physician Assistant Surgical | DX: J84.9 Interstitial pulmonary disease, unspecified (principal); G47.34 Idiopathic sleep related nonobstructive alveolar hypoventilation | CPT/HCPCS: 99214 ==

== ENCOUNTER → 2024-01-05 15:24 | Outpatient (BNVA) | payer MEDICARE, SELFPAY | PROVIDERS: PCP Nurse Practitioner Family; Referring Provider Nurse Practitioner Family; Visit Provider Podiatrist | DX: M72.2 Plantar fascial fibromatosis; M76.61 Achilles tendinitis, right leg; M79.671 Pain in right foot; M67.01 Short Achilles tendon (acquired), right ankle; M20.41 Other hammer toe(s) (acquired), right foot | CPT/HCPCS: 99213 ==

== ENCOUNTER → 2024-03-08 14:30 | Outpatient (BNVA) | payer MEDICARE, SELFPAY | PROVIDERS: PCP Nurse Practitioner Family; Referring Provider Nurse Practitioner Family; Visit Provider Podiatrist | DX: M72.2 Plantar fascial fibromatosis; M79.672 Pain in left foot; M79.671 Pain in right foot; M67.01 Short Achilles tendon (acquired), right ankle; M20.41 Other hammer toe(s) (acquired), right foot; M25.571 Pain in right ankle and joints of right foot; M25.572 Pain in left ankle and joints of left foot | CPT/HCPCS: 99213 ==

== ENCOUNTER 2024-03-29 05:06 | Outpatient (CLI) | payer MEDICARE, SELFPAY ==
[2024-03-29 11:14] LABS: ALT 50 U/L (14-59); AST 26 U/L (15-37); Albumin 3.7 g/dL (3.4-5.0); Alkaline Phosphatase 104 U/L (46-116); Bilirubin, Direct 0.1 mg/dL (0.0-0.2); Bilirubin, Total 0.5 mg/dL (0.2-1.0); Total Protein 7.7 g/dL (6.4-8.2)
[2024-03-29 11:28] LABS: Calculated LDL 162 mg/dL (<100); Cholesterol 257 mg/dL (<200); HDL Cholesterol 38 mg/dL (40-60); Triglyceride 289 mg/dL (<150)
== END 2024-03-29 05:07 | disposition home or self-care (01) ==
PROVIDERS: PCP Nurse Practitioner Family; Visit Provider Nurse Practitioner Family
DX: E78.00 Pure hypercholesterolemia, unspecified (principal); R73.03 Prediabetes
CPT/HCPCS: 36415; 80061; 80076; 83036

== ENCOUNTER → 2024-04-16 01:47 | Outpatient (CLI) | payer MEDICARE, SELFPAY ==
--- NOTE | 2024-04-16 | DI.US_ITS ---
Exam(s) US PELVIS TRANSVAGINAL EXAM: US PELVIS TRANSVAGINAL CLINICAL HISTORY: N93.9 ABN uterine and vaginal bleeding TECHNIQUE: Ultrasound of the pelvis was performed both transabdominal and transvaginal. COMPARISON: US US ABDOMEN from 10/03/2023 FINDINGS: UTERUS: Nongravid and anteverted Measures 7.6 cm length x 2.9 cm AP x 5.4 cm wide. There are no uterine fibroids. Endometrial thickness measures 5-9 mm. There is no fluid in the endometrial canal. CERVIX: There are no obvious nabothian cysts. RIGHT OVARY: Not able to be visualized LEFT OVARY: Also not able to be visualized CUL-DE-SAC: No free fluid evident. IMPRESSION: 1. Slightly thickened endometrium for this age group. Requires appropriate follow-up. There is no o bvious fluid in the endometrial canal. No uterine fibroids. 2. Both ovaries were not visualized on the present study. 3. No free fluid evident in the adnexal regions and cul-de-sac. DATA REPOSITORY:
== END ==
PROVIDERS: PCP Nurse Practitioner Family; Visit Provider Nurse Practitioner Family
DX: N93.9 Abnormal uterine and vaginal bleeding, unspecified (principal)
CPT/HCPCS: 76830; 76856

== ENCOUNTER 2024-05-17 14:00 | Outpatient (REF) | payer MEDICARE, SELFPAY ==
--- NOTE | 2024-05-17 13:40 | ENDOMET_PTH ---
PATIENT: Roxie Morales LOC: [facility] U#:[id number] AGE/SX: 63/F ROOM: RE05/17/[address]: Suha Jones DO : 1960 BED: DIS: 05/17/2024 SPEC #: [id number] RECD: 05/17/24 16:17 STATUS: DANIAL REQ #: [id number] JYOTI: 05/17/24 13:[address]: Suha Jones DEPT: Surgical Specimen RECD BY: Dai Tim ENTERED: 05/17/24 16:18 SP TYPE: Endomet OTHR DR: Marilou Velasquez Tissues: 1 - ENDOMETRIUM BX/JENAE Procedures: GROSS AND MICRO LEVEL 4 Comments: [id number]
== END 2024-05-17 14:01 | disposition home or self-care (01) ==
LOC: LBN 14:00
PROVIDERS: PCP Nurse Practitioner Family; Visit Provider Obstetrics & Gynecology
DX: Z78.0 Asymptomatic menopausal state (principal)
CPT/HCPCS: 88305

== ENCOUNTER → 2024-06-11 08:20 | Outpatient (BNVA) | payer MEDICARE, SELFPAY | PROVIDERS: PCP Nurse Practitioner Family; Referring Provider Nurse Practitioner Family; Visit Provider Internal Medicine Critical Care Medicine | DX: J84.9 Interstitial pulmonary disease, unspecified (principal); G47.33 Obstructive sleep apnea (adult) (pediatric); R00.2 Palpitations; R06.83 Snoring | CPT/HCPCS: 99215 ==

== ENCOUNTER 2024-06-14 02:48 | Outpatient (CLI) | payer MEDICARE, SELFPAY ==
[2024-06-14] MEDS: Albuterol HFA 18 GM 200 PUFF INH IH (12:38)
[2024-06-14] MEDS: Methacholine 100 MG VIAL IH (12:39)
[2024-06-14] MEDS: Inhaler, Assist Device 1 EACH MC (12:39)
--- NOTE | 2024-06-19 15:17 | W.PFT ---
Date of service: 06/14/24 Time of Service: 10:04 Pulmonary Function Test Result Requesting Provider Meri Samayoa Indications: REY Interpretation Spirometry: Normal FEV1/FVC but decreased FEV1 and FVC. Lung Volumes: Moderate decrease in lung volumes Diffusion Capacity: Mildly decreased. Impression Pulmonary function test Normal FEV1/FVC at 77%. Moderate decrease in FEV1 70% and FVC 68. Lung volumes showed moderate restriction mild decrease in SVC is 76%. Moderate decrease in diffusion at 60%. Suggest at least restrictive disease. Methacholine challenge Baseline FEV1 of 1.7 L. Patient receives incremental doses of methacholine and demonstrated 23% decrease in FEV1 after receiving 4mg/ml of methacholine patient was reversed after albuterol. Impression Positive study Clinical Correlation therefore is recommended.
--- NOTE | 2024-06-21 13:08 | W.NOCTURNAL ---
Date of service: 06/14/24 Time of Service: 13:08 Nocturnal Oximetry Note: Overnight Oximetry on Bipap and RA. Pt demonstrated no desaturation requiring supplemental O2.
== END 2024-06-14 02:49 | disposition home or self-care (01) ==
LOC: RT 02:48
PROVIDERS: PCP Nurse Practitioner Family; Visit Provider Internal Medicine Critical Care Medicine
DX: R06.09 Other forms of dyspnea (principal); J84.9 Interstitial pulmonary disease, unspecified
CPT/HCPCS: 00123; 94060; 94070; 94726; 94729; 94010; J7674

== ENCOUNTER → 2024-06-19 01:09 | Outpatient (CLI) | payer MEDICARE, SELFPAY ==
--- NOTE | 2024-06-19 06:15 | DI.US_ITS ---
APPROVED REPORT EXAM: Comprehensive 2D, Doppler, and color-flow Echocardiogram Patient Location: Out-Patient Skate Hop: Ayesha Cruz RDCS (AE) Indications: Dyspnea, Chest pain Other Information Study Quality: Adequate Conclusion Normal left ventricular wall thickness and chamber size. Ejection fraction is 60%. Wall motion is n ormal Normal right ventricular size and function Both atria are normal in size There is no structural or hemodynamically significant valvular disease Right ventricular systolic pressure could not be estimated Wall motion Left Ventricle The left ventricle is normal size. The left ventricular systolic function is normal. The left ventric ular ejection fraction is within the normal range. There is normal left ventricular wall thickness. T here is normal LV segmental wall motion. There is no ventricular septal defect visualized. LVEF is 60 %. Right Ventricle Right ventricle is grossly normal in size. The right ventricular systolic function is normal. Atria The left atrium size is normal. The right atrium size is normal. The interatrial septum is intact wit h no evidence for an atrial septal defect. Aortic Valve The aortic valve is normal in structure. Aortic valve is trileaflet. There is no aortic valvular sten osis. No aortic regurgitation is present. Mitral Valve The mitral valve is normal in structure. No evidence of mitral valve stenosis. Trace mitral regurgita tion. Tricuspid Valve The tricuspid valve is normal in structure. There is no tricuspid valve stenosis. Trace tricuspid reg urgitation. Unable to assess PA pressure. Pulmonic Valve The pulmonary valve is normal in structure. There is no pulmonic valvular stenosis. Trace pulmonic re gurgitation. Great Vessels The aortic root is normal in size. The ascending aorta is normal in size. Aortic arch is not well vis ualized. IVC is normal in size and collapses >50% with inspiration. Pericardium Trivial pericardial effusion. 2D Dimensions IVSD d PLAX 0.91 cm F: 0.6-1.0 Ao Root d 2.60 cm F: 2.7 - 3.3 LVPW d PLAX 0.95 cm F: 0.6 - 1.0 Ao Asc Diam d 2.94 cm F: 2.3 - 3.1 LVID d PLAX 4.94 cm F: 3.8 - 5.2 LVDs 3.36 cm F: 2.2 - 3.5 LV EF Teichholz 59.8 % FS 31.92 % LV EDV (Teich) 114.9 mL LV ESV (Teich) 46.2 mL M-Mode TAPSE 2.34 cm (M/F) >1.7 Auto EF LV EDV A4C 113.7 mL LV EDV A2C 90.8 mL LV EDV BP 102.1 mL LV ESV A4C 49.8 mL LV ESV A2C 37.6 mL LV ESV BP 43.6 mL LVEF(%) A4C 56.3 % LVEF(%) A2C 58.6 % LVEF(%) BP 57.4 % LV SV A4C 64.0 ml LV SV A2C 53.2 ml LV SV BP 58.6 ml LV CO A4C 3.7 L/min LV CO A2C 3.0 L/min LV CO BP 3.3 L/min HR A4C 57.60 BPM HR A2C 56.52 BPM LV EDV Index (BP) LA Volume LA Length A4C 6.0 cm LA Length A2C 5.6 cm LA Area A4C s 19.75 cm2 LA Area A2C s 19.53 cm2 LA Vol A4C A-L 55.03 mL LA Vol A2C A-L 58.15 mL LA Vol Biplane A-L 58.8 mL LA Vol/BSA A4C A-L LA Vol/BSA A2C A-L LA Vol/BSA BP A-L 29.1 mL/m2 LA Vol A4C MOD 51.7 mL LA Vol A2C MOD 54.3 mL LA Vol BP MOD 54.9 mL RA Volume RA Area A4C 13.4 cm2 RA ESV A4C (A-L) 28.9mL RA Vol/BSA A4C A-L RA Length A4C 5.2 cm RA ESV A4C (MOD) 29.0mL LV Diastology MV E' medial 0.107 (>0.07 m/s) MV E Vmax 0.79 (0.4-1.3 m/s) MV E/E' MED 7.37 (<14) MV A Vmax 0.90 (0.4-1.3 m/s) MV E' lateral 0.085 (>0.1 m/s) E/A Ratio 0.9 MV E/E' LAT 9.30 (<14) MV E' Average 0.096 m/s MV E/E'(average) 8.22 Aortic Valve AoV Vmax 1.34 m/s LVOT Vmax 1.07 m/s AoV Peak Grad 7.1 mmHg LVOT Peak Grad 4.6 mmHg AoV Area (Vmax) 2.39 cm2 LVOT VTI 0.257 m AoV VTI 0.316 m LVOT Mean Grad 2.6 mmHg AoV Mean Mohit. 0.93 m/s LVOT SV 76.54 mL AoV Mean Grad 4.0 mmHg LVOT Diam s 1.90 cm AoV Area (VTI) 2.42 cm2 Velocity Ratio 0.80 Mitral Valve MV DT 187 (160-240 msec) MV Vmax TIPS 0.85 m/s MV Mean Grad 1.2 (<2mmHg) MV VTI 0.317 m Pulmonary Valve PV Vmax 0.90 (0.5-1.5 m/s) RVOT Vmax 0.77 m/s PV Peak Grad 3.2 mmHg RVOT Peak Gr. 2.4 mmHg PV Mean Mohit 0.68 m/s RVOT VTI 0.193 m PV Mean Grad 2.1 mmHg RVOT Mean Gr. 1.4 mmHg Tricuspid Valve TV S' 0.14 m/s
== END ==
PROVIDERS: PCP Nurse Practitioner Family; Visit Provider Internal Medicine Critical Care Medicine
DX: R07.9 Chest pain, unspecified (principal)
CPT/HCPCS: 93306

== ENCOUNTER 2024-06-19 01:27 | Outpatient (CLI) | payer MEDICARE, SELFPAY ==
[2024-06-19 11:33] LABS: Abs Immature Grans 0.02 10^3/uL (0.0-0.06); Absolute Basophil Count 0.05 10^3/uL (0.0-0.2); Absolute Eosinophil Count 0.16 10^3/uL (0.0-0.7); Absolute Monocyte Count 0.72 10^3/uL (0.1-0.8); Absolute Neutrophil Count 4.96 10^3/uL (1.2-6.7); Basophils % 0.6 %; Eosinophils % 1.9 %; HGB 14.6 g/dL (11.2-15.7); Immature Grans % 0.2 %; Lymphocytes % 28.9 %; MCH 33.6 pg (27.0-33.0); MCHC 35.6 % (32.0-36.0); MCV 95 fL (80-95); MPV 11.1 fL (8.0-11.0); Monocytes % 8.7 %; Neutrophils % 59.7 %; Platelet Count 252 10^3/uL (130-400); RBC 4.34 10^6/uL (3.93-5.22); RDW 12.5 % (11.7-14.6); RDW-SD 43.3 fL; WBC 8.31 10^3/uL (4.4-10.8)
[2024-06-19 11:52] LABS: TSH 2.91 uIU/Ml (0.36-3.74)
== END 2024-06-19 01:28 | disposition home or self-care (01) ==
LOC: LBO 01:27
PROVIDERS: PCP Nurse Practitioner Family; Visit Provider Obstetrics & Gynecology
DX: Z01.818 Encounter for other preprocedural examination (principal); R06.00 Dyspnea, unspecified; R07.9 Chest pain, unspecified
CPT/HCPCS: 36415; 86850; 86900; 86901; 84443; 85025

== ENCOUNTER 2024-06-20 07:09 | Day surgery (SDC) | payer MEDICARE, SELFPAY ==
[2024-06-20 07:34] VITALS: BP 128/76; PULSE 67; RESP 16; TEMP 36.6; O2SAT 94
[2024-06-20] MEDS: Normal Saline 1,000 ML 125 ML IV (07:54)
--- NOTE | 2024-06-20 07:59 | W.ANESPRE ---
General Info Date of Service Date Performed: 06/20/24 Height: 5 ft 5 in Weight: 95.7 kg Body Mass Index (BMI): 35.1 Surgical Procedure: Operation Date: 06/20/24 08:55 Proposed Procedure Side Surgeon p Dilation & Curettage with Hysteroscopy Suha Jones DO Meds Allergies and Home Medications Allergies Allergy/AdvReac Type Severity Reaction Status Date / Time dicloxacillin Allergy Intermediate Skin Rash Verified 06/20/24 07:44 Home Medication ?Medication ?Instructions ?Recorded multivitamin (Daily Multi-Vitamin 1 ea PO DAILY 10/16/14 tablet) ergocalciferol (vitamin D2) 10 mcg 1 tab-cap PO DAILY 05/21/16 (400 unit) tablet fexofenadine 180 mg tablet 180 mg PO Q24H PRN 04/05/23 (Vannessa Allergy) triamcinolone acetonide 55 mcg 2 spray intranasal DAILY 04/05/23 nasal spray aerosol (Nasacort Allergy) estradiol 10 mcg vaginal tablet 10 mcg vaginal DAILY 10/04/23 (Vagifem) Current Visit Medications: Current Medications Generic Name Dose Route Start Last Admin Trade Name Freq PRN Reason Stop Dose Admin Sodium Chloride 1,000 mls @ 125 mls/hr 06/20/24 07:45 06/20/24 07:54 Saline 1000ml Bag IV 07/20/24 07:44 125 mls/hr INFUSION TIESHA Administration IV Miscellaneous Supplies 1 each 06/20/24 06:00 Iv Access IV 06/20/24 23:59 DIRECTED TIESHA Sodium Chloride 0 ml 06/20/24 06:00 Normal Saline Flush 10 Ml Syr IV 06/20/24 23:59 PRN PRN Sodium Chloride 0 ml 06/20/24 06:00 Normal Saline 10 Ml Vial IJ 06/20/24 23:59 DIRECTED PRN Sterile Water 0 ml 06/20/24 06:00 Water,Injection,Sterile 10 Ml Vial IJ 06/20/24 23:59 DIRECTED PRN PFSH Active Problems Active Problems: Problem Status Onset Code Palpitations Acute R00.2 AMADOR (obstructive sleep apnea) Chronic G47.33 Thickened endometrium Acute R93.89 Postmenopausal bleeding Acute N95.0 Pain in joints of both feet Acute M25.571, M25.572 Hammertoe of right foot Acute M20.41 Contracture of right Achilles tendon Acute M67.01 Pain in right foot Acute M79.671 Plantar fasciitis Acute M72.2 Achilles tendinitis Acute M76.60 Prediabetes Acute R73.03 Nocturnal hypoxia Acute G47.34 Stiff joint Acute M25.60 Single kidney Acute Z90.5 Gestational diabetes Acute O24.419 Interstitial lung disease Acute J84.9 Hearing loss of both ears Acute H91.93 Otosclerosis of left ear Acute H80.92 Acquired absence of kidney Acute Z90.5 Hypercholesteremia Acute E78.00 Sensorineural hearing loss Acute H90.5 Atrophic vaginitis Acute N95.2 Neuroma Acute D36.10 Hand anomaly Acute Q74.0 Tongue lesion Acute K14.8 Otitis media, chronic serous Acute H65.20 Eustachian tube dysfunction Acute H69.80 SOB (shortness of breath) Acute R06.02 Snoring Acute R06.83 Fatigue Acute R53.83 Medical History Medical History History of IBS Otosclerosis Obesity Vertigo Anxiety Palpitations Tinnitus [place] [facility] [place] Vestibular migraine Sees Dr. Glover. 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 Medical History Comments:: 06/20/24: Pt has experienced SOB, is on BiPap, PFT's done a week ago for asthma assessment, waiting results. Pt had an echo at [facility] 05/20/24. Pt reports she will have heart monitor 06/21/24 for palpitations. Pt reports she has random palpitations daily. Surgical History Surgical History History of section S/P colonoscopy 2008- Dr. Wihte- Diverticulosis salivary gland removed secondary to blockage. Tobacco Smoking/Tobacco Use Status: Never Second hand exposure: No Alcohol Alcohol Intake: current Alcohol intake frequency: a few times a week Alcohol type: beer, wine and hard liquor Substance Use Substance use: Never Substance use type: does not use Prental History History 2 Para 2 Hx # Term Pregnancies Multiple births Hx # Pregnancies Ectopic pregnancies AB induced Hx Number of Living Children AB spontaneous Past Pregnancies Del. Date GA/Weeks # Preg Succ Route Wgt Sex Labor Lgth Anesthesia Location Prov Complic Unknown 4450.875 g Female Unknown Yes 4195.729 g Male Delivery Date: Last Updated by: Yolanda Altman Baby born in 1983. Delivery Date: Last Updated by: Yolanda Anupama Baby born 1988 Vital Signs and Lab Results Vital Signs Most Recent Vital Signs in EMR: Most Recent Vital Signs Temp Pulse Resp BP Pulse Ox 36.6 C 67 16 128/76 94 06/20/24 07:34 06/20/24 07:34 06/20/24 07:34 06/20/24 07:34 06/20/24 07:34 Lab Results Blood Type / Crossmatch: Antibody Screen NEGATIVE 06/19/24 Complete Blood Count: White Blood Count 8.31 10^3/uL (4.4-10.8) 06/19/24 10:50 Red Blood Count 4.34 10^6/uL (3.93-5.22) 06/19/24 10:50 Hemoglobin 14.6 g/dL (11.2-15.7) 06/19/24 10:50 Hematocrit 41.0 % (36.0-46.0) 06/19/24 10:50 Platelet Count 252 10^3/uL (130-400) 06/19/24 10:50 Complete Metabolic Panel: No Data to Display Liver Function Panel: No Data to Display Coagulation Panel: No Data to Display Cardiac Panel: No Data to Display Arterial Blood Gas: No Data to Display Venous Blood Gas: No Data to Display Pancreas Panel: No Data to Display Thyroid Panel: Thyroid Stimulating Hormone (TSH) 2.91 uIU/Ml (0.36-3.74) 06/19/24 10:50 Infectious Disease: No Data to Display Blood Cultures: No Data to Display Toxicology Panel: No Data to Display Imaging and Studies Imaging and Studies Study information below may be from another EMR and interpreted by another provider. Please see original notes in EMR for more complete details. Echocardiogram Summary: 06/19/24 Conclusion Normal left ventricular wall thickness and chamber size. Ejection fraction is 60%. Wall motion is normal Normal right ventricular size and function Both atria are normal in size There is no structural or hemodynamically significant valvular disease Right ventricular systolic pressure could not be estimated Pulmonary Function Summary: 06/19/24 Interpretation Spirometry: Normal FEV1/FVC but decreased FEV1 and FVC. Lung Volumes: Moderate decrease in lung volumes Diffusion Capacity: Mildly decreased. Impression Pulmonary function test Normal FEV1/FVC at 77%. Moderate decrease in FEV1 70% and FVC 68. Lung volumes showed moderate restriction mild decrease in SVC is 76%. Moderate decrease in diffusion at 60%. Suggest at least restrictive disease. Anesthesia Assessment and Plan Anesthesia History Personal History: No History of Anesthesia Complications Family History: No Family History of Anesthesia Complications Exercise Tolerance Exercise Tolerance: Metabolic Equivalents<4 Pertinent Negatives Pertinent Negatives: No Symptoms of GERD, No Major Cardiovascular Symptoms or Complaints and No History of CVA/TIA Cardiac & Pulmonary Exam Cardiac Exam: Normal S1/S2 Heart Sounds Pulmonary Exam: Clear Bilateral Breath Sounds Cardiac and Pulmonary Comment:: AMADOR Implantable Cardiac Device Does patient have a Pacemaker or an ICD?: No Airway Exam Known Difficult Airway: No Mallampati Class: 2 Mouth Opening: Normal (> 3cm) Thyromental Distance: Greater than 3 cm Neck Range of Motion: Full ROM Neck Circumference: Normal Teeth Condition: Normal Dentition ASA Classification ASA Score: ASA 3 Emergency Case?: No NPO Status NPO Status: NPO Clears >2 hours, Solids >8 hours Anesthesia Plan Resuscitation Status: Full Code Anesthesia Technique: General Anesthesia Airway Planned: Natural Airway Monitors Used: Standard Monitors
[2024-06-20 08:33] VITALS: BMI 35.1
--- NOTE | 2024-06-20 09:00 | ENDO_PTH ---
PATIENT: Roxie Morales LOC: [facility] U#:[id number] AGE/SX: 63/F ROOM: RE06/20/[address]: Suha Jones DO : 1960 BED: DIS: 06/20/2024 SPEC #: [id number] RECD: 06/20/24 13:03 STATUS: DANIAL RE #: [id number] JYOTI: 06/20/24 09:[address]: Suha Jones DEPT: Surgical Specimen RECD BY: Dai Tim ENTERED: 06/20/24 13:05 SP TYPE: Endo OTHR DR: Marilou Velasquez Tissues: 1 - ENDOCERVICAL BX/CURRETTE 2 - ENDOMETRIUM BX/CURRETTE Procedures: GROSS AND MICRO LEVEL 4 IMMUNOPEROXIDASE STAIN Comments: [id number]
[2024-06-20 09:22] VITALS: BP 107/59; PULSE 63; RESP 16; TEMP 36.1; O2SAT 90
--- NOTE | 2024-06-20 09:24 | W.PM.OP ---
Date of service: 06/20/24 Time of Service: 09:24 Operative Note Operative Note DATE OF PROCEDURE: 06/20/24 PRE-OP DIAGNOSIS: Thickened endometrium, postmenopausal bleeding, failed endometrial sampling POST-OP DIAGNOSIS: same PROCEDURE: Hysteroscopy with fractional dilation and curettage SURGEON: Suha Jones ANESTHESIA TYPE: MAC Refer to Anesthesia Record ESTIMATED BLOOD LOSS: 5 PATHOLOGY: other (1. Endocervical curettage 2. Endometrial curettage) COMPLICATIONS: None Patient was transported to: same day Patient's condition: stable Indications: Thickened endometrium, postmenopausal bleeding, endometrial sampling unsatisfactory for diagnosis in the office Findings: Smooth regular endometrial cavity Procedure Description: After full informed consent was obtained, patient was taken the operating suite with an IV running. She is placed in dorsal supine position and anesthesia administered. She was then placed in the modified dorsolithotomy position in [facility]. She had pneumatic compression stockings for DVT prophylaxis. No antibiotic prophylaxis was warranted. Exam under anesthesia revealed a uterus that was midline and mobile. There is no evidence of adnexal mass. She was prepped and draped in the usual sterile fashion. Speculum was inserted in the vaginal vault and a single-tooth tenaculum used to grasp the anterior lip of the cervix. Cervical os was gently dilated in a systematic fashion to the point that a 4 mm hysteroscope could be passed without difficulty. With instillation of normal saline hysteroscope was performed. Smooth regular endometrium was noted. There was no evidence of polyp or fibroid. At this point the hysteroscope portion was terminated and a total fluid deficit was 75 cc of normal saline. Fractional curettage was performed with first sampling of the endocervix, followed by endometrial curettage. Both specimens were sent for examination. Tenaculum was removed and puncture sites hemostatic. Speculum was removed from the vaginal vault and the patient was returned to the dorsal supine position. She woke from anesthesia without difficulty. She was taken to the same-day surgical area in stable condition. Complications: None apparent Fluids: Crystalloid per anesthesia +75 cc of fluid deficit from the hysteroscope portion of the examination Pathology: 1. Endocervical curettage 2. Endometrial curettage EBL: 5 mL.
[2024-06-20 10:02] VITALS: BP 120/60; PULSE 56; RESP 16; TEMP 36.1; O2SAT 95
--- NOTE | 2024-06-20 13:10 | W.ANESPOSTOP ---
Postoperative Evaluation Date, Time and Location Date Performed: 06/20/24 Time Performed: 10:00 Patient Location: Day Surgery Unit Vital Signs Most Recent Imported Vital Signs: Most Recent Vital Signs Temp Pulse Resp BP Pulse Ox 36.1 C L 56 L 16 120/60 95 06/20/24 10:02 06/20/24 10:02 06/20/24 10:02 06/20/24 10:02 06/20/24 10:02 Pain Score Most Recent Pain Score: Most Recent Pain Score Pain Level 0 06/20/24 10:02 Assessment Mental Status: Awake (Alert & Oriented to Patient Baseline) Airway and Respiratory Function: Patent airway with normal (patient baseline) respiratory exam Cardiovascular Function: Hemodynamically Stable Hydration Status: Adequately Hydrated Nausea & Vomiting: No Nausea or Vomiting Pain: Pt. Denies Any Pain Peripheral Nerve Block: Patient did not receive a nerve block
== END 2024-06-20 10:20 | disposition home or self-care (01) ==
PROVIDERS: PCP Nurse Practitioner Family; Visit Provider Obstetrics & Gynecology
PROC: 0UDB8ZZ Extraction of Endometrium, Via Natural or Artificial Opening Endoscopic (ICD-10-PCS; CPT 58558; principal; 2024-06-20 08:45)
DX: N95.0 Postmenopausal bleeding (principal); C54.1 Malignant neoplasm of endometrium; N87.9 Dysplasia of cervix uteri, unspecified
CPT/HCPCS: 58558; 88305; 88361; J1885; J2001; J2405; J2704

== ENCOUNTER → 2024-06-21 08:14 | Outpatient (BNVA) | payer MEDICARE, SELFPAY | PROVIDERS: PCP Nurse Practitioner Family; Referring Provider Nurse Practitioner Family; Visit Provider Internal Medicine Critical Care Medicine | DX: J45.30 Mild persistent asthma, uncomplicated (principal); J84.9 Interstitial pulmonary disease, unspecified; G47.33 Obstructive sleep apnea (adult) (pediatric); R00.2 Palpitations | CPT/HCPCS: 99214 ==

== ENCOUNTER 2024-06-21 11:26 | Outpatient (CLI) | payer MEDICARE, SELFPAY | END 2024-06-21 11:27 | disposition home or self-care (01) | PROVIDERS: PCP Nurse Practitioner Family; Visit Provider Internal Medicine Critical Care Medicine | DX: R00.2 Palpitations (principal) | CPT/HCPCS: 93246 ==

== ENCOUNTER 2024-07-10 09:54 | Outpatient (CLI) | payer MEDICARE, SELFPAY ==
--- NOTE | 2024-07-10 12:39 | W.CARDEVENT ---
Date of service: 07/10/24 Time of Service: 12:39 Cardiac Event Recorder Referring Provider:: Meir Samayoa Indications:: Palpitations Cardiac Event Note: This is a cardiac event monitor. Patient was monitored for 11 days and 18 hours Rhythm throughout was sinus with an average heart rate of 69. Minimum was 48, maximum 134 There were very rare isolated ventricular ectopic beats There were occasional isolated atrial premature beats The episode labeled SVT was in fact sinus tachycardia rate 114 Symptoms were reported which overall correlated the majority of the time to sinus rhythm, rate in the 70s
== END 2024-07-10 09:55 | disposition home or self-care (01) ==
LOC: CARDOPNVT 09:54
PROVIDERS: PCP Nurse Practitioner Family; Visit Provider Internal Medicine Cardiovascular Disease
DX: I47.10 Supraventricular tachycardia, unspecified (principal)
CPT/HCPCS: 93248

== ENCOUNTER → 2024-07-23 08:40 | Outpatient (BNVA) | payer MEDICARE, SELFPAY | PROVIDERS: PCP Nurse Practitioner Family; Referring Provider Nurse Practitioner Family; Visit Provider Internal Medicine Critical Care Medicine | DX: J45.30 Mild persistent asthma, uncomplicated (principal); J84.9 Interstitial pulmonary disease, unspecified; G47.33 Obstructive sleep apnea (adult) (pediatric) | CPT/HCPCS: 99213 ==

== ENCOUNTER 2024-11-07 02:42 | Outpatient (CLI) | payer MEDICARE, SELFPAY ==
[2024-11-07 12:11] LABS: Abs Immature Grans 0.04 10^3/uL (0.0-0.06); Absolute Basophil Count 0.03 10^3/uL (0.0-0.2); Absolute Eosinophil Count 0.17 10^3/uL (0.0-0.7); Absolute Lymphocyte Count 1.12 10^3/uL (1.2-3.4); Absolute Monocyte Count 0.95 10^3/uL (0.1-0.8); Absolute Neutrophil Count 6.76 10^3/uL (1.2-6.7); Basophils % 0.3 %; Eosinophils % 1.9 %; HGB 14.5 g/dL (11.2-15.7); Immature Grans % 0.4 %; Lymphocytes % 12.3 %; MCH 33.7 pg (27.0-33.0); MCHC 35.4 % (32.0-36.0); MCV 95 fL (80-95); MPV 9.9 fL (8.0-11.0); Monocytes % 10.5 %; Neutrophils % 74.6 %; Platelet Count 174 10^3/uL (130-400); RDW 12.6 % (11.7-14.6); RDW-SD 43.3 fL; WBC 9.07 10^3/uL (4.4-10.8)
== END 2024-11-07 02:43 | disposition home or self-care (01) ==
LOC: LBO 02:49
PROVIDERS: PCP Nurse Practitioner Family; Visit Provider Radiology Radiation Oncology
DX: C54.1 Malignant neoplasm of endometrium (principal)
CPT/HCPCS: 36415; 85025

== ENCOUNTER 2024-11-20 14:12 | Outpatient (CLI) | payer MEDICARE, SELFPAY ==
[2024-11-20 12:38] LABS: Abs Immature Grans 0.03 10^3/uL (0.0-0.06); Absolute Basophil Count 0.04 10^3/uL (0.0-0.2); Absolute Eosinophil Count 0.18 10^3/uL (0.0-0.7); Absolute Lymphocyte Count 0.93 10^3/uL (1.2-3.4); Absolute Neutrophil Count 6.51 10^3/uL (1.2-6.7); Basophils % 0.5 %; Eosinophils % 2.1 %; HCT 43.2 % (36.0-46.0); Immature Grans % 0.3 %; Lymphocytes % 10.8 %; MCH 33.2 pg (27.0-33.0); MCHC 34.7 % (32.0-36.0); MCV 96 fL (80-95); MPV 9.7 fL (8.0-11.0); Monocytes % 10.5 %; Neutrophils % 75.8 %; Platelet Count 223 10^3/uL (130-400); RBC 4.52 10^6/uL (3.93-5.22); RDW 12.5 % (11.7-14.6); RDW-SD 43.6 fL; WBC 8.59 10^3/uL (4.4-10.8)
[2024-11-20 12:39] LABS: Bilirubin Negative (Negative); Blood Trace-intact (Negative); Clarity Clear (Clear); Glucose Negative (Negative); Ketones Negative (Negative); Leukocyte Esterase Trace (Negative); Nitrite Negative (Negative); Specific Gravity <= 1.005 (1.005-1.025); Urobilinogen 0.2 mg/dL (Up to 0.2)
[2024-11-20 12:48] LABS: Bacteria Rare HPF (Negative); C & S Indicated? No; Casts Negative LPF (Negative); Crystals Negative HPF (Negative); Epithelial Cells Moderate HPF (Negative); Mucus Negative (Negative); Other Cells Negative (Negative); RBC 0-2 HPF (0-2)
== END 2024-11-20 14:13 | disposition home or self-care (01) ==
LOC: LBO 14:13
PROVIDERS: PCP Nurse Practitioner Family; Visit Provider Radiology Radiation Oncology
DX: C54.1 Malignant neoplasm of endometrium (principal); Z92.3 Personal history of irradiation; R30.0 Dysuria
CPT/HCPCS: 36415; 81003; 81015; 85025

== ENCOUNTER 2024-12-07 22:03 | Outpatient (REF) | payer MEDICARE, SELFPAY ==
[2024-12-07 21:49] LABS: ALT 40 U/L (14-59); AST 29 U/L (15-37); Albumin 3.9 g/dL (3.4-5.0); Alkaline Phosphatase 131 U/L (46-116); BUN 16 mg/dL (7-18); Bilirubin, Total 0.32 mg/dL (0.2-1.0); CREATININE 0.9 mg/dL (0.55-1.02); Calcium 9.5 mg/dL (8.5-10.1); Calculated LDL 123 mg/dL (<100); Chloride 105 mmol/L (98-107); Cholesterol 225 mg/dL (<200); Estimated GFR 70.51 (mL/min/1.73m2); Glucose 109 mg/dL (74-106); HDL Cholesterol 37 mg/dL (40-60); Hemoglobin A1C 5.7 % (<5.7); Potassium 3.8 mmol/L (3.5-5.1); Sodium 144 mmol/L (136-145); Total Protein 7.8 g/dL (6.4-8.2); Triglyceride 328 mg/dL (<150)
== END 2024-12-07 22:04 | disposition home or self-care (01) ==
LOC: NCHCN 22:03
PROVIDERS: PCP Nurse Practitioner Family; Visit Provider Nurse Practitioner Family
DX: E78.5 Hyperlipidemia, unspecified (principal); R73.03 Prediabetes
CPT/HCPCS: 80053; 80061; 83036

== ENCOUNTER 2024-12-27 02:34 | Outpatient (CLI) | payer MEDICARE, SELFPAY ==
--- NOTE | 2024-12-27 | DI.DEXA_ITS ---
Exam(s) XR DEXA BONE DENSITY W/WO THEE EXAM: XR DEXA BONE DENSITY W/WO THEE CLINICAL HISTORY: Asymptomatic menopausal state, Z78.0 TECHNIQUE: Routine DEXA evaluation of the lumbar spine, hip, or forearm. COMPARISON: No exams were available for comparison FINDINGS: Performed on a Hologic unit. Lateral image: No compression fracture evident. Lumbar Spine total T-score: 0.1 Hip total T-score:-0.4 Independent reading at the level of the femoral neck yields T-score of -0.6 Forearm total T-score: Minus 3.6. This is in osteoporosis range IMPRESSION: Bone mineral density measures in the osteoporosis range for the wrist. Fracture risk is high at this level. Bone mineral density measures within normal limits for the lumbar spine and hip, indicating that fracture risk at these level is low. Note: Any spine fracture indicates 5x risk for subsequent spine fracture and 2x risk for subsequent h ip fracture. World Health Organization criteria for BMD interpretation classify patients: Normal...... T- Score at or above -1.0 Osteopenic... T- Score between -1.0 and -2.5 Osteoporosis... T-Score at or below -2.5
== END 2024-12-27 02:54 ==
LOC: DI 02:34
PROVIDERS: PCP Nurse Practitioner Family; Visit Provider Nurse Practitioner Family
DX: Z78.0 Asymptomatic menopausal state (principal); M81.0 Age-related osteoporosis without current pathological fracture
CPT/HCPCS: 77080

== ENCOUNTER 2025-01-02 00:09 | Outpatient (CLI) | payer MEDICARE, SELFPAY ==
--- NOTE | 2025-01-02 15:03 | DI.MAMMO_ITS ---
Exam(s) MAMMO SCREENING EXAM: MAMMO SCREENINg CLINICAL HISTORY: Screening, Z12.39 TECHNIQUE: Mammograms were interpreted according to the usual protocol including computer analysis w [employer] CAD system, tomosynthesis and C-view imaging. COMPARISON: 2014 through 2022 FINDINGS: The breasts are composed of scattered fibroglandular densities, Breast Density category B. No suspicious masses or suspicious microcalcifications are seen. No skin thickening or abnormal axillary lymph nodes are seen. There has been no significant change from prior exams. IMPRESSION: BI-RADS Category 1, Negative mammogram Yearly screening mammography is recommended. Breast Density - Category B, scattered fibroglandular densities. A negative radiographic report should not delay biopsy if a dominant or clinically suspicious mass is present. Up to ten percent of cancers are not identified on mammography. A negative report may reinforce clinical impression. Adenosis and dense breasts may obscure an underlying neoplasm. False positive reports average 6 to 10%. Patient will receive a letter notifying them of these results.
== END 2025-01-02 00:29 ==
LOC: DI 00:09
PROVIDERS: PCP Nurse Practitioner Family; Visit Provider Nurse Practitioner Family
DX: Z12.31 Encounter for screening mammogram for malignant neoplasm of breast (principal); R92.323 Mammographic fibroglandular density, bilateral breasts
CPT/HCPCS: 77063; 77067

== ENCOUNTER → 2025-01-21 11:08 | Outpatient (BNVA) | payer MEDICARE, SELFPAY | PROVIDERS: PCP Nurse Practitioner Family; Referring Provider Nurse Practitioner Family; Visit Provider Physician Assistant Surgical | DX: J84.9 Interstitial pulmonary disease, unspecified (principal); G47.34 Idiopathic sleep related nonobstructive alveolar hypoventilation | CPT/HCPCS: 99214 ==

== ENCOUNTER 2025-01-28 02:22 | Outpatient (CLI) | payer MEDICARE, SELFPAY ==
[2025-01-28] MEDS: Levalbuterol HFA 15 GM INH 4 PUFF IH (09:00)
[2025-01-28] MEDS: Inhaler, Assist Device 1 EACH MC (09:00)
--- NOTE | 2025-01-28 14:13 | W.PFT ---
Date of service: 01/28/25 Time of Service: 08:03 Pulmonary Function Test Result Indications: ILD Interpretation Spirometry: There is no airflow limitation. No significant bronchodilator response. Lung Volumes: Normal lung volumes Diffusion Capacity: Decreased diffusion Airway Pressure: Airways resistance normal. Impression Isolated diffusoion deficit Clinical Correlation therefore is recommended.
== END 2025-01-28 02:23 | disposition home or self-care (01) ==
LOC: RT 02:22
PROVIDERS: PCP Nurse Practitioner Family; Visit Provider Student in an Organized Health Care Education/Training Program
DX: J84.9 Interstitial pulmonary disease, unspecified (principal)
CPT/HCPCS: 94060; 94726; 94729

== ENCOUNTER 2025-05-29 19:17 | Outpatient (REF) | payer MEDICARE, SELFPAY ==
[2025-05-29 14:32] LABS: Abs Immature Grans 0.03 10^3/uL (0.0-0.06); HCT 42.0 % (36.0-46.0); HGB 14.5 g/dL (11.2-15.7); Immature Grans % 0.5 %; MCH 33.6 pg (27.0-33.0); MCHC 34.5 % (32.0-36.0); MCV 97 fL (80-95); MPV 10.7 fL (8.0-11.0); Platelet Count 243 10^3/uL (130-400); RBC 4.31 10^6/uL (3.93-5.22); RDW 13.1 % (11.7-14.6); RDW-SD 46.8 fL; WBC 6.51 10^3/uL (4.4-10.8)
[2025-05-29 15:22] LABS: ALT 46 U/L (14-59); AST 24 U/L (15-37); Albumin 3.9 g/dL (3.4-5.0); Alkaline Phosphatase 111 U/L (46-116); Anion Gap 9.5 mmol/L (3-11); BUN 17 mg/dL (7-18); Bilirubin, Total 0.5 mg/dL (0.2-1.0); CO2 26.5 mmol/L (21.0-32.0); Calcium 9.0 mg/dL (8.5-10.1); Chloride 104 mmol/L (98-107); Estimated GFR 95.32 (mL/min/1.73m2); Glucose 120 mg/dL (74-106); Potassium 4.4 mmol/L (3.5-5.1); Sodium 140 mmol/L (136-145); TSH (W/Ref FT4) 2.01 uIU/mL (0.36-3.74); Total Protein 7.3 g/dL (6.4-8.2)
== END 2025-05-29 19:18 | disposition home or self-care (01) ==
LOC: NCHCN 19:17
PROVIDERS: PCP Nurse Practitioner Family; Visit Provider Nurse Practitioner Family
DX: R94.6 Abnormal results of thyroid function studies (principal); R74.9 Abnormal serum enzyme level, unspecified; D72.810 Lymphocytopenia
CPT/HCPCS: 80053; 84443; 85025

== ENCOUNTER → 2025-07-24 09:47 | Outpatient (BNVA) | payer MEDICARE, SELFPAY | PROVIDERS: PCP Nurse Practitioner Family; Referring Provider Nurse Practitioner Family; Visit Provider Internal Medicine Pulmonary Disease | DX: J84.9 Interstitial pulmonary disease, unspecified (principal); J45.40 Moderate persistent asthma, uncomplicated; G47.33 Obstructive sleep apnea (adult) (pediatric) | CPT/HCPCS: 99214 ==

== ENCOUNTER → 2025-08-21 10:23 | Outpatient (BNVA) | payer MEDICARE, SELFPAY | PROVIDERS: PCP Nurse Practitioner Family; Referring Provider Nurse Practitioner Family; Visit Provider Physical Therapy Assistant | DX: Z12.11 Encounter for screening for malignant neoplasm of colon (principal); Z86.0101 Personal history of adenomatous and serrated colon polyps | CPT/HCPCS: S0285 ==

== ENCOUNTER 2025-09-19 16:04 | Outpatient (REF) | payer MEDICARE, SELFPAY | END 2025-09-19 16:05 | disposition home or self-care (01) | LOC: NCHCN 16:04 | PROVIDERS: PCP Nurse Practitioner Family; Visit Provider Family Medicine | DX: R30.0 Dysuria (principal) | CPT/HCPCS: 87077; 87086; 87186 ==

== ENCOUNTER 2025-10-14 09:14 | Day surgery (SDC) | payer MEDICARE, SELFPAY ==
[2025-10-14 09:40] VITALS: BP 131/89; PULSE 81; RESP 16; TEMP 36.3; O2SAT 96
[2025-10-14] MEDS: Lactated Ringers 1,000 ML 80 ML IV (10:09)
--- NOTE | 2025-10-14 10:11 | W.ANESPRE ---
General Info Date of Service Date Performed: 10/14/25 Height: 5 ft 5 in Weight: 90.5 kg Body Mass Index (BMI): 33.2 Surgical Procedure: Operation Date: 10/14/25 08:50 Proposed Procedure Side Surgeon daniel Stewart MD Meds Allergies and Home Medications Allergies Allergy/AdvReac Type Severity Reaction Status Date / Time No Known Allergies Allergy Verified 10/14/25 09:49 Home Medication Medication Instructions Recorded multivitamin (Daily Multi-Vitamin 1 ea PO DAILY 10/16/14 tablet) ergocalciferol (vitamin D2) 10 mcg 1 tab-cap PO DAILY 05/21/16 (400 unit) tablet fexofenadine 180 mg tablet 180 mg PO Q24H PRN 04/05/23 (Vannessa Allergy) triamcinolone acetonide 55 mcg 2 spray intranasal DAILY 04/05/23 nasal spray aerosol (Nasacort Allergy) psyllium husk 0.4 gram capsule 0.8 g PO DAILY 07/24/25 (Metamucil) bisacodyl 5 mg tablet,delayed 5 mg PO ONCE #4 tabs 08/21/25 release (Dulcolax (bisacodyl)) polyethylene glycol 3350 17 17 g PO ONCE #238 grams 08/21/25 gram/dose oral powder mometasone-formoterol HFA 100 2 puff inhalation BID #13 grams 08/22/25 mcg-5 mcg/actuation aerosol inhaler (Dulera) Current Visit Medications: Current Medications Generic Name Dose Route Start Last Admin Trade Name Freq PRN Reason Stop Dose Admin Ringer's Solution 1,000 mls @ 80 mls/hr 10/14/25 06:00 10/14/25 10:09 IV 10/14/25 23:59 80 mls/hr INFUSION TIESHA Administration IV Miscellaneous Supplies 1 each 10/14/25 06:00 Iv Access IV 10/14/25 23:59 DIRECTED TIESHA Sodium Biphosphate/Sodium Phosphate 133 ml 10/14/25 06:00 Na Phosphate Enema-Adult 133 Ml Btl CO 10/14/25 23:59 DIRECTED PRN Sodium Chloride 0 ml 10/14/25 06:00 Normal Saline Flush 10 Ml Syr IV 10/14/25 23:59 PRN PRN Sodium Chloride 0 ml 10/14/25 06:00 Normal Saline 10 Ml Vial IJ 10/14/25 23:59 DIRECTED PRN Sterile Water 0 ml 10/14/25 06:00 Water,Injection,Sterile 10 Ml Vial IJ 10/14/25 23:59 DIRECTED PRN PFSH Active Problems Active Problems: Problem Status Onset Code Moderate persistent asthma Acute J45.40 Endometrial adenocarcinoma Acute C54.1 AMADOR (obstructive sleep apnea) Chronic G47.33 Thickened endometrium Acute R93.89 Postmenopausal bleeding Acute N95.0 Pain in joints of both feet Acute M25.571, M25.572 Hammertoe of right foot Acute M20.41 Contracture of right Achilles tendon Acute M67.01 Pain in right foot Acute M79.671 Plantar fasciitis Acute M72.2 Achilles tendinitis Acute M76.60 Prediabetes Acute R73.03 Nocturnal hypoxia Acute G47.34 Stiff joint Acute M25.60 Single kidney Acute Z90.5 Gestational diabetes Acute O24.419 Interstitial lung disease Acute J84.9 Hearing loss of both ears Acute H91.93 Otosclerosis of left ear Acute H80.92 Acquired absence of kidney Acute Z90.5 Hypercholesteremia Acute E78.00 Sensorineural hearing loss Acute H90.5 Atrophic vaginitis Acute N95.2 Neuroma Acute D36.10 Hand anomaly Acute Q74.0 Tongue lesion Acute K14.8 Otitis media, chronic serous Acute H65.20 Eustachian tube dysfunction Acute H69.80 SOB (shortness of breath) Acute R06.02 Snoring Acute R06.83 Fatigue Acute R53.83 Medical History Medical History Asthma History of IBS Otosclerosis Obesity Vertigo Anxiety Tinnitus ENT provider at [facility] [place]. Vestibular migraine Sees Dr. Glover. 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 Surgical History Surgical History H/O total hysterectomy History of section S/P colonoscopy 2008- Dr. White- Diverticulosis salivary gland removed secondary to blockage. Tobacco Smoking/Tobacco Use Status: Never Passive smoking exposure: No Second hand exposure: No Alcohol Alcohol Intake: current Alcohol intake frequency: a few times a week Alcohol type: beer, wine and hard liquor Substance Use Substance use: Never Substance use type: does not use Prental History History 2 Para 2 Hx # Term Pregnancies Multiple births Hx # Pregnancies Ectopic pregnancies AB induced Hx Number of Living Children AB spontaneous Past Pregnancies Del. Date GA/Weeks # Preg Succ Route Wgt Sex Labor Lgth Anesthesia Location Prov Complic Unknown 4450.875 g Female Unknown Yes 4195.729 g Male Delivery Date: Last Updated by: Yolanda Altman Baby born in 1983. Delivery Date: Last Updated by: Yolanda Altman Baby born 1988 Vital Signs and Lab Results Vital Signs Most Recent Vital Signs in EMR: Most Recent Vital Signs Temp Pulse Resp BP Pulse Ox 36.3 C L 81 16 131/89 96 10/14/25 09:40 10/14/25 09:40 10/14/25 09:40 10/14/25 09:40 10/14/25 09:40 Imaging and Studies Imaging and Studies Study information below may be from another EMR and interpreted by another provider. Please see original notes in EMR for more complete details. Echocardiogram Summary: 06/19/24 Conclusion Normal left ventricular wall thickness and chamber size. Ejection fraction is 60%. Wall motion is normal Normal right ventricular size and function Both atria are normal in size There is no structural or hemodynamically significant valvular disease Right ventricular systolic pressure could not be estimated Pulmonary Function Summary: 01/2025:Interpretation Spirometry: There is no airflow limitation. No significant bronchodilator response. Lung Volumes: Normal lung volumes Diffusion Capacity: Decreased diffusion Airway Pressure: Airways resistance normal. Impression Isolated diffusoion deficit Clinical Correlation therefore is recommended. 06/19/24 Interpretation Spirometry: Normal FEV1/FVC but decreased FEV1 and FVC. Lung Volumes: Moderate decrease in lung volumes Diffusion Capacity: Mildly decreased. Impression Pulmonary function test Normal FEV1/FVC at 77%. Moderate decrease in FEV1 70% and FVC 68. Lung volumes showed moderate restriction mild decrease in SVC is 76%. Moderate decrease in diffusion at 60%. Suggest at least restrictive disease. Anesthesia Assessment and Plan Anesthesia History Personal History: No History of Anesthesia Complications Family History: No Family History of Anesthesia Complications Exercise Tolerance Exercise Tolerance: Metabolic Equivalents<4 Pertinent Negatives Pertinent Negatives: No Symptoms of GERD Cardiac & Pulmonary Exam Cardiac Exam: Normal S1/S2 Heart Sounds Pulmonary Exam: Clear Bilateral Breath Sounds Implantable Cardiac Device Does patient have a Pacemaker or an ICD?: No Airway Exam Known Difficult Airway: No Mallampati Class: 2 Mouth Opening: Normal (> 3cm) Thyromental Distance: Greater than 3 cm Neck Range of Motion: Full ROM Neck Circumference: Normal Teeth Condition: Normal Dentition ASA Classification ASA Score: ASA 2 Emergency Case?: No NPO Status NPO Status: NPO Clears >2 hours, Solids >8 hours Anesthesia Plan Resuscitation Status: Full Code Anesthesia Technique: General Anesthesia Airway Planned: Natural Airway Monitors Used: Standard Monitors
[2025-10-14 10:14] VITALS: BMI 33.2
--- NOTE | 2025-10-14 11:17 | HPE_ITS ---
Date of service: 10/14/25 Time of Service: 11:17 Assessment and Plan Assessment and plan (1) Encounter for colonoscopy due to history of colonic polyp: Status: Acute Assessment and plan: Proceed w scheduled colonoscopy. Discussed Discussed colonoscopy procedure risks, benefits, alternatives and expectations. Proceed. (2) History of endometrial cancer: Status: Acute History of Present Illness Narrative: Colonoscopy HPI: 65yo F with history of polyps and endometrial cancer, presents for colonsocopy. No current lower GI symtpoms. Feels well. No prior crohns disease, no UC. No first degree family history of colorectal cancer. No ovarian cancer. PFSH All Active Problems (Updated 10/14/25 @ 11:19 by Margarita Stewart MD) History of endometrial cancer (Acute) Encounter for colonoscopy due to history of colonic polyp (Acute) Moderate persistent asthma (Acute) Endometrial adenocarcinoma (Acute) Biopsy-proven FIGO grade 2 05/2024-referral to [facility]ology. FIGO GRADE 2, Rec brachy therapy and external beam RT due to size, LVSI, Cervical stromal involvement Seen at [facility]-Robotic staging 07/26/2024 AMADOR (obstructive sleep apnea) (Chronic) Thickened endometrium (Acute) Postmenopausal bleeding (Acute) Pain in joints of both feet (Acute) Hammertoe of right foot (Acute) Contracture of right Achilles tendon (Acute) Pain in right foot (Acute) Plantar fasciitis (Acute) Achilles tendinitis (Acute) Prediabetes (Acute) Nocturnal hypoxia (Acute) Stiff joint (Acute) Single kidney (Acute) Gestational diabetes (Acute) Interstitial lung disease (Acute) Hearing loss of both ears (Acute) Otosclerosis of left ear (Acute) Acquired absence of kidney (Acute) Hypercholesteremia (Acute) Sensorineural hearing loss (Acute) Atrophic vaginitis (Acute) Neuroma (Acute) Hand anomaly (Acute) Tongue lesion (Acute) Otitis media, chronic serous (Acute) Eustachian tube dysfunction (Acute) SOB (shortness of breath) (Acute) Snoring (Acute) Fatigue (Acute) Medical History Asthma History of IBS Otosclerosis Obesity Vertigo Anxiety Tinnitus ENT provider at [facility]. Vestibular migraine Sees Dr. Glover. 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 Surgical History H/O total hysterectomy History of section S/P colonoscopy 2008- Dr. Mirandao- Diverticulosis salivary gland removed secondary to blockage. Family History Mother , in her sleep at age 89. 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 Sexually active: Yes Current gender identity: female What is your relationship status?: Panel score (0-1 are the most socially isolated patients): 1 What type of physical activity do you participate in: regular exercise Frequency: 3-4 times per week Seatbelt use: always Helmet use: Yes Do you feel safe at home: Yes Do you feel safe in your relationship?: Yes Female Reproductive History Menstrual Age of Menarche: 11 Menopause type: natural History History 2 Para 2 Hx # Term Pregnancies Multiple births Hx # Pregnancies Ectopic pregnancies AB induced Hx Number of Living Children AB spontaneous Past Pregnancies Del. Date GA/Weeks # Preg Succ Route Wgt Sex Labor Lgth Anesth esia Location Prov Complic Unknown 4450.875 g Female Unknown Yes 4195.729 g Male Delivery Date: Last Updated by: Yolanda Altman Baby born in 1983. Delivery Date: Last Updated by: Yolanda Altman Baby born 1988 Meds Allergies and Home Medications Allergies Allergy/AdvReac Type Severity Reaction Status Date / Time No Known Allergies Allergy Verified 10/14/25 09:49 Home Medications Medication Instructions Recorded Confirmed Type multivitamin (Daily Multi-Vitamin 1 ea PO DAILY 10/14/25 History tablet) ergocalciferol (vitamin D2) 10 mcg 1 tab-cap PO DAILY 05/21/16 10/14/25 History (400 unit) tablet fexofenadine 180 mg tablet 180 mg PO Q24H PRN 04/05/23 10/14/25 History (Vannessa Allergy) triamcinolone acetonide 55 mcg 2 spray intranasal OCTAVIO Y 04/05/23 10/14/25 History nasal spray aerosol (Nasacort Allergy) psyllium husk 0.4 gram capsule 0.8 g PO DAILY 07/24/25 10/14/25 History (Metamucil) bisacodyl 5 mg tablet,delayed 5 mg PO ONCE #4 tabs 10/14/25 Rx release (Dulcolax (bisacodyl)) polyethylene glycol 3350 17 17 g PO ONCE #238 grams 10/14/25 Rx gram/dose oral powder mometasone-formoterol HFA 100 2 puff inhalation BID #1 3 grams 08/22/25 10/14/25 Rx mcg-5 mcg/actuation aerosol inhaler (Dulera) Exam Narrative Exam Narrative: awake, NAD eomi, MMM midline trachea, neck is symmetric PULM: normal resp effort, equal chest rise with respiration, no wheezing audible CTA B CARDIAC: normal PMI, no jvd, regular rate, normal perfusion RRR abdomen is nondistended. extremities are without deformity, normal movement of all four extremities speech is clear and coherent mood and affect are congruent, no focal neurological deficits skin without rash Results Last Vital Signs Temp 97.3 F L 10/14/25 09:40 Pulse 81 10/14/25 09:40 Resp 16 10/14/25 09:40 BP 131/89 10/14/25 09:40 Pulse Ox 96 10/14/25 09:40 Time Spent Time spent with Patient: 40-54 minutes Time was spent: preparing to see the patient(eg.review tests), referring, communicating with other health career services representative and counseling the patient
--- NOTE | 2025-10-14 11:40 | BOWEL_PTH ---
PATIENT: Roxie Morales LOC: [facility] U#:[id number] AGE/SX: 65/F ROOM: RE10/14/[address]: Margarita Stewart MD : [id number] BED: DIS: 10/14/2025 SPEC #: [id number] RECD: 10/14/25 12:37 STATUS: DANIAL REQ #: [id number] JYOTI: 10/14/25 11:[address]: Margarita Stewart DEPT: Surgical Specimen RECD BY: Dai Tim ENTERED: 10/14/25 12:38 SP TYPE: Bowel OTHR DR: Marilou Velasquez Tissues: 1 - BIOPSY BOWEL Procedures: GROSS AND MICRO LEVEL 4 Comments: [id number]
[2025-10-14 11:51] VITALS: BP 105/67; PULSE 78; RESP 18; TEMP 36.6; O2SAT 94
--- NOTE | 2025-10-14 11:53 | W.PM.DSUDISC ---
Date of service: 10/14/25 Discharge Plan Disposition Patient Disposition: Home Condition: Stable Discharge Details Reason For Visit: colonoscopy Attending Provider: Margarita Stewart Primary Care Provider: Marilou Velasquez Home Meds and New Rx's Prescriptions: Continued triamcinolone acetonide [Nasacort Allergy] 55 mcg aerosol,spray 2 spray intranasal DAILY Rx Instructions: administer into each nostril psyllium husk [Metamucil] 0.4 gram capsule 0.8 g PO DAILY multivitamin [Daily Multi-Vitamin] 1 EACH tablet 1 ea PO DAILY ergocalciferol (vitamin D2) 400 UNIT tablet 1 tab-cap PO DAILY Dulera 100-5 mcg/actuation HFA aerosol inhaler 2 puff inhalation BID Qty: 13 12RF fexofenadine [Vannessa Allergy] 180 mg tablet 180 mg PO Q24H PRN Discontinued bisacodyl [Dulcolax (bisacodyl)] 5 mg tablet,delayed release (DR/EC) 5 mg PO ONCE Qty: 4 0RF Rx Instructions: Take per colonoscopy instructions provided by ordering providers office polyethylene glycol 3350 17 gram/dose powder 17 g PO ONCE Qty: 238 0RF Rx Instructions: Take per colonoscopy instructions provided by ordering providers office Discharge Instructions Additional Instructions: Colonoscopy today shows one tiny polyp that I removed from the descending colon. Your next colonoscopy will be due in 5 years if the polyp is tubular adenoma or hyperplastic polyp on the biopsy result. Your next colonoscopy will be due in 3 years if the polyp is sessile serrated adenoma on the biopsy result. Your prep was excellent, and the view of your colon today was excellent. I didnt have any difficulty getting through your colon. Stand Alone Forms: Portal Information Activity:: Activity as Tolerated Diet:: As Tolerated Discharge Orders Discharge Orders: Discharge Order (Routine); Ordered 10/14/25 Ordered By: Margarita Stewart DS: Diagnosis Discharge Diagnosis (1) Encounter for colonoscopy due to history of colonic polyp: Status: Acute (2) History of endometrial cancer: Status: Acute (3) Polyp of descending colon: Status: Acute
--- NOTE | 2025-10-14 11:53 | W.PM.OP ---
Operative Note Operative Note Refer to Anesthesia Record Date of Procedure: 10/14/25
--- NOTE | 2025-10-14 12:54 | W.COLOREPORT ---
Date of service: 10/14/25 Time of Service: 11:30 Colonoscopy Report Date of procedure: 10/14/25 Pre-op diagnosis general: screening for colorectal cancer Post-op diagnosis procedure note: same (1. descending colon polyp) Procedure: Colonoscopy with cold forceps polypectomy Surgeon: Margarita Stewart Anesthesia Type: General:No Airway Estimated blood loss (mL): 1 Pathology: none sent (1. descending colon polyp) Complications: None Indications: screening for colorectal cancer Prep: Miralax/Dulcolax (excellent) Procedure Description: Informed consent was obtained and the patient was taken to the procedure area. The patient was placed in left lateral decubitus position on the procedure table. Timeout was performed. Anesthesia was induced. A lubricated colonoscope was inserted through the anus and passed to the cecum. The cecum was identified by the ileocecal valve and the appendiceal orifice. The scope was then slowly withdrawn and the colonic and rectal mucosa examined. Descending colon polyp 3mm sessile excised with cold forceps. No diverticulosis was seen. The scope was retroflexed in the anorectal junction examined. Uncomplicated internal hemorrhoids present. Assessment and plan: Screening for colorectal cancer descending colon polyp One sessile polyp excised, no other lesions identified. Timing of next colonoscopy will depend on path of polyp. Next scope due in 5 years if tubular adenoma, 3 years if sessile serrated polyp. Next scope will be due in 5 years if hyperplastic due to personal history of endometrial cancer.
--- NOTE | 2025-10-14 20:30 | W.ANESPOSTOP ---
Postoperative Evaluation Date, Time and Location Date Performed: 10/14/25 Time Performed: 12:02 Patient Location: Day Surgery Unit Vital Signs Most Recent Imported Vital Signs: Most Recent Vital Signs Temp Pulse Resp BP Pulse Ox 36.6 C 78 18 105/67 94 10/14/25 11:51 10/14/25 11:51 10/14/25 11:51 10/14/25 11:51 10/14/25 11:51 Pain Score Most Recent Pain Score: Most Recent Pain Score Pain Level 0 10/14/25 11:51 Assessment Mental Status: Awake (Alert & Oriented to Patient Baseline) Airway and Respiratory Function: Patent airway with normal (patient baseline) respiratory exam Cardiovascular Function: Hemodynamically Stable Hydration Status: Adequately Hydrated Nausea & Vomiting: No Nausea or Vomiting Pain: Pt. Denies Any Pain Peripheral Nerve Block: Patient did not receive a nerve block
== END 2025-10-14 09:15 | disposition home or self-care (01) ==
PROVIDERS: PCP Nurse Practitioner Family; Visit Provider Surgery
PROC: 0DJD8ZZ Inspection of Lower Intestinal Tract, Via Natural or Artificial Opening Endoscopic (ICD-10-PCS; CPT 45378; principal; 2025-10-14 08:45)
DX: Z12.11 Encounter for screening for malignant neoplasm of colon (principal); Z85.42 Personal history of malignant neoplasm of other parts of uterus; D12.4 Benign neoplasm of descending colon; K64.8 Other hemorrhoids
CPT/HCPCS: 45380; 88305; J2704

== ENCOUNTER → 2025-10-17 06:06 | Outpatient (CLI) | payer MEDICARE, SELFPAY ==
--- NOTE | 2025-10-17 | DI.RAD_ITS ---
Exam(s) XR FOOT LT COMPLETE EXAM: XR FOOT LT COMPLETE CLINICAL HISTORY: LEFT FOOT PAIN, M79.672. TECHNIQUE: 2D digital imaging was performed. COMPARISON: CR XR FOOT RT COMPLETE from 10/05/2023 FINDINGS: 3 views No evidence of fracture or diastasis of the Lisfranc joint. Great toe metatarsophalangeal joint exhibits minimal degenerative changes. No osseous lesions nor erosions evident. There are some mild degenerative changes the 2nd tarsometatarsal joint. No pes planus. No inferior calcaneal spur. Tiny e nthesophyte noted posteriorly at the posterior calcaneus insertion of the Achilles tendon site. Tiny os trigonum incidentally noted. IMPRESSION: No acute osseous findings in the left foot. Other findings as above DATA REPOSITORY: RADIATION DOSE DELIVERED:
== END ==
LOC: DI 06:06
PROVIDERS: PCP Nurse Practitioner Family; Visit Provider Nurse Practitioner Family
DX: M79.672 Pain in left foot (principal)
CPT/HCPCS: 73630

== ENCOUNTER 2025-11-26 13:18 | Outpatient (REF) | payer MEDICARE, SELFPAY ==
[2025-11-26 15:24] LABS: Glucose Negative (Negative)
[2025-11-26 15:43] LABS: C & S Indicated? Yes; RBC 0-2 HPF (0-2); WBC 20-50 HPF (0-5)
== END 2025-11-26 13:19 | disposition home or self-care (01) ==
LOC: NCHCN 13:18
PROVIDERS: PCP Nurse Practitioner Family; Visit Provider Nurse Practitioner Family
DX: R39.9 Unspecified symptoms and signs involving the genitourinary system (principal)
CPT/HCPCS: 81003; 81015; 87086